=== PATIENT | male | born 1980 | race Caucasian/White ===

== ENCOUNTER 2017-02-16 20:18 | Emergency (ER) | payer SELFPAY ==
[~2017-02-16] VITALS: Ht 175.3 cm; Wt 72.0 kg
[2017-02-16 20:26] VITALS: BP 141/87; TEMP 37.1; O2SAT 100; Ht 175.3 cm; Wt 72.0 kg
[2017-02-16 20:48] VITALS: PULSE 104
--- NOTE | 2017-02-16 21:36 | EMERGENCY ROOM VISIT NOTE ---
History Report prepared by Mayraibpa: Telma Smith Under the Supervision of: Dr. Ruben Caldera D.O. First contact with patient: 20:27 Chief Complaint: OVERDOSE (ACCIDENTAL) Stated Complaint: HEROIN OVERDOSE Nursing Triage Summary: patient used heroin tonight, became unresponsive with resp difficulties. police were called, administered 8mg Narcan. patient was alert and oriented by time EMS arrived and has been since. only complaint at this time is that he is cold and tired. History of Present Illness The patient is a 36 year old male who presents to the Emergency Room with complaints of an episode of an overdose beginning about 2 hours ago. The patient states that he used heroin tonight and became unresponsive. The police were called and administered 8mg of Narcan. Per EMS the patient was alert and oriented on their arrival. The patient complains of being cold and tired. He denies any other illicit drug use. Source of History: patient Onset: 2 hours ago Position: other (global) Quality: other (overdose) Timing: other (episode) Note: Pt complains of being cold and tired. Review of Systems See HPI for pertinent positives & negatives. A total of 10 systems reviewed and were otherwise negative. Past Medical & Surgical Medical Problems: (1) No Known Active Medical Problems Family History No pertinent family history Social History Smoking Status: Current Every Day Smoker Alcohol Use: none Drug Use: heroin Marital Status: single Housing Status: lives with significant other Occupation Status: employed Current/Historical Medications No Active Prescriptions or Reported Meds Allergies Coded Allergies: No Known Allergies (Unverified , 02/16/17) Physical Exam Vital Signs Date Time Temp Pulse Resp B/P (MAP) Pulse Ox O2 Delivery O2 Flow Rate FiO2 02/16/17 20:48 104 02/16/17 20:26 37.1 104 18 141/87 100 Room Air Physical Exam CONSTITUTIONAL/VITAL SIGNS: Reviewed / noted above. GENERAL: Non-toxic in appearance. INTEGUMENTARY: Warm, dry, and [place]. HEAD: Normocephalic. EYES: without scleral icterus or trauma. ENT/OROPHARYNX: clear and moist. LYMPHADENOPATHY/NECK: Is supple without lymphadenopathy or meningismus. RESPIRATORY: Lungs clear and equal. CARDIOVASCULAR: Regular rate and rhythm. GI/ABDOMEN: Soft and nontender. No organomegaly or pulsatile mass. No rebound or guarding. Normal bowel sounds. EXTREMITIES: Warm and well perfused. BACK: No CVA tenderness. NEUROLOGICAL: Intact without focal deficits. PSYCHIATRIC: normal affect. MUSCULOSKELETAL: Normally developed with good muscle tone. Medical Decision & Procedures ED Course 2026: Previous medical records were reviewed. The patient was evaluated in room C9. A complete history and physical examination was performed. 2136: On reevaluation, the patient is doing well. I discussed the results and findings with the patient. He verbalized agreement of the treatment plan. The patient was discharged home. Medical Decision Differential diagnosis: Etiologies such as toxicologic, infection, hypoglycemia, electrolyte abnormalities, cardiac sources, intracerebral event, neurologic, as well as others were entertained. This is a 36-year-old male who overdosed on heroin. He was in the care of his girlfriend when this occurred. The girlfriend called EMS. Police arrived and gave the patient 8 mg of nasal Narcan and the patient was awake alert by the time EMS arrived. The patient was apparently unresponsive and had agonal breathing. The patient feels fine now. He has no complaints. He was observed here until being discharged to the care of his family. He was advised to avoid such activity in the future. Medication Reconcilliation Current Medication List: was personally reviewed by me Blood Pressure Screening Patient's blood pressure: Elevated blood pressure Blood pressure disposition: Elevated BP felt to be situational Impression Primary Impression: Heroin overdose Scribe Attestation The scribe's documentation has been prepared under my direction and personally reviewed by me in its entirety. I confirm that the note above accurately reflects all work, treatment, procedures, and medical decision making performed by me. Departure Information Dispostion Home / Self-Care Prescriptions No Active Prescriptions or Reported Meds Referrals No Doctor, Assigned (PCP) Patient Instructions My [facility] Additional Instructions Avoid activities that resulted in your ED visit today. Talk to your doctor as needed for your issues.
== END 2017-02-16 21:39 | disposition home or self-care (01) ==
LOC: EDBD 20:18 → C.EDC 20:19
DX: T40.1X2A Poisoning by heroin, intentional self-harm, initial encounter (principal); F17.200 Nicotine dependence, unspecified, uncomplicated

== ENCOUNTER 2017-03-29 07:31 | Emergency (ER) | payer OTHER ==
[~2017-03-29] VITALS: Ht 175.3 cm; Wt 65.0 kg
[2017-03-29 07:35] VITALS: TEMP 36.4; Ht 175.3 cm; Wt 65.0 kg
[2017-03-29] MEDS ORDERED: KETOROLAC TROMETHAMINE 30 MG/ML VIAL IV STA (07:55)
[2017-03-29 08:11] LABS: BASO % 0.1 %; BASO ABS # 0.01 K/uL (0-0.2); HEMATOCRIT 48.3 % (42-52); HEMOGLOBIN 17.4 g/dL (14.0-18.0); IG# 0.04 K/uL (0.00-0.02); LYMPH % 7.2 %; LYMPH ABS # 0.98 K/uL (1.2-3.4); MEAN CORPUSCULAR HEMOGLOBIN 33.9 pg (25-34); MEAN PLATELET VOLUME 10.5 fL (7.4-10.4); MONO % 5.2 %; MONO ABS # 0.71 K/uL (0.11-0.59); NEUT % 87.2 %; NEUT ABS # 11.94 K/uL (1.4-6.5); PLATELET COUNT 197 K/uL (130-400); RED CELL DISTRIBUTION WIDTH CV 12.7 % (11.5-14.5); WHITE BLOOD COUNT 13.68 K/uL (4.8-10.8)
--- NOTE | 2017-03-29 08:15 | DIAGNOSTIC IMAGING REPORT ---
SINGLE VIEW CHEST CLINICAL HISTORY: Fever. Sepsis. FINDINGS: An AP, portable, upright chest radiograph is compared to study dated 01/12/2016. The examination is degraded by portable technique and patient rotation. The cardiomediastinal silhouette is unremarkable. The lungs and pleural spaces are clear. No pneumothorax is seen. The bony thorax is grossly intact. IMPRESSION: No active disease in the chest. Electronically signed by: Tyshawn Chávez M.D. 03/29/2017 8:14 AM Dictated Date/Time: 03/29/2017 8:14 AM
[2017-03-29 08:20] VITALS: O2SAT 100
[2017-03-29 08:27] LABS: BLOOD UREA NITROGEN 9 mg/dl (7-18); CALCIUM 10.3 mg/dl (8.5-10.1); CARBON DIOXIDE 22 mmol/L (21-32); CREATININE 0.95 mg/dl (0.60-1.40); GLUCOSE 134 mg/dl (70-99); LIPASE 119 U/L (73-393); POTASSIUM 3.7 mmol/L (3.5-5.1); SODIUM 133 mmol/L (136-145)
[2017-03-29 08:36] LABS: ALKALINE PHOSPHATASE 87 U/L (45-117); ALT/SGPT 40 U/L (12-78); AST/SGOT 24 U/L (15-37); CKMB 1.1 ng/ml (0.5-3.6)
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
[2017-03-29 09:06] VITALS: BP 172/106; PULSE 77; O2SAT 100
== END 2017-03-29 09:08 | disposition home or self-care (01) ==
LOC: C.EDB 07:32 → C.EDA 09:08
DX: R07.9 Chest pain, unspecified (principal); R06.00 Dyspnea, unspecified; F17.200 Nicotine dependence, unspecified, uncomplicated; F11.90 Opioid use, unspecified, uncomplicated

== ENCOUNTER 2017-04-21 13:04 | Emergency (ER) | payer OTHER ==
[~2017-04-21] VITALS: Ht 175.3 cm; Wt 69.0 kg
[2017-04-21 13:07] VITALS: TEMP 36.9; O2SAT 97; Ht 175.3 cm; Wt 69.0 kg
--- NOTE | 2017-04-21 13:22 | EMERGENCY ROOM VISIT NOTE ---
History Report prepared by Scribe: Ashley Wheat Under the Supervision of: Dr. Matt Holliday M.D. First contact with patient: 13:14 Chief Complaint: OVERDOSE (INTENTIONAL) Stated Complaint: OVERDOSE History of Present Illness The patient is a 36 year old male who presents to the Emergency Room with complaints of an intentional overdose. He was brought to the ED via EMS accompanied by PSP after the patients son called 911. PSP state they found the patient to have agonal breathing, respirations of 4 and a pulse of 40 on arrival. PSP administered 12 mg Narcan intranasally and the patient became responsive. The patient has a history of heroin overdoses and was seen here in the ED several weeks ago for a similar episode. EMS reports the patient had a needle in his pocket that they locked. The patient denies any SI or HI. He denies any other recent drug use. He denies using Heroin daily and states "I'm done, I'm trashing my cell phone when I get home". He believes he has had a Tetanus shot in the past 5 years. He states he is feeling "alright" here in the ED. 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 A total of 10 systems reviewed and were otherwise negative. Past Medical & Surgical Medical Problems: (1) No Known Active Medical Problems Family History No pertinent family history Social History Smoking Status: Current Every Day Smoker Alcohol Use: none Drug Use: heroin Marital Status: single Housing Status: lives with significant other Occupation Status: employed Current/Historical Medications Scheduled PRN Naloxone HCl (Narcan), 4 MG NA Q5M PRN for Overdose Allergies Coded Allergies: No Known Allergies (Unverified , 04/21/17) Physical Exam Vital Signs Date Time Temp Pulse Resp B/P (MAP) Pulse Ox O2 Delivery O2 Flow Rate FiO2 04/21/17 15:18 108 18 130/82 96 Room Air 04/21/17 13:58 103 16 116/80 95 Room Air 04/21/17 13:28 104 04/21/17 13:07 97 Room Air 04/21/17 13:07 36.9 105 16 147/95 97 Room Air Physical Exam GENERAL: Patient is well appearing and in no acute distress. HEENT: No acute trauma, normocephalic atraumatic, mucous membranes moist, no nasal congestion, no scleral icterus. NECK: No stridor, no adenopathy, no meningismus, trachea is midline. LUNGS: No dyspnea. Clear to auscultation and equal bilaterally. No wheeze, no rhonchi. HEART: Regular rate and rhythm. No murmurs, rubs, gallops appreciated. ABDOMEN: Soft, nontender, bowel sounds positive, no masses appreciated, no peritonitis. BACK: No midline tenderness, no CVA tenderness EXTREMITIES: Track hearn on arms. Normal motion all extremities, no cyanosis, no edema. NEUROLOGIC: Alert and oriented, no acute motor or sensory deficits, no focal weakness, cranial nerves grossly intact. SKIN: No rash, no jaundice, no diaphoresis. PSYCH: No suicidal or homicidal ideation. Medical Decision & Procedures ED Course 1319: The patient was evaluated in room B3. A complete history and physical exam was performed. 1350: I reevaluated the patient. He is sleeping and in no distress. 1430: I reevaluated the patient. He is awake, alert and oriented. I discussed the risk of what he is doing and discussed the use of a Narcan prescription as well as his discharge instructions. He verbalized complete understanding and agreement. Medical Decision Differential: Suicide Attempt, Mood Disorder, Poisoning, Medication OD, Narcotic OD, Tylenol OD, Salicylated OD, Prolonged QTc, Metabolic/Electrolyte imbalance, Trauma, Rhabdo, Infectious, amongst other pathologies entertained. 36 yr old male with heroin OD well known to department. Discussed dangers of his actions and he is adamant he will never use again. I discussed fact that he may eventually kill himself through these actions. He is breathing comfortably, no distress, declines labs, denies suicidal/homicidal ideation, and vitals are good. He was monitored for > 2 hours from narcan administration and is not having any evidence of respiratory, cardiac nor neural depression. I feel he is safe for discharge from point of this episode. Despite his assurance he will not use again, I have advised he obtain Narcan and have his family learn to use it as needed. Head Trauma GCS Score: 15 Medication Reconcilliation Current Medication List: was personally reviewed by me Blood Pressure Screening Patient's blood pressure: Elevated blood pressure Blood pressure disposition: Elevated BP felt to be situational Impression Primary Impression: Heroin overdose Scribe Attestation The scribe's documentation has been prepared under my direction and personally reviewed by me in its entirety. I confirm that the note above accurately reflects all work, treatment, procedures, and medical decision making performed by me. Departure Information Dispostion Home / Self-Care Prescriptions Naloxone HCl (Narcan) 4 Mg/0.1 Ml Spr 4 MG NA Q5M Y for Overdose, #2 BTL Prov: Matt Holliday M.D. 04/21/17 Referrals Josiane Obrien D.O. (PCP) Patient Instructions Abuse Heroin Abuse and Addiction, My [facility] Additional Instructions Please consider filling prescription for Narcan as this may help save your life if you use again. 911 should always be called if there is need to use Narcan.
[2017-04-21] MEDS ORDERED: NALO1SPR (14:16)
[2017-04-21 15:18] VITALS: BP 130/82; PULSE 108; O2SAT 96
== END 2017-04-21 15:21 | disposition home or self-care (01) ==
LOC: EDBD 13:04 → C.EDB 13:05
DX: T40.1X1A Poisoning by heroin, accidental (unintentional), initial encounter (principal); F17.200 Nicotine dependence, unspecified, uncomplicated

== ENCOUNTER 2018-09-29 15:35 | Inpatient (IN) ==
[2018-09-29] MEDS ORDERED: SODIUM CHLORIDE 0.9% 1000ML 1,000 ML IV ONE ×2 (17:03→17:05)
[2018-09-29] MEDS ORDERED: cefTRIAXone SODIUM 2,000 MG/70 ML BAG IV STA (17:03)
[2018-09-29] MEDS ORDERED: METOCLOPRAMIDE HCL INJ 5 MG/ML 2 ML VIAL IV ONE (17:05)
[2018-09-29] MEDS ORDERED: DiphenhydrAMINE HCL 50 MG/ML VIAL IV STA (17:05)
[2018-09-29] MEDS ORDERED: ACETAMINOPHEN 1,000 MG/100 ML VIAL IV STA (17:05)
--- NOTE | 2018-09-29 17:26 | XRay Report ---
XR chest 1V portable CLINICAL HISTORY: Fever, cough. COMPARISON STUDY: 03/29/2017 FINDINGS: The cardiac and mediastinal contours are normal. There is no evidence of focal pulmonary co nsolidation. There is no evidence of failure. No pleural effusions are visualized.[ IMPRESSION: No active disease in the chest. Electronically signed by: Bernardo Boateng M.D. 09/29/2018 5:25 PM
[2018-09-29 17:51] LABS: Basophils # (auto) 0.04 K/uL (0-0.2); Basophils % (auto) 0.3 %; Eosinophils # (auto) 0.03 K/uL (0-0.5); Eosinophils % (auto) 0.3 %; Hematocrit (blood only) 40.5 % (42-52); Hemoglobin 13.9 g/dL (14.0-18.0); Immature Granulocytes % (auto) 0.9 %; Lymphocytes % (auto) 15.5 %; Mean Corpuscular Hgb Conc 34.3 g/dL (32-36); Mean Corpuscular Volume 98.1 fL (80-100); Mean Platelet Volume 8.9 fL (7.4-10.4); Monocytes % (auto) 6.9 %; Neutrophils # (auto) 8.81 K/uL (1.4-6.5); Neutrophils % (auto) 76.1 %; Platelet Count 241 K/uL (130-400); RDW Coefficient of Variation 15.3 % (11.5-14.5); RDW Standard Deviation 54.9 fL (36.4-46.3); Red Blood Count 4.13 M/uL (4.7-6.1); White Blood Count 11.58 K/uL (4.8-10.8)
[2018-09-29 18:04] LABS: Partial Thromboplastin Time 25.9 Seconds (21.0-31.0); Prothrombin Time 9.9 Seconds (9.0-12.0)
[2018-09-29 18:08] LABS: BUN Creatinine Ratio 9.4 (10-20); Calcium 8.6 mg/dl (8.5-10.1); Creatinine Clr Calc Pharmacy 105.2 ml/min; Est GFR (African American) 118.7; Est GFR (Non-African American) 102.4; Potassium 3.4 mmol/L (3.5-5.1)
--- NOTE | 2018-09-29 18:16 | CT Scan Report ---
CT head/brain wo con CLINICAL HISTORY: Severe headache COMPARISON STUDY: 09/24/2018 TECHNIQUE: Axial CT of the brain is performed from the vertex to the skull base. IV contrast was not administered for this examination. A dose lowering technique was utilized adhering to the principles of ALARA. CT DOSE: 537.48 mGy.cm FINDINGS: No intra or extra-axial mass lesions are visualized. There is no CT evidence of acute cortical infarc tion. There is no evidence of midline shift. There is no acute hemorrhage. No calvarial fractures ar e visualized. There is no evidence of pathologic ventricular dilatation. There is no evidence of acute sinusitis IMPRESSION: No acute intracranial findings Electronically signed by: Bernardo Boateng M.D. 09/29/2018 6:15 PM
[2018-09-29] MEDS ORDERED: LIDOCAINE/EPINEPHRINE 1% 20 ML VIAL INFIL ONE (18:22)
[2018-09-29] MEDS ORDERED: LORazepam 1 MG/2 ML VIAL IV STA (18:22)
[2018-09-29 19:17] LABS: Appearance Urine Clear (Clear); Bacteria Urine Automated Negative (Negative); Bilirubin Urine Negative (Negative); Blood Urine Negative (Negative); Color Urine Yellow; Glucose Urine UA Negative (Negative); Ketones Urine Negative (Negative); Leukocyte Esterase Urine Negative (Negative); Nitrite Urine Negative (Negative); Protein Urine Trace (Negative); RBC Urine Automated 0-4 /hpf (0-4); Specific Gravity Urine 1.018 (1.000-1.030); Urobilinogen Urine Negative (Negative); pH Urine 6.5 (4.5-7.5)
[2018-09-29 19:28] LABS: Influenza A virus by PCR Neg for Influ A (Neg); Influenza B virus by PCR Neg for Influ B (Neg)
[2018-09-29 19:39] LABS: Total Protein CSF 146.7 mg/dl (15-45)
[2018-09-29 19:47] LABS: Appearance CSF Cloudy; CSF Count Tube # 3; CSF Xanthrochromic No xanthochromia; Color CSF Colorless
[2018-09-29 19:49] LABS: Red Blood Cell CSF (A) 2 /uL (0-); Red Blood Cell CSF (B) 2 /uL (0-); White Blood Cell CSF (B) 780 /uL (0-5)
[2018-09-29] MEDS ORDERED: VANCOMYCIN CONSULT ACTIVE PRN ×2 (19:50→22:10)
[2018-09-29] MEDS ORDERED: VANCOMYCIN HCL 1,750 MG in SODIUM CHLORIDE 0.9% 500 ML IV ONE (19:50)
[2018-09-29 19:51] LABS: White Blood Cell CSF (A) 810 /uL (0-5)
[2018-09-29] MEDS ORDERED: ACYCLOVIR SOD 700 MG in DEXTROSE 5% 250 ML IV STA (19:58)
[2018-09-29] MEDS ORDERED: AMPICILLIN 2,000 MG in SODIUM CHLOR 0.9% AD-VAN 100 ML IV STA (20:08)
[2018-09-29] MEDS ORDERED: DEXAMETHASONE SOD PHOSPHATE 10 MG in SYRINGE 0 ML IV STA (20:36)
[2018-09-29 21:39] LABS: Lyme Ab IgM w/WB Rflx Negative (Negative)
[2018-09-29 21:48] LABS: Lyme Ab IgG w/WB Rflx Positive (Negative)
[2018-09-29] MEDS ORDERED: NITROGLYCERIN SL 0.4 MG/TAB TAB SL PRN (22:10)
[2018-09-29] MEDS ORDERED: ONDANSETRON INJ 2 MG/ML 2 ML VIAL IV PRN (22:10)
[2018-09-29] MEDS ORDERED: ACYCLOVIR CONSULT ACTIVE PRN (22:13)
[2018-09-29] MEDS ORDERED: POTASSIUM CHLORIDE 20 MEQ TABCR PO ONE (22:30)
[2018-09-29] MEDS: SODIUM CHLORIDE 0.9% 1000ML 1,000 ML IV SCH (22:40)
--- NOTE | 2018-09-29 22:54 | Emergency Department Note ---
Entered by Samantha Bustillo acting as a scribe for Radames Angulo History of Present Illness General Chief complaint: Headache Stated complaint: MIGRAINE Time Seen by Provider: 09/29/18 17:00 Source: patient Mode of arrival: ambulatory Limitations: no limitations History of Present Illness Provider complaint: Headache Onset (ago): day(s) 2 Location: head Pain Consistency: + other (worsening ) Maximum Pain Intensity: 10 Associated symptoms: + denies other symptoms (rash on his legs, urinary symptoms ), + fever/chills (fever ) and + other (body aches, pain in his neck and back) Treatments prior to arrival: none The patient is a 38 year old male who presents to the ED with complaints of a worsening migraine that began 2 days ago. The patient states that his entire head is in severe pain and he is experiencing pain in his neck. The patient reports that he is unsure of when his fever began. He states that he has body aches. He reports that he was here 2 days ago for a headache and found slight relief following his visit. The patient states that he came back because his headache has gotten much worse. The patient denies pain with urination and any r ashes on his legs. No nausea vomiting or diarrhea. The patient denies being outside recently because he is on house arrest. Home Medications Home Medications Medication Instructions Recorded Confirmed Type [id number] 3 - 4 tab PO Q6H PRN 08/21/18 09/29/18 History [Excedrin Migraine] multivitamin 1 tab PO QAM 08/21/18 09/29/18 History Allergies Allergy/AdvReac Type Severity Reaction Status Date / Time No Known Allergies Allergy Unverified 09/29/18 17:02 Past Med/Surg History Family History Other No significant family history Social History Preferred Language: Azeri [employer] Techn[employer] Required: No Beliefs That Will Affect Care: None Current Living Situation: Family Other Information That Helps Us Care for You: No Feels Safe at Home: Yes Smoking Status: Current every day smoker Tobacco Type: cigarettes Do You Dip or Chew Tobacco: No Second Hand Exposure: No Tobacco Cessation Education Requested by Patient: No Hx Alcohol Use: No Hx Substance Use: No Review of Systems See HPI for pertinent positives & negatives. and A total of 10 systems reviewed and were otherwise negative Physical Exam Vital Signs Vital Signs - 24 hr 09/29/18 15:39 09/29/18 17:40 09/29/18 18:40 Temperature 39.0 C H Temperature Source Oral Sepsis Recent Fever Within 48 Hours No Sepsis New/Unexplained Change in Mental Status No Sepsis Action Taken by Nursing No Action Required Pulse Rate 94 H Pulse Rate [Apical] 79 100 H Pulse Rhythm Regular Pulse Rhythm [Apical] Regular Regular Pulse Strength Normal Pulse Strength [Apical] Normal Normal Respiratory Rate 18 18 14 Respiratory Effort / Characteristics Non-Labored Spontaneous Non-Labored Spontaneous Respiratory Depth Normal Normal Respiratory Pattern Regular Regular Blood Pressure 160/93 H Blood Pressure [Right Arm] 176/109 H 158/89 H Blood Pressure Mean 115 Blood Pressure Mean [Right Arm] 131 112 Blood Pressure Position Sitting Blood Pressure Position [Right Arm] Lying Lying Pulse Oximetry 97 98 97 Oxygen Delivery Method Room Air Room Air Room Air 09/29/18 20:39 09/29/18 21:00 Temperature Temperature Source Sepsis Recent Fever Within 48 Hours Sepsis New/Unexplained Change in Mental Status Sepsis Action Taken by Nursing Pulse Rate Pulse Rate [Apical] 86 86 Pulse Rhythm Pulse Rhythm [Apical] Regular Regular Pulse Strength Pulse Strength [Apical] Normal Normal Respiratory Rate 18 18 Respiratory Effort / Characteristics Non-Labored Spontaneous Non-Labored Spontaneous Respiratory Depth Normal Normal Respiratory Pattern Regular Regular Blood Pressure Blood Pressure [Right Arm] 138/84 133/81 Blood Pressure Mean Blood Pressure Mean [Right Arm] 102 98 Blood Pressure Position Blood Pressure Position [Right Arm] Lying Lying Pulse Oximetry 95 97 Oxygen Delivery Method Room Air Room Air GENERAL: He is oriented to person, place, and time. He appears well-developed and well-nourished. He does not appear distressed. HENT: Exam performed. - Head: Normocephalic and atraumatic. - Right Ear: External ear normal. No mastoid tenderness. - Left Ear: External ear normal. No mastoid tenderness. - Mouth/Throat: The oropharynx is clear and moist. No trismus in the jaw. No dental abscesses or uvula swelling. No oropharyngeal exudate or tonsillar absces ses. EYES: Conjunctivae and EOM are normal. Pupils are equal, round, and reactive to light. Right eye exhibits no discharge. Left eye exhibits no discharge. No scleral icterus. NECK: Normal range of motion. Neck supple. No JVD present. No spinous process tenderness present. No carotid bruit present. No rigidity. No tracheal deviation and normal range of motion present. No Brudzinski's sign and no Kernig's sign noted. CV: Normal rate, regular rhythm, normal heart sounds and intact distal pulses. There is no peripheral edema. Palpable radial pulses bue. PULM/CHEST: Effort normal and breath sounds normal. No respiratory distress. No stridor. He has no wheezes. He has no rales. - Chest Wall: He exhibits no tenderness. ABD: The abdomen is soft. Bowel sounds are normal. He has no distension. No mass is present. There is no tenderness. There is no rebound, no guarding, no Link's sign and no tenderness at McBurney's point. Rovsig negative. MUSC/SKEL: Normal range of motion. There is no peripheral edema, tenderness or deformity. The patient has a police ankle monitor over his left ankle. LYMPH: No cervical adenopathy. NEURO: He is alert and oriented to person, place, and time. He has normal strength. No cranial nerve deficit or sensory deficit. Coordination and gait normal. GCS eye subscore is 4. GCS verbal subscore is 5. GCS motor subscore is 6. Cerebellar tests wnl. SKIN: Skin is warm and dry. He is not diaphoretic. PSYCH: He has a normal mood and affect. Behavior is normal. Judgment and thought content normal. Procedures Lumbar Puncture Time Out Performed: Yes Patient Position: upright Skin Prep: Povidone-Iodine 1% Local Anesthetic: lidocaine 1% and with epi Amount of anesthesia used (mL): 4 Spinal Needle Gauge: 20G Interspace Used: L4-L5 Fluid Initially Obtained: clear (on first attempt) Complications: none Course 170: Past medical records reviewed. The patient was evaluated in room B5. A complete history and physical exam was performed. There was immediate concern for meningitis given the patient's headache, fever, and reported neck pain. The patient did not exhibit any nuchal rigidity though. Given the high concern for meningitis, the patient was immediately treated with Rocephin 2 g IV piggyback. Labs and CT of the head will be ordered prior to conducting lumbar puncture. 1825: I conducted a lumbar puncture on the patient at this time. See procedure note. 2005: The patient's labs showed minimal leukocytosis of 11.58. Flu negative, Urine negative, Chest X-ray negative. The patient's CSF results showed 810 white blood cells and a glucose of 22. The preliminary gram stain for the CSF showed no organisms. The patient was treated with Rocephin prior to LP. The patient will be treated with Vancomycin and Ampicillin to cover any bacterial meningitis because of the patients low CSF glucose. The patient has no history of being immunocompromised, however he is a past drug abuser. The patient will be given Acyclovir for possible herpes encephalitis/meningitis. Cultures for West Nile and Lyme CSF are also pending. I discussed the findings with Dr. Purvis, [facility]. He agreed to the admission of the patient for further management. Consultations Time: 20:05 Administered Medications Sodium Chloride (Nss 1000ml) 1,000 mls @ 125 mls/hr IV .Q8H IAN Stop: 10/29/18 22:09 Last Admin: 09/29/18 22:40 Dose: 125 mls/hr Documented by: [id number] Discontinued Medications Diphenhydramine HCl (Benadryl) 25 mg IV NOW STA Stop: 09/29/18 17:06 Last Admin: 09/29/18 17:42 Dose: 25 mg Documented by: [id number] Ceftriaxone Sodium (Rocephin) 2,000 mg in 70 mls @ 140 mls/hr IV NOW STA Stop: 09/29/18 17:32 Last Infusion: 09/29/18 18:28 Dose: 0 mls/hr Documented by: [id number] Admin: 09/29/18 17:58 Dose: 140 mls/hr Documented by: [id number] Sodium Chloride (Nss 1000ml) 1,000 mls @ 999 mls/hr IV .Q1H1M ONE Stop: 09/29/18 18:03 Last Infusion: 09/29/18 18:42 Dose: 0 mls/hr Documented by: [id number] Admin: 09/29/18 17:41 Dose: 999 mls/hr Documented by: [id number] Sodium Chloride (Nss 1000ml) 1,000 mls @ 999 mls/hr IV .Q1H1M ONE Stop: 09/29/18 18:05 Last Infusion: 09/29/18 19:31 Dose: 0 mls/hr Documented by: [id number] Admin: 09/29/18 18:30 Dose: 999 mls/hr Documented by: [id number] Acetaminophen (Ofirmev) 1,000 mg in 100 mls @ 400 mls/hr IV NOW STA Stop: 09/29/18 17:19 Last Infusion: 09/29/18 18:17 Dose: 0 mls/hr Documented by: [id number] Admin: 09/29/18 17:42 Dose: 400 mls/hr Documented by: [id number] Lorazepam (Ativan) 1 mg in 2 mls @ 2 mls/min IV NOW STA Stop: 09/29/18 18:23 Last Admin: 09/29/18 18:30 Dose: 2 mls/min Documented by: [id number] Vancomycin HCl 1,750 mg/ (Sodium Chloride) 535 mls @ 200 mls/hr IV NOW ONE; Protocol Stop: 09/29/18 22:30 Last Admin: 09/29/18 20:30 Dose: 200 mls/hr Documented by: [id number] Acyclovir Sodium 700 mg/ (Dextrose) 264 mls @ 250 mls/hr IV NOW STA Stop: 09/29/18 21:01 Last Infusion: 09/29/18 21:34 Dose: 0 mls/hr Documented by: [id number] Admin: 09/29/18 20:30 Dose: 250 mls/hr Documented by: [id number] Ampicillin Sodium 2,000 mg/ (Sodium Chloride) 100 mls @ 200 mls/hr IV NOW STA Stop: 09/29/18 20:37 Last Infusion: 09/29/18 20:53 Dose: 0 mls/hr Documented by: [id number] Admin: 09/29/18 20:23 Dose: 200 mls/hr Documented by: [id number] Dexamethasone Sodium Phosphate (10 mg/ Syringe) 2.5 mls @ 1 mls/min IV NOW STA Stop: 09/29/18 20:38 Last Admin: 09/29/18 21:13 Dose: 1 mls/min Documented by: [id number] Lidocaine/Epinephrine (Xylocaine/Epinephrine 1%) 20 ml INFIL NOW ONE Stop: 09/29/18 18:23 Last Admin: 09/29/18 18:30 Dose: 20 ml Documented by: [id number] Metoclopramide HCl (Reglan) 5 mg IV ONE ONE Stop: 09/29/18 17:06 Last Admin: 09/29/18 17:42 Dose: 5 mg Documented by: [id number] Potassium Chloride (Klor-Con M20) 20 meq PO ONE ONE Stop: 09/29/18 22:31 Last Admin: 09/29/18 22:40 Dose: 20 meq Documented by: [id number] Medical Decision Making Medical Records Attestation: I reviewed the patient's medical records. Home Medications Current Medication List: was personally reviewed by me Laboratory Data Attestation: I reviewed the patient's lab results. Result diagrams: 09/29/18 17:40 09/29/18 17:40 Lab Results 09/29/18 09/29/18 09/29/18 Range/Units 17:40 17:40 17:40 WBC 11.58 H (4.8-10.8) K/uL RBC 4.13 L (4.7-6.1) M/uL Hgb 13.9 L (14.0-18.0) g/dL Hct 40.5 L (42-52) % MCV 98.1 (80-100) fL MCH 33.7 (25-34) pg MCHC 34.3 (32-36) g/dL RDW Std Deviation 54.9 H (36.4-46.3) fL RDW Coeff of Giuliana 15.3 H (11.5-14.5) % Plt Count 241 (130-400) K/uL MPV 8.9 (7.4-10.4) fL Immature Gran % (Auto) 0.9 % Neut % (Auto) 76.1 % Lymph % (Auto) 15.5 % Walton % (Auto) 6.9 % Eos % (Auto) 0.3 % Baso % (Auto) 0.3 % Immature Gran # (Auto) 0.10 H (0.00-0.02) K/uL Neut # (Auto) 8.81 H (1.4-6.5) K/uL Lymph # (Auto) 1.80 (1.2-3.4) K/uL Walton # (Auto) 0.80 H (0.11-0.59) K/uL Eos # (Auto) 0.03 (0-0.5) K/uL Baso # (Auto) 0.04 (0-0.2) K/uL PT 9.9 (9.0-12.0) Seconds INR 1.0 (0.9-1.1) APTT 25.9 (21.0-31.0) Seconds PTT Ratio 1.0 Sodium 133 L (136-145) mmol/L Potassium 3.4 L (3.5-5.1) mmol/L Chloride 97 L (98-107) mmol/L Carbon Dioxide 27 (21-32) mmol/L Anion Gap 9.0 (3-11) BUN 9 (7-18) mg/dl Creatinine 0.94 (0.6-1.4) mg/dl Est Cr Clr Drug Dosing 105.2 ml/min Est GFR ( Amer) 118.7 Est GFR (Non-Af Amer) 102.4 BUN/Creatinine Ratio 9.4 L (10-20) Glucose 104 H (70-99) mg/dl Lactate (0.4-2.0) mmol/L Calcium 8.6 (8.5-10.1) mg/dl Urine Color Urine Appearance (Clear) Urine pH (4.5-7.5) Ur Specific [place] (1.000-1.030) Urine Protein (Negative) Urine Glucose (UA) (Negative) Urine Ketones (Negative) Urine Blood (Negative) Urine Nitrite (Negative) Urine Bilirubin (Negative) Urine Urobilinogen (Negative) Ur Leukocyte Esterase (Negative) Urine WBC (Auto) (0-5) /hpf Urine RBC (Auto) (0-4) /hpf U Hyaline Cast (Auto) (0-5) /lpf U Epithel Cells (Auto) (0-5) /lpf Urine Bacteria (Auto) (Negative) CSF Appearance CSF Color Xanthrochromic CSF WBC (0-5) /uL CSF RBC (0-) /uL CSF Cell Count Tube # CSF Mononuclear WBCs % % CSF Polynuclear WBCs % % CSF Chemistry Tube # CSF Glucose (40-70) mg/dl CSF Total Protein (15-45) mg/dl Lyme Disease IgG Ab (Negative) Lyme Disease IgM Ab (Negative) Influenza Type A (PCR) (Neg) Influenza Type B (PCR) (Neg) 09/29/18 09/29/18 09/29/18 Range/Units 17:40 18:45 18:45 WBC (4.8-10.8) K/uL RBC (4.7-6.1) M/uL Hgb (14.0-18.0) g/dL Hct (42-52) % MCV (80-100) fL MCH (25-34) pg MCHC (32-36) g/dL RDW Std Deviation (36.4-46.3) fL RDW Coeff of Giuilana (11.5-14.5) % Plt Count (130-400) K/uL MPV (7.4-10.4) fL Immature Gran % (Auto) % Neut % (Auto) % Lymph % (Auto) % Walton % (Auto) % Eos % (Auto) % Baso % (Auto) % Immature Gran # (Auto) (0.00-0.02) K/uL Neut # (Auto) (1.4-6.5) K/uL Lymph # (Auto) (1.2-3.4) K/uL Walton # (Auto) (0.11-0.59) K/uL Eos # (Auto) (0-0.5) K/uL Baso # (Auto) (0-0.2) K/uL PT (9.0-12.0) Seconds INR (0.9-1.1) APTT (21.0-31.0) Seconds PTT Ratio Sodium (136-145) mmol/L Potassium (3.5-5.1) mmol/L Chloride (98-107) mmol/L Carbon Dioxide (21-32) mmol/L Anion Gap (3-11) BUN (7-18) mg/dl Creatinine (0.6-1.4) mg/dl Est Cr Clr Drug Dosing ml/min Est GFR ( Amer) Est GFR (Non-Af Amer) BUN/Creatinine Ratio (10-20) Glucose (70-99) mg/dl Lactate 1.8 (0.4-2.0) mmol/L Calcium (8.5-10.1) mg/dl Urine Color Urine Appearance (Clear) Urine pH (4.5-7.5) Ur Specific [place] (1.000-1.030) Urine Protein (Negative) Urine Glucose (UA) (Negative) Urine Ketones (Negative) Urine Blood (Negative) Urine Nitrite (Negative) Urine Bilirubin (Negative) Urine Urobilinogen (Negative) Ur Leukocyte Esterase (Negative) Urine WBC (Auto) (0-5) /hpf Urine RBC (Auto) (0-4) /hpf U Hyaline Cast (Auto) (0-5) /lpf U Epithel Cells (Auto) (0-5) /lpf Urine Bacteria (Auto) (Negative) CSF Appearance Cloudy CSF Color Colorless Xanthrochromic No xanthochromia CSF WBC 810 H* (0-5) /uL CSF RBC 2 (0-) /uL CSF Cell Count Tube # 3 CSF Mononuclear WBCs % 49.0 % CSF Polynuclear WBCs % 51.0 % CSF Chemistry Tube # CSF Glucose (40-70) mg/dl CSF Total Protein (15-45) mg/dl Lyme Disease IgG Ab (Negative) Lyme Disease IgM Ab (Negative) Influenza Type A (PCR) Neg for Influ A (Neg) Influenza Type B (PCR) Neg for Influ B (Neg) 09/29/18 09/29/18 09/29/18 Range/Units 18:45 18:45 20:24 WBC (4.8-10.8) K/uL RBC (4.7-6.1) M/uL Hgb (14.0-18.0) g/dL Hct (42-52) % MCV (80-100) fL MCH (25-34) pg MCHC (32-36) g/dL RDW Std Deviation (36.4-46.3) fL RDW Coeff of Giuliana (11.5-14.5) % Plt Count (130-400) K/uL MPV (7.4-10.4) fL Immature Gran % (Auto) % Neut % (Auto) % Lymph % (Auto) % Walton % (Auto) % Eos % (Auto) % Baso % (Auto) % Immature Gran # (Auto) (0.00-0.02) K/uL Neut # (Auto) (1.4-6.5) K/uL Lymph # (Auto) (1.2-3.4) K/uL Walton # (Auto) (0.11-0.59) K/uL Eos # (Auto) (0-0.5) K/uL Baso # (Auto) (0-0.2) K/uL PT (9.0-12.0) Seconds INR (0.9-1.1) APTT (21.0-31.0) Seconds PTT Ratio Sodium (136-145) mmol/L Potassium (3.5-5.1) mmol/L Chloride (98-107) mmol/L Carbon Dioxide (21-32) mmol/L Anion Gap (3-11) BUN (7-18) mg/dl Creatinine (0.6-1.4) mg/dl Est Cr Clr Drug Dosing ml/min Est GFR ( Amer) Est GFR (Non-Af Amer) BUN/Creatinine Ratio (10-20) Glucose (70-99) mg/dl Lactate (0.4-2.0) mmol/L Calcium (8.5-10.1) mg/dl Urine Color Yellow Urine Appearance Clear (Clear) Urine pH 6.5 (4.5-7.5) Ur Specific [place] 1.018 (1.000-1.030) Urine Protein Trace H (Negative) Urine Glucose (UA) Negative (Negative) Urine Ketones Negative (Negative) Urine Blood Negative (Negative) Urine Nitrite Negative (Negative) Urine Bilirubin Negative (Negative) Urine Urobilinogen Negative (Negative) Ur Leukocyte Esterase Negative (Negative) Urine WBC (Auto) 5-10 H (0-5) /hpf Urine RBC (Auto) 0-4 (0-4) /hpf U Hyaline Cast (Auto) 1-5 (0-5) /lpf U Epithel Cells (Auto) 5-10 H (0-5) /lpf Urine Bacteria (Auto) Negative (Negative) CSF Appearance CSF Color Xanthrochromic CSF WBC (0-5) /uL CSF RBC (0-) /uL CSF Cell Count Tube # CSF Mononuclear WBCs % % CSF Polynuclear WBCs % % CSF Chemistry Tube # 1 CSF Glucose 22 L (40-70) mg/dl CSF Total Protein 146.7 H (15-45) mg/dl Lyme Disease IgG Ab Positive A (Negative) Lyme Disease IgM Ab Negative (Negative) Influenza Type A (PCR) (Neg) Influenza Type B (PCR) (Neg) Imaging Data Radiologist's Impression: Radiology results as stated below per my review and the radiologist's interpretation: XR chest 1V portable CLINICAL HISTORY: Fever, cough. COMPARISON STUDY: 03/29/2017 FINDINGS: The cardiac and mediastinal contours are normal. There is no evidence of focal pulmonary consolidation. There is no evidence of failure. No pleural effusions are visualized.[ IMPRESSION: No active disease in the chest. Electronically signed by: Bernardo Boateng M.D. 09/29/2018 5:[address] head/brain wo con CLINICAL HISTORY: Severe headache COMPARISON STUDY: 09/24/2018 TECHNIQUE: Axial CT of the brain is performed from the vertex to the skull base. IV contrast was not administered for this examination. A dose lowering t echnique was utilized adhering to the principles of ALARA. CT DOSE: 537.48 mGy.cm FINDINGS: No intra or extra-axial mass lesions are visualized. There is no CT evidence of acute cortical infarction. There is no evidence of midline shift. There is no acute hemorrhage. No calvarial fractures are visualized. There is no evidence of pathologic ventricular dilatation. There is no evidence of acute sinusitis IMPRESSION: No acute intracranial findings Electronically signed by: Bernardo Boateng M.D. 09/29/2018 6:15 PM Blood Pressure Blood Pressure Findings: Normal blood pressure Blood Pressure Disposition: did not require urgent referral [facility] Narrative 1701: Past medical records reviewed. The patient was evaluated in room B5. A complete history and physical exam was performed. There was immediate concern for meningitis given the patient's headache, fever, and reported neck pain. The patient did not exhibit any nuchal rigidity though. Given the high concern for meningitis, the patient was immediately treated with Rocephin 2 g IV piggyback. Labs and CT of the head will be ordered prior to conducting lumbar puncture. 1825: I conducted a lumbar puncture on the patient at this time. See procedure note. 2005: The patient's labs showed minimal leukocytosis of 11.58. Flu negative, Urine negative, Chest X-ray negative. The patient's CSF results showed 810 white blood cells and a glucose of 22. The preliminary gram stain for the CSF showed no organisms. The patient was treated with Rocephin prior to LP. The patient will be treated with Vancomycin and Ampicillin to cover any bacterial meningitis because of the patients low CSF glucose. The patient has no history of being immunocompromised, however he is a past drug abuser. The patient will be given Acyclovir for possible herpes encephalitis/meningitis. Cultures for West Nile and Lyme CSF are also pending. I discussed the findings with Dr. Purvis, [facility]. He agreed to the admission of the patient for further management. Impression & Plan Meningitis Discharge Plan Visit Data *Final* Discharge Date/Time: 09/29/18 21:46 Chief Complaint: Headache Stated Complaint: MIGRAINE ED Provider: Radames Angulo Discharge Problem: Meningitis Patient Disposition: Admitted As Inpatient Discharge Instructions Interventions: ED Discharge Assessment Last Done: 09/29/18 21:46 The scribe's documentation has been prepared under my direction and personally reviewed by me in its entirety. I confirm that the note above accurately reflects all work, treatment, procedures, and medical decision making performed by me.
[2018-09-30] MEDS: VANCOMYCIN HCL 1,000 MG in SODIUM CHLORIDE 0.9% 250 ML IV SCH ×3 (01:06→17:53)
[2018-09-30] MEDS: ACYCLOVIR SOD 700 MG in DEXTROSE 5% 250 ML IV SCH ×3 (03:57→20:07)
[2018-09-30] MEDS: cefTRIAXone SODIUM 2,000 MG in DEXTROSE 5% 50 ML IV SCH ×2 (05:18→17:52)
[2018-09-30 05:26] LABS: Basophils # (auto) 0.02 K/uL (0-0.2); Basophils % (auto) 0.2 %; Hematocrit (blood only) 41.6 % (42-52); Hemoglobin 14.2 g/dL (14.0-18.0); Immature Granulocytes # (auto) 0.07 K/uL (0.00-0.02); Immature Granulocytes % (auto) 0.9 %; Lymphocytes % (auto) 9.9 %; Mean Corpuscular Hgb Conc 34.1 g/dL (32-36); Mean Corpuscular Volume 98.6 fL (80-100); Mean Platelet Volume 8.9 fL (7.4-10.4); Monocytes # (auto) 0.13 K/uL (0.11-0.59); Monocytes % (auto) 1.6 %; Neutrophils # (auto) 7.03 K/uL (1.4-6.5); Neutrophils % (auto) 87.4 %; Platelet Count 241 K/uL (130-400); RDW Coefficient of Variation 15.2 % (11.5-14.5); RDW Standard Deviation 55.4 fL (36.4-46.3); Red Blood Count 4.22 M/uL (4.7-6.1); White Blood Count 8.05 K/uL (4.8-10.8)
[2018-09-30 05:53] LABS: Calcium 8.6 mg/dl (8.5-10.1); Creatinine Clr Calc Pharmacy 105.4 ml/min; Est GFR (African American) 120.3; Est GFR (Non-African American) 103.8; Magnesium 2.2 mg/dl (1.8-2.4)
[2018-09-30] MEDS: SODIUM CHLORIDE 0.9% 1000ML 1,000 ML IV SCH ×3 (06:04→23:35)
--- NOTE | 2018-09-30 06:50 | History and Physical Report ---
DATE OF ADMISSION: 09/29/2018 CHIEF COMPLAINT: Severe headache. HISTORY OF PRESENT ILLNESS: This is a 38-year-old male with past medical history significant for heroin abuse, history of migraines, who presented with severe headaches and lumbar puncture done in the ER shows meningitis with CSF WBC of 810, glucose of 22, and total protein of 146.7. Prior to the procedure, he was given Ativan and Benadryl. The patient is currently very drowsy . Constantly have to wake him up to ask questions.He says the headache is better now. Denies any neck pain. Denies any chest pain or shortness of breath. Denies any nausea, denies any abdominal pain. He has normal bowel and bladder movements. His mother left home, tried to follow his mother, but she is not back at home. The patient is currently sedated. Apparently, the patient was here in the hospital on 09/24/2018 with severe headaches, evidence of mild photophobia. And was advised to come back if symptoms worsen. There is question of using monthly Vivitrol injections to wean off of Suboxone that he is currently on and he recently completed rehab for heroin addiction, his last use of heroin was 04/2017 as per the ER notes.Mother called later and says patient was having severe headaches since last couple of weeks and was having neck stiffness and fevers at home and that's the reason he came to ER. She says patient is not currently taking any drugs. ALLERGIES: No known drug allergies. PAST MEDICAL HISTORY: As mentioned above. PAST SURGICAL HISTORY: None. MEDICATIONS: Excedrin Migraine 3-4 tablets p.o. q.6 hours p.r.n., multivitamins daily, questionable Suboxone and Vivitrol injections . FAMILY HISTORY: Significant for father has diabetes. Mother has migraines and stroke. SOCIAL HISTORY: , lives with mother. Smokes half pack a day for 16 years. No alcohol use, history of heroin use in the past, last use was in April 2017. REVIEW OF SYMPTOMS: As per HPI, difficult to obtain. The patient is currently sedated and very drowsy. PHYSICAL EXAMINATION: GENERAL: The patient is drowsy, does not seem to be in acute distress. VITAL SIGNS: Temperature 39, pulse 86, respiratory rate 18, blood pressure 130/84, oxygen saturation 95% on room air. HEENT: No pallor, no icterus. Pupils equal, round, reactive to light. NECK: No JVD, no neck masses. Supple. CARDIOVASCULAR: S1, S2 heard, regular rate and rhythm, no murmur, no gallop. RESPIRATORY SYSTEM: Normal AP diameter. No accessory muscle use. No wheezing, no crackles. ABDOMEN: Soft, bowel sounds present, nontender. No distention. CENTRAL NERVOUS SYSTEM: The patient is currently drowsy. Have to wake up constantly and answers appropriately. Moves extremities. EXTREMITIES: No edema, no erythema seen. LABORATORIES DATA: WBC 11.5, hemoglobin 13.9, hematocrit 40.5, platelets 241. PT 10.9, INR 1, APTT 25.9. Sodium 133, potassium 3.4, chloride 97, bicarbonate 27, BUN 9, creatinine 0.9, serum glucose 104. Lactate 1.8, calcium 8.6. Urinalysis negative. IMAGING DATA: Lumbar puncture CSF WBC 810, RBC 2, glucose 22, total protein 146.7. Influenza A and B negative. CT of the head, no acute intracranial findings. Chest x-ray, no acute disease in the chest. ASSESSMENT AND PLAN: This is a 38-year-old male who presents with severe headache and fever and found to have meningitis. 1. Meningitis, severe headaches. CSF mostly consistent with bacterial meningitis. Lyme IG positive. Await confirmation. The patient received IV vancomycin, IV Rocephin, IV ampicillin and IV acyclovir in the ER. We will continue with IV vancomycin, Rocephin and acyclovir. Follow the cultures drawn in the ER. We will also consult ID for help with antibiotics. We will keep him on IV normal saline 125 mL per hour. Pain control with IV Toradol. We will also give a dose of dexamethasone. 2.Patient with history of heroin abuse, last use was in April 2017 and he also completed rehabilitation. Question of being on Suboxone and monthly Vivitrol injection to wean off from Suboxone. Needs to clarify when patient is more awake. 3.migraines, Excedrin p.r.n. 4. Deep venous thrombosis prophylaxis, sequential compression devices. DISPOSITION: Admit to med/surg tele. Level 1 full code. MTDD
--- NOTE | 2018-09-30 07:53 | Hospitalist Progress Note ---
Date of Service September 30, 2018 Subjective She is a 38-year-old male with past medical history of heroin abuse, migraine, presented to ED second time with severe headache, neck stiffness, lumbar puncture done shows meningitis Bacterial meningitis Afebrile, no leukocytosis Status post lumbar puncture on 09/29/2018WBC 8-10, glucose 22, total protein 146. Received IV vancomycin, IV Rocephin, IV ampicillin, IV acyclovir in ED. Continue with IV vancomycin, Rocephin, acyclovir, IV Ampicillin per ID IV normal saline at 125 cc/h Pain control with IV Toradol as needed Infectious disease consulted. Appreciate inputs History of heroin abuse -Last dose of heroin was April 2017 as per ER notes. Recently completed rehab for heroin abuse. -Per records, likely on Vivitrol injections to wean off of Suboxone DVT prophylaxis SCDs Full code Disposition Medical management in progress Expected discharge home in stable Ok to transfer to med surg Results & Data Vital Signs (Past 12 Hours) Vital Signs Temp Pulse Pulse Pulse Resp BP BP 09/30/18 07:30 36.6 C 93 H 18 141/96 H 09/30/18 03:50 36.4 C L 84 18 132/74 09/30/18 00:24 108 H 09/29/18 23:00 36.3 C L 86 20 161/100 H 09/29/18 22:31 104 H 09/29/18 21:55 36.7 C 88 12 128/91 09/29/18 21:45 37.0 C 74 12 123/82 09/29/18 21:00 86 18 133/81 09/29/18 20:39 86 18 138/84 Pulse Ox 09/30/18 07:30 96 09/30/18 03:50 96 09/30/18 00:24 09/29/18 23:00 99 09/29/18 22:31 09/29/18 21:55 98 09/29/18 21:45 97 09/29/18 21:00 97 09/29/18 20:39 95
--- NOTE | 2018-09-30 09:14 | Pharmacy Report ---
Pharmacy Abx Initial Consult - Date of Service September 30, 2018 - Pharmacy Dosing Scope Date of Consult: 09/29/18 Consultation requested by: Dr. Purvis Pharmacy is consulted to initiate Acyclovir and Vancomycin IV dosing therapy, order appropriate labs and adjust drug dose/frequency. - Subjective The patient is a 38 year old M admitted on 09/29/18 21:10. - Objective Height: 5 ft 9 in Weight: 70.3 kg Vital Signs (Past 12hrs): Vital Signs Temp Pulse Pulse Pulse Resp BP BP 09/30/18 07:30 36.6 C 93 H 18 141/96 H 09/30/18 03:50 36.4 C L 84 18 132/74 09/30/18 00:24 108 H 09/29/18 23:00 36.3 C L 86 20 161/100 H 09/29/18 22:31 104 H 09/29/18 21:55 36.7 C 88 12 128/91 09/29/18 21:45 37.0 C 74 12 123/82 Pulse Ox 09/30/18 07:30 96 09/30/18 03:50 96 09/30/18 00:24 09/29/18 23:00 99 09/29/18 22:31 09/29/18 21:55 98 09/29/18 21:45 97 Lab Results (24hrs): Laboratory Tests (24 Hours) 09/30/18 09/30/18 09/29/18 05:16 05:16 17:40 WBC 8.05 Neut # (Auto) 7.03 H Creatinine 0.93 0.94 Est Cr Clr Drug Dosing 105.4 105.2 09/29/18 17:40 WBC 11.58 H Neut # (Auto) 8.81 H Creatinine Est Cr Clr Drug Dosing Micro Results: 09/29/18 18:45 Gram Stain - Final Cerebral Spinal Fluid CSF Culture - Pending - Risk Factors for Resistance None - Assessment & Plan Assessment 38 year old M admitted for meningitis Patient has a pertinent PMH of heroin abuse CSF analysis: WBC 810, Protein 147, Glucose 22 CSF Culture: no organisms seen on Gram stain Plan IV Vancomycin, Ceftriaxone, and Acyclovir for treatment of meningitis Vancomycin IV * Estimated PK Parameters: Vd 0.7 L/kg, Harvey 0.092 hr-1, t1/2 7.5 hrs * Loading dose: 1750 mg (25 mg/kg) * Maintenance dose: 1000 mg IV (15 mg/kg) every 8 hours * Goal trough level for meningitis: 15 to 20 mcg/mL * Trough level ordered for 09/30/18 prior to the 4th dose Acyclovir IV * IBW: 70 kg * Maintenance dose: 700 mg IV (10 mg/kg) every 8 hours Pharmacy will continue to follow and will adjust dose/frequency as necessary. Thank you.
[2018-09-30] MEDS: MULTIVITAMIN TAB PO SCH (10:24)
--- NOTE | 2018-09-30 10:44 | Infectious Disease Consult ---
Date of Consultation September 30, 2018 Assessment & Plan (1) Meningitis: Patient with acute meningitis, worrisome for bacterial infection given low blood sugar in CSF. Have added ampicillin to cover potential for Listeria infection. Await final culture results. Will follow. History of Present Illness Reason for Consultation: Meningitis Attending Physician: Peg Zendejas History of Present Illness 38-year-old male with history of heroin abuse, presents to the hospital with acute onset of severe headache, neck stiffness, and photophobia. He underwent lumbar puncture with findings of significant pleocytosis with mixed polys and mononuclear cells, as well as hypoglycorrhachia and elevated protein. Gram stain is negative for organisms, culture is pending. No ill contacts, no other significant travel or exposure history. Allergies Allergy/AdvReac Type Severity Reaction Status Date / Time No Known Allergies Allergy Unverified 09/29/18 17:02 Home Medications Home Medications Medication Instructions Recorded Confirmed Type [id number] 3 - 4 tab PO Q6H PRN 08/21/18 09/29/18 History [Excedrin Migraine] multivitamin 1 tab PO QAM 08/21/18 09/29/18 History Patient History Medical History Apnea History of heroin use Surgical History No pertinent past surgical history Family History Other No significant family history Social History Preferred Language: Lithuanian Power Regulator Required: No Beliefs That Will Affect Care: None Current Living Situation: Family Other Information That Helps Us Care for You: No Feels Safe at Home: Yes Smoking Status: Current every day smoker Tobacco Type: cigarettes Do You Dip or Chew Tobacco: No Second Hand Exposure: No Tobacco Cessation Education Requested by Patient: No Hx Alcohol Use: No Hx Substance Use: No Review of Systems Review of Systems: All systems reviewed & are unremarkable except as noted in HPI & below Physical Exam Constitutional: WD/WN, vitals as above comfortable; no acute distress Eyes: PERRL, conjunctivae normal, anicteric sclerae ENMT: external ear and nose normal, oropharynx normal Neck: trachea midline, no thyromegaly neck nontender Respiratory: normal respiratory effort, lungs clear to auscultation normal percussion; does not use accessory muscles Cardiovascular: Rate/Rhythm: regular rate and regular rhythm Heart Sounds: normal S1 and normal S2; no gallop, no murmur and no cardiac rub Vessels: normal peripheral pulses; no JVD Gastrointestinal (Abdomen): normal bowel sounds, soft, nontender, no hepatosplenomegaly Musculoskeletal: no cyanosis or clubbing, extremities motor strength 5/5 Spine: thoracic spine normal to inspection and lumbar spine normal to inspection; no cervical spinal tenderness Skin: no rashes, warm and dry normal turgor; no lesions Neurologic: patellar DTR's 2+ bilat, sensation intact no focal motor deficits Psychiatric: A+Ox3, euthymic affect Orientation: cooperative Lymphatic: no cervical or axillary lymphadenopathy no inguinal lymphadenopathy Results & Data Vital Signs (Past 12 Hours) Vital Signs Temp Pulse Pulse Resp BP Pulse Ox 09/30/18 08:00 79 09/30/18 07:30 36.6 C 93 H 18 141/96 H 96 09/30/18 03:50 36.4 C L 84 18 132/74 96 09/30/18 00:24 108 H 09/29/18 23:00 36.3 C L 86 20 161/100 H 99 Laboratory Results Short CBC 09/29/18 09/30/18 Range/Units 17:40 05:16 WBC 11.58 H 8.05 (4.8-10.8) K/uL Hgb 13.9 L 14.2 (14.0-18.0) g/dL Hct 40.5 L 41.6 L (42-52) % Plt Count 241 241 (130-400) K/uL [facility] 09/29/18 09/30/18 17:40 05:16 Sodium 133 L 137 Potassium 3.4 L 4.0 D Chloride 97 L 104 Carbon Dioxide 27 26 BUN 9 7 Creatinine 0.94 0.93 Glucose 104 H 167 H Calcium 8.6 8.6 Urine 09/29/18 Range/Units 18:45 Urine Color Yellow Urine Appearance Clear (Clear) Urine pH 6.5 (4.5-7.5) Ur Specific [place] 1.018 (1.000-1.030) Urine Protein Trace H (Negative) Urine Glucose (UA) Negative (Negative) Diagnostic Findings Microbiology 09/29/18 18:45 Cerebral Spinal Fluid Gram Stain - Final CT head/brain wo con CLINICAL HISTORY: Severe headache COMPARISON STUDY: 09/24/2018 TECHNIQUE: Axial CT of the brain is performed from the vertex to the skull base. IV contrast was not administered for this examination. A dose lowering technique was utilized adhering to the principles of ALARA. CT DOSE: 537.48 mGy.cm FINDINGS: No intra or extra-axial mass lesions are visualized. There is no CT evidence of acute cortical infarction. There is no evidence of midline shift. There is no acute hemorrhage. No calvarial fractures are visualized. There is no evidence of pathologic ventricular dilatation. There is no evidence of acute sinusitis IMPRESSION: No acute intracranial findings Electronically signed by: Bernardo Boateng M.D. 09/29/2018 6:15 PM Dictated: 09/29/18 1813
[2018-09-30] MEDS: AMPICILLIN 2,000 MG in SODIUM CHLOR 0.9% AD-VAN 100 ML IV SCH ×4 (11:32→23:35)
[2018-09-30] MEDS ORDERED: VANCOMYCIN TROUGH ONE (17:30)
[2018-09-30] MEDS: KETOROLAC 30 MG/ML VIAL IV PRN (20:19)
--- NOTE | 2018-09-30 20:19 | Pharmacy Report ---
Pharmacy Abx Dose Short Note - Date of Service September 30, 2018 - Assessment & Plan Assessment 38 year old M receiving Vancomycin, acyclovir, Rocephin and ampicillin for treatment of meningitis. Day # 2 of antimicrobial therapy. Plan Vancomycin * Trough level of 11.4 mcg/mL is subtherapeutic, however it was ordered prior to steady state. * Though the trough level is expected to increase, will change to 1250 mg IV every 8 hours and started 6 hours after last dose of 1000mg. * Goal trough level for meningitis : 15 to 20 mcg/mL * Trough level ordered for: 10/01/18 @1530 Acyclovir * Continue 700mg IV q8h Pharmacy will continue to follow and will adjust dose/frequency as necessary. Thank you.
[2018-09-30] MEDS ORDERED: Nursing to Pharmacy Communication ONE (21:59)
[2018-09-30] MEDS: VANCOMYCIN HCL 1,250 MG in SODIUM CHLORIDE 0.9% 250 ML IV SCH (23:35)
[2018-10-01] MEDS: ACYCLOVIR SOD 700 MG in DEXTROSE 5% 250 ML IV SCH ×3 (03:49→20:52)
[2018-10-01] MEDS: AMPICILLIN 2,000 MG in SODIUM CHLOR 0.9% AD-VAN 100 ML IV SCH ×6 (03:49→23:48)
[2018-10-01] MEDS: KETOROLAC 30 MG/ML VIAL IV PRN ×3 (04:48→18:57)
[2018-10-01] MEDS: cefTRIAXone SODIUM 2,000 MG in DEXTROSE 5% 50 ML IV SCH ×2 (05:03→17:46)
[2018-10-01] MEDS: ACETAMINOPHEN 325 MG TAB PO PRN ×4 (05:38→23:46)
[2018-10-01] MEDS ORDERED: TRAMADOL HCL 50 MG TABLET PO STA (06:00)
[2018-10-01 07:39] LABS: Hematocrit (blood only) 41.9 % (42-52); Hemoglobin 14.3 g/dL (14.0-18.0); Mean Corpuscular Hgb Conc 34.1 g/dL (32-36); Mean Corpuscular Volume 97.2 fL (80-100); Mean Platelet Volume 9.1 fL (7.4-10.4); Platelet Count 224 K/uL (130-400); RDW Coefficient of Variation 15.7 % (11.5-14.5); RDW Standard Deviation 55.8 fL (36.4-46.3); Red Blood Count 4.31 M/uL (4.7-6.1); White Blood Count 11.74 K/uL (4.8-10.8)
[2018-10-01] MEDS: VANCOMYCIN HCL 1,250 MG in SODIUM CHLORIDE 0.9% 250 ML IV SCH ×2 (08:12→16:14)
[2018-10-01 08:15] LABS: BUN Creatinine Ratio 11.1 (10-20); Calcium 9.1 mg/dl (8.5-10.1); Est GFR (African American) 102.7; Est GFR (Non-African American) 88.6; Potassium 3.6 mmol/L (3.5-5.1)
[2018-10-01] MEDS: NICOTINE 14 MG/24 HR PATCH TD SCH (09:04)
[2018-10-01] MEDS: SODIUM CHLORIDE 0.9% 1000ML 1,000 ML IV SCH ×3 (09:48→23:48)
[2018-10-01] MEDS: MULTIVITAMIN TAB PO SCH (10:20)
[2018-10-01] MEDS ORDERED: VANCOMYCIN TROUGH ONE (15:30)
--- NOTE | 2018-10-01 16:18 | Hospitalist Progress Note ---
Date of Service October 01, 2018 Assessment & Plan (1) Meningitis: Bacterial meningitis Afebrile, no leukocytosis Status post lumbar puncture on 09/29/2018WBC 8-10, glucose 22, total protein 146. Received IV vancomycin, IV Rocephin, IV ampicillin, IV acyclovir in ED. Continue with IV vancomycin, Rocephin, acyclovir, IV Ampicillin per ID - Day 2 IV normal saline at 125 cc/h--> OK to decrease to 75 cc/hour Pain control with IV Toradol as needed Infectious disease consulted. D/W ID- Needs 2 weeks of IV Rocephin but need to wait for 24 hours more to make sure not growing listeria History of heroin abuse -Last dose of heroin was April 2017 as per ER notes. Recently completed rehab for heroin abuse. -Per records, likely on Vivitrol injections to wean off of Suboxone DVT prophylaxis SCDs Full code Disposition Medical management in progress Per ID, IV Rocephin for 2 weeks. Need to wait for 1 more day to make sure not growing Listeria. Expected discharge home in stable Subjective Patient is doing well. Denies any headaches, fever, chills, nausea, vomiting, rash Eager to be discharged Physical Exam Physical Exam: GENERAL- AAOX3, No acute distress NECK- No neck stiffness LUNGS- Air entry bilaterally equal. No rales, rhonchi, crackles, wheezes heard. HEART- Regular rate and rhythm. No murmurs ABDOMEN- Soft, non tender, non distended, Bowel sounds heard. EXTREMITIES- Good peripheral pulses, no edema NEUROMUSCULAR- AAOX3, Grossly no focal deficits SKIN- No rashes Results & Data Vital Signs (Past 12 Hours) Vital Signs Temp Pulse Resp BP BP Pulse Ox 10/01/18 15:35 36.6 C 94 H 16 143/87 H 96 10/01/18 08:41 37.2 C 94 H 20 140/92 96 10/01/18 04:47 37.7 C H
--- NOTE | 2018-10-01 19:40 | Infectious Disease Progress Nt ---
Date of Service October 01, 2018 Assessment & Plan (1) Meningitis: Patient with acute meningitis, worrisome for bacterial infection given low blood sugar in CSF. Have added ampicillin to cover potential for Listeria infection. Await final culture results. Will follow. Subjective Patient is doing well. Denies any headaches, fever, chills, nausea, vomiting, rash Eager to be discharged Review of Systems Review of Systems: All systems reviewed & are unremarkable except as noted in HPI & below Physical Exam Constitutional: WD/WN, vitals as above comfortable; no acute distress Eyes: PERRL, conjunctivae normal, anicteric sclerae ENMT: external ear and nose normal, oropharynx normal Neck: trachea midline, no thyromegaly neck nontender Respiratory: normal respiratory effort, lungs clear to auscultation normal percussion; does not use accessory muscles Cardiovascular: Rate/Rhythm: regular rate and regular rhythm Heart Sounds: normal S1 and normal S2; no gallop, no murmur and no cardiac rub Vessels: normal peripheral pulses; no JVD Gastrointestinal (Abdomen): normal bowel sounds, soft, nontender, no hepatosplenomegaly Musculoskeletal: no cyanosis or clubbing, extremities motor strength 5/5 Spine: thoracic spine normal to inspection and lumbar spine normal to inspection; no cervical spinal tenderness Skin: no rashes, warm and dry normal turgor; no lesions Neurologic: patellar DTR's 2+ bilat, sensation intact no focal motor deficits Psychiatric: A+Ox3, euthymic affect Orientation: cooperative Lymphatic: no cervical or axillary lymphadenopathy no inguinal lymphadenopathy Results & Data Vital Signs (Past 12 Hours) Vital Signs Temp Pulse Resp BP BP Pulse Ox 10/01/18 15:35 36.6 C 94 H 16 143/87 H 96 10/01/18 08:41 37.2 C 94 H 20 140/92 96 Laboratory Results Short CBC 10/01/18 Range/Units 07:25 WBC 11.74 H (4.8-10.8) K/uL Hgb 14.3 (14.0-18.0) g/dL Hct 41.9 L (42-52) % Plt Count 224 (130-400) K/uL BMP 10/01/18 07:25 Sodium 136 Potassium 3.6 Chloride 101 Carbon Dioxide 29 BUN 12 D Creatinine 1.06 Glucose 93 Calcium 9.1 Diagnostic Findings Microbiology 09/29/18 18:45 Cerebral Spinal Fluid Gram Stain - Final 09/29/18 18:45 Cerebral Spinal Fluid CSF Culture - Final No growth
[2018-10-01] MEDS: VANCOMYCIN HCL 1,000 MG in SODIUM CHLORIDE 0.9% 250 ML IV SCH (22:19)
[2018-10-02] MEDS: KETOROLAC 30 MG/ML VIAL IV PRN ×3 (01:02→15:02)
[2018-10-02] MEDS: VANCOMYCIN HCL 1,000 MG in SODIUM CHLORIDE 0.9% 250 ML IV SCH ×2 (03:33→10:19)
[2018-10-02] MEDS: AMPICILLIN 2,000 MG in SODIUM CHLOR 0.9% AD-VAN 100 ML IV SCH ×3 (03:33→11:56)
[2018-10-02] MEDS: ACYCLOVIR SOD 700 MG in DEXTROSE 5% 250 ML IV SCH ×2 (04:45→11:56)
[2018-10-02] MEDS: cefTRIAXone SODIUM 2,000 MG in DEXTROSE 5% 50 ML IV SCH (06:08)
[2018-10-02 08:27] LABS: Creatinine Clr Calc Pharmacy 105.5 ml/min; Est GFR (African American) 118.7; Est GFR (Non-African American) 102.4
[2018-10-02] MEDS: MULTIVITAMIN TAB PO SCH (08:56)
[2018-10-02] MEDS: NICOTINE 14 MG/24 HR PATCH TD SCH ×2 (08:56→11:36)
[2018-10-02] MEDS: SODIUM CHLORIDE 0.9% 1000ML 1,000 ML IV SCH (11:56)
[2018-10-02] MEDS: ACETAMINOPHEN 325 MG TAB PO PRN (13:51)
--- NOTE | 2018-10-02 14:41 | Hospitalist Progress Note ---
Date of Service October 02, 2018 Assessment & Plan (1) Meningitis: Meningitis--Likely due to Lyme's Meningitis CT head: No acute intracranial findings S/P lumbar puncture on 09/29/2018WBC 8-10, glucose 22, total protein 146 CSF Culture: No growth Received IV vancomycin, IV Rocephin, IV ampicillin, IV acyclovir Day #3 Also received IV fluids Plan to discharge on IV Rocephin 2 g daily for a total of 14 days as per infectious disease Appreciate ID input H/O heroin abuse Last dose of heroin was April 2017 as per ER notes. Recently completed rehab for heroin abuse. Per records, likely on Vivitrol injections to wean off of Suboxone DVT Px: SCDs Encourage to ambulate Code Status Full code Disposition Plan to discharge home today Plans to get Abx with [facility] daily to complete the course Case management on board Subjective Patient is seen and examined at bedside Doing well today States having minimal headache this morning which improved Offers no other complaints Denies any chest pain, shortness of breath, dizziness, nausea, abdominal pain, change in vision Discussed with infectious disease Dr. Jones today--plan to discharge on IV Rocephin 2 g daily for total of 2 weeks Review of Systems Review of Systems: All systems reviewed & are unremarkable except as noted in HPI & below Physical Exam Physical Exam: Physical Exam: Vitals signs as noted above General Appearance:Moderately built and nourished, no apparent distress Head: normocephalic, Atraumatic Eyes: normal inspection, EOMI Neck: supple, Trachea midline Respiratory/Chest: Normal breath sounds, CTA Cardiovascular: S1, S2, No murmur Abdomen/GI:Soft, Non tender, Bowel sounds present Extremities/Musculoskelatal:normal inspection, no edema Neurologic/Psych:AAOX3, grossly no focal neurological deficits Skin: normal color, warm Results & Data Vital Signs (Past 12 Hours) Vital Signs Temp Pulse Resp BP Pulse Ox 10/02/18 07:58 36.3 C L 77 19 156/93 H 94 Laboratory Results BMP 10/02/18 07:34 Creatinine 0.94
--- NOTE | 2018-10-02 14:45 | Discharge Summary ---
Date of Service October 02, 2018 Admission HPI Per Admitting Provider DATE OF ADMISSION: 09/29/2018 CHIEF COMPLAINT: Severe headache. HISTORY OF PRESENT ILLNESS: This is a 38-year-old male with past medical history significant for heroin abuse, history of migraines, who presented with severe headaches and lumbar puncture done in the ER shows meningitis with CSF WBC of 810, glucose of 22, and total protein of 146.7. Prior to the procedure, he was given Ativan and Benadryl. The patient is currently very drowsy . Constantly have to wake him up to ask questions.He says the headache is better now. Denies any neck pain. Denies any chest pain or shortness of breath. Denies any nausea, denies any abdominal pain. He has normal bowel and bladder movements. His mother left home, tried to follow his mother, but she is not back at home. The patient is currently sedated. Apparently, the patient was here in the hospital on 09/24/2018 with severe headaches, evidence of mild photophobia. And was advised to come back if symptoms worsen. There is question of using monthly Vivitrol injections to wean off of Suboxone that he is currently on and he recently completed rehab for heroin addiction, his last use of heroin was 04/2017 as per the ER notes.Mother called later and says patient was having severe headaches since last couple of weeks and was having neck stiffness and fevers at home and that's the reason he came to ER. She says patient is not currently taking any drugs. Admission Exam Per Admitting Provider PHYSICAL EXAMINATION: GENERAL: The patient is drowsy, does not seem to be in acute distress. VITAL SIGNS: Temperature 39, pulse 86, respiratory rate 18, blood pressure 130/84, oxygen saturation 95% on room air. HEENT: No pallor, no icterus. Pupils equal, round, reactive to light. NECK: No JVD, no neck masses. Supple. CARDIOVASCULAR: S1, S2 heard, regular rate and rhythm, no murmur, no gallop. RESPIRATORY SYSTEM: Normal AP diameter. No accessory muscle use. No wheezing, no crackles. ABDOMEN: Soft, bowel sounds present, nontender. No distention. CENTRAL NERVOUS SYSTEM: The patient is currently drowsy. Have to wake up constantly and answers appropriately. Moves extremities. EXTREMITIES: No edema, no erythema seen. Principal Diagnosis Discharge Information Discharge Diagnosis Meningitis Discharge Goals Decrease discomfort,Improve disease control, Improve function Discharge Activity Limitations Per instructions/follow-uP Discharge Data Allergies Allergy/AdvReac Type Severity Reaction Status Date / Time No Known Allergies Allergy Unverified 09/29/18 17:02 Consultations 09/29/18 19:58 ED Decision to Admit Stat 09/30/18 08:00 Consult Infectious Diseases Routine Procedures Performed ct hEAD: No acute intracranial findings cxr: No active disease in the chest. Ordered Studies 09/29/18 17:04 CT head/brain wo con Stat Hospital Course (1) Meningitis: Meningitis--Likely due to Lyme's Meningitis CT head: No acute intracranial findings S/P lumbar puncture on 09/29/2018WBC 8-10, glucose 22, total protein 146 CSF Culture: No growth Received IV vancomycin, IV Rocephin, IV ampicillin, IV acyclovir Day #3 Also received IV fluids Plan to discharge on IV Rocephin 2 g daily for a total of 14 days as per infectious disease Appreciate ID input H/O heroin abuse Last dose of heroin was April 2017 as per ER notes. Recently completed rehab for heroin abuse. Per records, likely on Vivitrol injections to wean off of Suboxone DVT Px: SCDs Encourage to ambulate Code Status Full code Disposition Plan to discharge home today Plans to get Abx with [facility] daily to complete the course Case management on board Total Time Total Time Spent Total Time Spent (In Minutes): 40 MINUTES Total Time Includes: Examination of the Patient, Discharge Planning, Medication Reconciliation, Communication With Other Providers and Other Discharge Plan Discharge Items Patient Disposition: Home - Self-Care Reason For Visit: HEADACHE Discharge Diagnosis: Meningitis Discharge Goals: Decrease discomfort, Improve disease control and Improve function Activity: Per 'Additional Instructions' section Exercise/Sports: Gradually increase as tolerated Non-emergency contact: Primary Care Provider Call non-emergency contact if: you have any medication questions, your symptoms worsen, your pain is not controlled, your pain is worsening, your pain is unusual for you, your pain is concerning for you and you have a fever Follow-up/Referrals: Josiane Obrien DO [Primary Care Provider] - Diet: Regular Addtl Provider Instructions: Follow-up with your primary care physician on Oct 07, 2018 at 12:45pm Complete the antibiotic course as advised by your infectious disease Dr. Jones Your serological work-up is pending at the time of discharge. Follow-up with your primary care physician for results. Seek immediate medical attention if your symptoms reoccur or worsen Prescriptions: New ceftriaxone 2 gram recon soln 2 gm IV DAILY Qty: 11 RF: 0 Continued multivitamin Tablet 1 tab PO QAM RF: 0 Excedrin Migraine 250-250-65 mg Tablet 3 - 4 tab PO Q6H PRN (Reason: Headache) RF: 0 Stand-Alone Forms: [facility] Discharge Orders: Discharge Order (Routine); Ordered 10/02/18 Ordered By: Darrius Palafox Admission Data Admit Date/Time: 09/29/18 20:36 Attending Provider: Darrius Palafox Admit Provider: Son Purvis Primary Care Provider: Josiane Obrien Other Providers: Son Purvis ; Pb Jones ; Peg Zendejas Service: Medical Other Interventions: Discharge Summary Assessment (RN) Last Done: 10/02/18 15:07 Pending Studies at Discharge: Yes Studies:: Serological Work Up DC Date/Time DO NOT enter until pt leaves facility: 10/02/18 15:30
[2018-10-02] MEDS ORDERED: VANCOMYCIN TROUGH ONE (15:30)
[2018-10-03 01:42] LABS: Lyme DNA PCR CSF or Synovial Not detected (Not Detected); Lyme DNA Source CSF
[2018-10-06 10:25] LABS: 18KDIGG Band REACTIVE (NONREACTIVE); 23KDIGG Band NONREACTIVE (NONREACTIVE); 23KDIGM Band REACTIVE (NONREACTIVE); 28KDIGG Band REACTIVE (NONREACTIVE); 30KDIGG Band REACTIVE (NONREACTIVE); 39KDIGG Band REACTIVE (NONREACTIVE); 39KDIGM Band NONREACTIVE (NONREACTIVE); 41KDIGG Band NONREACTIVE (NONREACTIVE); 41KDIGM Band NONREACTIVE (NONREACTIVE); 45KDIGG Band REACTIVE (NONREACTIVE); 58KDIGG Band REACTIVE (NONREACTIVE); 66KDIGG Band REACTIVE (NONREACTIVE); 93KDIGG Band NONREACTIVE (NONREACTIVE); Lyme Antibodies, WB IgG POSITIVE (NEGATIVE); Lyme Antibodies, WB IgM NEGATIVE (NEGATIVE)
== END 2018-10-02 15:30 | disposition home or self-care (01) | DRG 869 ==
LOC: ED 15:35 → SUATTDRO 20:36 → 2E 21:10 → 3W 09-30 13:28

== ENCOUNTER 2018-12-31 13:01 | Inpatient (IN) ==
[2018-12-31] MEDS ORDERED: SODIUM CHLORIDE 0.9% 1000ML 500 ML IV ONE ×2 (14:01→16:46)
[2018-12-31] MEDS ORDERED: LORazepam 2 MG/4 ML VIAL IV STA (14:08)
--- NOTE | 2018-12-31 14:30 | Emergency Department Note ---
Entered by Adair Garcia acting as a scribe for History of Present Illness General Chief complaint: Fever Stated complaint: FEVER, DR REF Time Seen by Provider: 12/31/18 13:52 Source: patient History of Present Illness Provider complaint: Fevers Onset (ago): day(s) 1 Location: abdomen Pain Consistency: + constant and + intermittent Maximum Pain Intensity: 5 Current Pain Intensity: 5 Associated symptoms: + denies other symptoms (Diarrhea, Urinary symptoms), + fever/chills, + headaches, + nausea/vomiting and + other (Congestion) The patient is a 38 year old male who presents to the Emergency Room with complaints of intermittent fevers that started last night. The patient states that last night his fever reached 101.4F and this morning it was 100.5F. The patient reports that he has been fighting a cold and congestion for the past week but has otherwise been healthy. He adds that last night he became nauseous and vomited as well. The patient mentioned that in August he was diagnosed with viral meningitis and since then has had headaches. From the meningitis, the patient developed a brain abscess that was diagnosed here on 12/03. The patient presented that day with fevers and a headache so when he developed fevers yesterday his doctor told him to come to the ED for brain imaging. The patient also mentioned that he has a PICC line in place which he uses for at home IV antibiotics (Vancomycin), which he is due for at 14:00. The patient denies any urinary symptoms, or diarrhea. Home Medications Home Medications Medication Instructions Recorded Confirmed Type lactobacillus combination no.4 0 mmu cells PO DAILY 12/31/18 12/31/18 History [Probiotic] levetiracetam 500 mg PO BID 12/31/18 12/31/18 History metronidazole [Flagyl] 0 mg PO TID 12/31/18 12/31/18 History multivitamin 1 tab PO DAILY 12/31/18 12/31/18 History vancomycin 0 mg IV DIRECTED 12/31/18 12/31/18 History Allergies Allergy/AdvReac Type Severity Reaction Status Date / Time No Known Allergies Allergy Verified 12/31/18 16:35 Past Med/Surg History Medical History Meningitis (Acute) Abscess of forearm, left (Acute) Apnea (Acute) Heroin overdose (Acute) Low back pain (Acute) Hydrocephalus (Inactive) Hypokalemia (Inactive) Syncope (Inactive) Apnea History of heroin use Surgical History No pertinent past surgical history Family History Other No significant family history Social History Preferred Language: Malay Communication Ability: Effective Advertisement Compositor Required: No Beliefs That Will Affect Care: None marital status: Single Current Living Situation: Family Feels Safe at Home: Yes Smoking Status: Current every day smoker Tobacco Type: cigarettes ; Second Hand Exposure: No ; Hx Alcohol Use: No Hx Substance Use: No Review of Systems See HPI for pertinent positives & negatives. and A total of 10 systems reviewed and were otherwise negative Physical Exam Vital Signs Vital Signs - 24 hr 12/31/18 13:03 12/31/18 14:36 12/31/18 15:46 Temperature 36.8 C Temperature Source Oral Sepsis Recent Fever Within 48 Hours Yes Sepsis New/Unexplained Change in Mental Status No Sepsis Action Taken by Nursing No Action Required Pulse Rate 101 H 99 H Pulse Rate [Finger] 111 H Respiratory Rate 18 20 17 Respiratory Depth Normal Blood Pressure 146/106 H Blood Pressure [Right Arm] 161/107 H Blood Pressure Mean 119 Blood Pressure Mean [Right Arm] 125 Pulse Oximetry 96 96 97 Oxygen Delivery Method Room Air Room Air Room Air 12/31/18 15:49 Temperature 39.0 C H Temperature Source Oral Sepsis Recent Fever Within 48 Hours Sepsis New/Unexplained Change in Mental Status Sepsis Action Taken by Nursing Pulse Rate Pulse Rate [Finger] Respiratory Rate Respiratory Depth Blood Pressure Blood Pressure [Right Arm] Blood Pressure Mean Blood Pressure Mean [Right Arm] Pulse Oximetry Oxygen Delivery Method GENERAL: Patient is in no acute distress. HEENT: No acute trauma, normocephalic atraumatic, mucous membranes moist, no nasal congestion, no scleral icterus. No throat erythema or exudates. NECK: No stridor, no adenopathy, no meningismus, trachea is midline. LUNGS: Clear to auscultation bilaterally, no wheeze, no rhonchi, breath sounds equal. HEART: Without murmurs gallops or rubs, regular rate and rhythm. ABDOMEN: Soft, nontender, bowel sounds positive, no hernias, no peritonitis. EXTREMITIES: No cyanosis or edema, full range of motion of all the joints without pain or difficulty, no signs for acute trauma. NEUROLOGIC: Oriented x 3, no acute motor or sensory deficits, no focal weakness. Slight extremity tremor noted. SKIN: No rash, no jaundice, no diaphoresis. Course 1356: Past medical records reviewed. The patient was evaluated in room A03, and a complete history and physical examination were performed. I reviewed the patient's EMR which showed he was seen here on 12/03 for a fever and headache. He was transferred to [facility] at this time for further treatment. The patient was recently diagnosed with a brain abscess and is receiving treatment. The patient does have a history of medical noncompliance. 1616: I reevaluated the patient and he appears well however his temperature is now 103F. 1623: I spoke to Dr. Lora - Infectious Disease [facility]icky about the patient's case. He recommended having the patient stay in the hospital given his complicated story. He also suggested potentially changing his PICC line as he might have an infection of the line. 1629: I reassessed the patient and updated him. We discussed the treatment plan and he is agreeable. 1633: I spoke to Ana Rosa Mahmood - [facility] PAC under Dr. Modesto sen, about the patient's case. They are going to accept the patient for further evaluation. Consultations Consultation #1: I spoke to Dr. Lora - Infectious Disease [facility]icky about the patient's case. He recommended having the patient stay in the hospital given his complicated story. He also suggested potentially changing his PICC line as he might have an infection of the line. Time: 16:23 Consultation #2: I spoke to Ana Rosa Mahmood - [facility] under Dr. Modesto sen, about the patient's case. They are going to accept the patient for further evaluation. Time: 16:33 Administered Medications Gadobutrol (Gadavist 65ml) 6.5 ml IV ONCE PRN PRN Reason: Interaction Checking Stop: 01/04/19 15:40 Last Admin: 12/31/18 15:41 Dose: 6.5 ml Documented by: [id number] Discontinued Medications Acetaminophen (Tylenol) 1,000 mg PO NOW STA Stop: 12/31/18 16:13 Last Admin: 12/31/18 16:18 Dose: 1,000 mg Documented by: [id number] Sodium Chloride (Nss 1000ml) 500 mls @ 999 mls/hr IV .Q31M ONE Stop: 12/31/18 14:31 Last Infusion: 12/31/18 16:05 Dose: 0 mls/hr Documented by: [id number] Admin: 12/31/18 14:28 Dose: 999 mls/hr Documented by: [id number] Lorazepam (Ativan) 2 mg in 4 mls @ 4 mls/min IV NOW STA Stop: 12/31/18 14:09 Last Admin: 12/31/18 14:25 Dose: 4 mls/min Documented by: [id number] Medical Decision Making Differential Diagnosis Differential Diagnosis includes: Influenza, viral illness, pneumonia, UTI, failed outpatient treatment, cellulitis, and pharyngitis, amongst others. Medical Records Attestation: I reviewed the patient's medical records. Home Medications Current Medication List: was personally reviewed by me Laboratory Data Attestation: I reviewed the patient's lab results. Result diagrams: 12/31/18 14:06 12/31/18 14:06 Lab Results 12/31/18 12/31/18 12/31/18 Range/Units 14:06 14:06 14:06 WBC 6.43 (4.8-10.8) K/uL RBC 3.74 L (4.7-6.1) M/uL Hgb 13.0 L (14.0-18.0) g/dL Hct 37.7 L (42-52) % MCV 100.8 H (80-100) fL MCH 34.8 H (25-34) pg MCHC 34.5 (32-36) g/dL RDW Std Deviation 47.6 H (36.4-46.3) fL RDW Coeff of Giuliana 13.0 (11.5-14.5) % Plt Count 239 (130-400) K/uL MPV 9.7 (7.4-10.4) fL Immature Gran % (Auto) 1.6 % Neut % (Auto) 60.0 % Lymph % (Auto) 21.6 % Jackson % (Auto) 15.1 % Eos % (Auto) 0.6 % Baso % (Auto) 1.1 % Immature Gran # (Auto) 0.10 H (0.00-0.02) K/uL Neut # (Auto) 3.86 (1.4-6.5) K/uL Lymph # (Auto) 1.39 (1.2-3.4) K/uL Jackson # (Auto) 0.97 H (0.11-0.59) K/uL Eos # (Auto) 0.04 (0-0.5) K/uL Baso # (Auto) 0.07 (0-0.2) K/uL Sodium 139 (136-145) mmol/L Potassium 3.5 (3.5-5.1) mmol/L Chloride 100 (98-107) mmol/L Carbon Dioxide 32 (21-32) mmol/L Anion Gap 7.0 (3-11) BUN 9 (7-18) mg/dl Creatinine 1.03 (0.6-1.4) mg/dl Est Cr Clr Drug Dosing 94.5 ml/min Est GFR ( Amer) 106.3 Est GFR (Non-Af Amer) 91.7 BUN/Creatinine Ratio 8.4 L (10-20) Glucose 119 H (70-99) mg/dl Lactate (0.4-2.0) mmol/L Calcium 9.1 (8.5-10.1) mg/dl Total Bilirubin 0.3 (0.2-1) mg/dl AST 14 L (15-37) U/L ALT 20 (12-78) U/L Alkaline Phosphatase 62 (45-117) U/L Total Protein 7.5 (6.4-8.2) gm/dl Albumin 3.7 (3.4-5.0) gm/dl Globulin 3.8 (2.5-4.0) gm/dl Albumin/Globulin Ratio 1.0 (0.9-2) Procalcitonin (0-0.5) ng/ml Urine Color Urine Appearance (Clear) Urine pH (4.5-7.5) Ur Specific [place] (1.000-1.030) Urine Protein (Negative) Urine Glucose (UA) (Negative) Urine Ketones (Negative) Urine Blood (Negative) Urine Nitrite (Negative) Urine Bilirubin (Negative) Urine Urobilinogen (Negative) Ur Leukocyte Esterase (Negative) Influenza Type A Ag Neg for Influ A (Neg) Influenza Type B Ag Neg for Influ B (Neg) 12/31/18 12/31/18 12/31/18 Range/Units 14:25 14:26 Unknown WBC (4.8-10.8) K/uL RBC (4.7-6.1) M/uL Hgb (14.0-18.0) g/dL Hct (42-52) % MCV (80-100) fL MCH (25-34) pg MCHC (32-36) g/dL RDW Std Deviation (36.4-46.3) fL RDW Coeff of Giuliana (11.5-14.5) % Plt Count (130-400) K/uL MPV (7.4-10.4) fL Immature Gran % (Auto) % Neut % (Auto) % Lymph % (Auto) % Jackson % (Auto) % Eos % (Auto) % Baso % (Auto) % Immature Gran # (Auto) (0.00-0.02) K/uL Neut # (Auto) (1.4-6.5) K/uL Lymph # (Auto) (1.2-3.4) K/uL Jackson # (Auto) (0.11-0.59) K/uL Eos # (Auto) (0-0.5) K/uL Baso # (Auto) (0-0.2) K/uL Sodium (136-145) mmol/L Potassium (3.5-5.1) mmol/L Chloride (98-107) mmol/L Carbon Dioxide (21-32) mmol/L Anion Gap (3-11) BUN (7-18) mg/dl Creatinine (0.6-1.4) mg/dl Est Cr Clr Drug Dosing ml/min Est GFR ( Amer) Est GFR (Non-Af Amer) BUN/Creatinine Ratio (10-20) Glucose (70-99) mg/dl Lactate 1.2 (0.4-2.0) mmol/L Calcium (8.5-10.1) mg/dl Total Bilirubin (0.2-1) mg/dl AST (15-37) U/L ALT (12-78) U/L Alkaline Phosphatase (45-117) U/L Total Protein (6.4-8.2) gm/dl Albumin (3.4-5.0) gm/dl Globulin (2.5-4.0) gm/dl Albumin/Globulin Ratio (0.9-2) Procalcitonin < 0.05 (0-0.5) ng/ml Urine Color Yellow Urine Appearance Clear (Clear) Urine pH 7.0 (4.5-7.5) Ur Specific [place] 1.015 (1.000-1.030) Urine Protein Negative (Negative) Urine Glucose (UA) Negative (Negative) Urine Ketones Negative (Negative) Urine Blood Negative (Negative) Urine Nitrite Negative (Negative) Urine Bilirubin Negative (Negative) Urine Urobilinogen Negative (Negative) Ur Leukocyte Esterase Negative (Negative) Influenza Type A Ag (Neg) Influenza Type B Ag (Neg) Imaging Data Radiologist's Impression: Radiology results as stated below per my review and the radiologist's interpretation: XR chest 1V portable HISTORY: 38 years-old Male Sepsis acute sepsis COMPARISON: Chest radiograph 09/29/2018 TECHNIQUE: Portable AP view of the chest FINDINGS: Cardiac mediastinal and hilar silhouettes are unchanged. Left-sided PICC is noted with distal tip terminating in the expected location of the inferior SVC. There is no pneumothorax, pleural effusion, focal airspace consolidation or overt pulmonary edema. Bones of the chest appear grossly intact. IMPRESSION: 1. No acute process. 2. Left-sided PICC distal tip terminates in the expected location of the i nferior SVC. The above report was generated using voice recognition software. It may contain grammatical, syntax or spelling errors. Electronically signed by: Mikal Emerson M.D. 12/31/2018 2:38 PM Brain MRI WITH AND WITHOUT CONTRAST HISTORY: Fever. history of brain abscess TECHNIQUE: Multiplanar multisequence MRI of the brain was performed both before and after the intravenous administration of contrast. COMPARISON STUDY: Head CT 12/2018. Outside hospital brain MRI report 12/09/2018. FINDINGS: Motion artifact results in suboptimal evaluation. No areas of restricted diffusion to suggest acute infarction. The major vascular flow voids at the skull base are well-maintained. Mild mucosal thickening within the right sphenoid sinus. No fluid levels within the paranasal sinuses. The mastoid air cells are clear. Stable mild hydrocephalus with associated T2 hyperintense periventricular signal abnormality. This suggests transependymal CSF flow. A few additional scattered punctate foci of T2 hyperintensity within the white matter of the supratentorial brain are also nonspecific but were described on the prior report. Mild prepontine and left tentorium dural enhancement is noted. No peripheral enhancing fluid collection at this time to suggest an abscess. In comparison to the prior report the enhancement pattern is stable to improved. IMPRESSION: 1. No intracranial abscess identified. 2. Stable to improved enhancement within the dura along the prepontine and left tentorium locations compared to the outside hospital MRI report.. 3. Stable mild hydrocephalus with associated mild transependymal CFS flow. Electronically signed by: Keyon Manzano M.D. 12/31/2018 4:07 PM Blood Pressure Blood Pressure Findings: Elevated blood pressure Blood Pressure Disposition: further management by hospitalist STORM Narrative There is no leukocytosis or concerning anemia. Patient has a normal platelet count. No significant electrolyte abnormality or kidney failure. Lactic acid level is not elevated making sepsis less likely. Procalcitonin is not elevated. There was no liver enzyme elevation. Urinalysis does not show infection. Flu testing was negative. Chest film does not show pneumonia or CHF. Brain MRI does not show any residual brain abscess. On my exam, there was no meningismus. There was no pharyngitis. The patient did not appear toxic. The patient did give himself his scheduled vancomycin. He had the medication with him. He received IV Ativan for sedation/anxiety in order to undergo his MRI. He was given IV saline. When his temperature spiked, he was given a dose of oral Tylenol. I spoke to the patient, I spoke with case management. I discussed the case with infectious disease at [facility] in [place]. The patient does deserve hospitalization. It was felt that he could stay at our hospital, transfer was not needed. The cause for the fever is unclear. The fever could be viral, he certainly could have a PICC line infection. Of note, a blood culture was drawn from the PICC line and then 1 peripheral. Another thought for the fever could be the antibiotic itself as his fever did spike when the vancomycin was infusing. The patient is currently resting comfortably. I discussed the case with the on- call hospitalist. Patient is aware of all his findings. Impression & Plan Fever, Brain abscess, History of meningitis Discharge Plan Visit Data Chief Complaint: Fever Stated Complaint: FEVER, DR REF ED Provider: Tyshawn Gordon Discharge Problem: Fever, Brain abscess, History of meningitis Patient Disposition: Being Evaluated by Hospitalist Forms Stand Alone Forms: My [facility] Prescriptions Prescriptions: No Action multivitamin Tablet 1 tab PO DAILY RF: 0 levetiracetam 500 mg Tablet 500 mg PO BID RF: 0 metronidazole [Flagyl] 250 mg Tablet PO TID RF: 0 Probiotic 3 billion cell Capsule PO DAILY RF: 0 vancomycin 250 mg Recon Soln IV DIRECTED RF: 0 Referrals Referrals: Josiane Obrien DO [Primary Care Provider] - Discharge Problem: Fever Qualifiers: Fever type: unspecified Qualified Code(s): R50.9 - Fever, unspecified The scribe's documentation has been prepared under my direction and personally reviewed by me in its entirety. I confirm that the note above accurately reflects all work, treatment, procedures, and medical decision making performed by me.
--- NOTE | 2018-12-31 14:39 | XRay Report ---
XR chest 1V portable HISTORY: 38 years-old Male Sepsis acute sepsis COMPARISON: Chest radiograph 09/29/2018 TECHNIQUE: Portable AP view of the chest FINDINGS: Cardiac mediastinal and hilar silhouettes are unchanged. Left-sided PICC is noted with distal tip ter minating in the expected location of the inferior SVC. There is no pneumothorax, pleural effusion, fo antonio airspace consolidation or overt pulmonary edema. Bones of the chest appear grossly intact. IMPRESSION: 1. No acute process. 2. Left-sided PICC distal tip terminates in the expected location of the inferior SVC. The above report was generated using voice recognition software. It may contain grammatical, syntax o r spelling errors. Electronically signed by: Mikal Emerson M.D. 12/31/2018 2:38 PM
[2018-12-31 14:41] LABS: Basophils # (auto) 0.07 K/uL (0-0.2); Basophils % (auto) 1.1 %; Eosinophils # (auto) 0.04 K/uL (0-0.5); Eosinophils % (auto) 0.6 %; Hematocrit (blood only) 37.7 % (42-52); Immature Granulocytes % (auto) 1.6 %; Lymphocytes # (auto) 1.39 K/uL (1.2-3.4); Lymphocytes % (auto) 21.6 %; Mean Corpuscular Hemoglobin 34.8 pg (25-34); Mean Corpuscular Hgb Conc 34.5 g/dL (32-36); Mean Corpuscular Volume 100.8 fL (80-100); Mean Platelet Volume 9.7 fL (7.4-10.4); Monocytes # (auto) 0.97 K/uL (0.11-0.59); Monocytes % (auto) 15.1 %; Neutrophils # (auto) 3.86 K/uL (1.4-6.5); Platelet Count 239 K/uL (130-400); RDW Standard Deviation 47.6 fL (36.4-46.3); Red Blood Count 3.74 M/uL (4.7-6.1); White Blood Count 6.43 K/uL (4.8-10.8)
[2018-12-31 14:44] LABS: Appearance Urine Clear (Clear); Bilirubin Urine Negative (Negative); Blood Urine Negative (Negative); Color Urine Yellow; Glucose Urine UA Negative (Negative); Ketones Urine Negative (Negative); Leukocyte Esterase Urine Negative (Negative); Nitrite Urine Negative (Negative); Protein Urine Negative (Negative); Specific Gravity Urine 1.015 (1.000-1.030); Urobilinogen Urine Negative (Negative)
[2018-12-31 15:00] LABS: Albumin Level 3.7 gm/dl (3.4-5.0); BUN Creatinine Ratio 8.4 (10-20); Calcium 9.1 mg/dl (8.5-10.1); Creatinine Clr Calc Pharmacy 94.5 ml/min; Est GFR (African American) 106.3; Est GFR (Non-African American) 91.7; Potassium 3.5 mmol/L (3.5-5.1)
[2018-12-31 15:02] LABS: Bilirubin,Total 0.3 mg/dl (0.2-1); Globulin 3.8 gm/dl (2.5-4.0); Total Protein 7.5 gm/dl (6.4-8.2)
[2018-12-31] MEDS ORDERED: GADOBUTROL 65ML VIAL IV PRN (15:41)
--- NOTE | 2018-12-31 16:08 | Magnetic Resonance Report ---
Brain MRI WITH AND WITHOUT CONTRAST HISTORY: Fever. history of brain abscess TECHNIQUE: Multiplanar multisequence MRI of the brain was performed both before and after the intrave nous administration of contrast. COMPARISON STUDY: Head CT 12/2018. Outside hospital brain MRI report 12/09/2018. FINDINGS: Motion artifact results in suboptimal evaluation. No areas of restricted diffusion to sugge st acute infarction. The major vascular flow voids at the skull base are well-maintained. Mild mucosa l thickening within the right sphenoid sinus. No fluid levels within the paranasal sinuses. The masto id air cells are clear. Stable mild hydrocephalus with associated T2 hyperintense periventricular sig nal abnormality. This suggests transependymal CSF flow. A few additional scattered punctate foci of T 2 hyperintensity within the white matter of the supratentorial brain are also nonspecific but were de scribed on the prior report. Mild prepontine and left tentorium dural enhancement is noted. No periph eral enhancing fluid collection at this time to suggest an abscess. In comparison to the prior report the enhancement pattern is stable to improved. IMPRESSION: 1. No intracranial abscess identified. 2. Stable to improved enhancement within the dura along the prepontine and left tentorium locations c ompared to the outside hospital MRI report.. 3. Stable mild hydrocephalus with associated mild transependymal CFS flow. Electronically signed by: Keyon Manzano M.D. 12/31/2018 4:07 PM
[2018-12-31] MEDS ORDERED: ACETAMINOPHEN 500 MG TAB PO STA (16:12)
[2018-12-31] MEDS ORDERED: SODIUM CHLORIDE 0.9% 1000ML 1,000 ML IV ONE (17:36)
--- NOTE | 2018-12-31 17:48 | History & Physical Report ---
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 Reported 12/05/2018 MRI brain without contrast showing worsening hydrocephalus, 12/09/2018 MRI C-spine with and without contrast showed improved but persistent leptomeningeal enhancement without any evidence of abscess. Had follow-up MRI brain with and without contrast on 12/09/2018 showing resolved abscess cavity with persistent but improving enhancement, stable mild to moderate hydrocephalus. Patient patient was started on IV vancomycin, IV Rocephin, Flagyl. Had LP demonstrating decrease in the CSF pleocytosis compared to prior CSF study, low glucose, elevated protein which is not secondary to being on intermittent antibiotics. No surgical intervention was recommended by neurosurgery. ID was on board and he was discharged home with PICC line and is on Rocephin 2 g IV twice daily, vancomycin every 8 hours, oral Flagyl 500 mg 3 times daily. Reported fever 101.4F yesterday. C/O rhinorrhea, nasal congestion, nonproductive cough past couple of days. Significant other with similar URI symptoms. In ER Initial temp 36.8C up to 39C. P: 101-111, R: 18, BP: 146/106, 161/107, 148/93, 96% on RA CXR:1. No acute process. 2. Left-sided PICC distal tip terminates in the expected location of the inferior SVC. BRAIN MRI: 1. No intracranial abscess identified. 2. Stable to improved enhancement within the dura along the prepontine and left tentorium locations compared to the outside hospital MRI report. 3. Stable mild hydrocephalus with associated mild transependymal CFS flow. WBC: 6.4, Lactate and Procalcitonin WNL. UA WNL. Negative influenza swab. ER Dr reports spoke to Dr Guido LOPEZ at [facility] who felt since MRI does not further show brain abscess pt doesn't need to be transferred and reports possible DDX include line infection vs viral etiology vs vancomycin Sepsis. Possible source: PICC line, unresolved/recurrent meningitis, viral etiology -In ER received 1L NSS, Tylenol -IVF -Blood culture from peripheral and PICC line pending -ESR, CRP pending -H/O echo 11/2018 at [facility] without suspected endocarditis. -Echo pending -Obtain peripheral access, will hold using PICC line -Consider removing PICC line -Will hold outpatient Rocephin, Flagyl, Vancomycin -Zosyn, Vancomycin -Continue Keppra -ID consult -Monitor CBC, BMP (5) History of heroin use: Denies recent IV drug use or recent drug use (6) Tobacco use: -Denies nicotine patch -Smoking cessation advised DVT Prophylaxis -SCDs Follows with Dr Josiane Obrien for routine care Pt was seen and care coordinated with Dr Salvador. See addendum History of Present Illness Chief Complaint: Fever Primary Care Provider: Josiane Obrien, Pt is 38 y/o M with PMH psoriasis, suspected Lyme meningitis in 09/2018, recent small brain abscess 12/2018 presented to ER with complaint of fever starting yesterday. Reported fever 101.4F last night. States vomited last night. Patient's reports he seemed more confused in the last 2 days. Patient with recent hospitalization at [facility] 12/04/2018-12/23/2018 for sepsis which was thought secondary to meningitis/brain abscess. Patient with history of several admissions and leaving hospital AMA for above. Reported 12/05/2018 MRI brain w ithout contrast showing worsening hydrocephalus, 12/09/2018 MRI C-spine with and without contrast showed improved but persistent leptomeningeal enhancement without any evidence of abscess. Had follow-up MRI brain with and without contrast on 12/09/2018 showing resolved abscess cavity with persistent but improving enhancement, stable mild to moderate hydrocephalus. Patient patient was started on IV vancomycin, IV Rocephin, Flagyl. Had LP demonstrating decrease in the CSF pleocytosis compared to prior CSF study, low glucose, elevated protein which is not secondary to being on intermittent antibiotics. No surgical intervention was recommended by neurosurgery. ID was on board and he was discharged home with PICC line and is on Rocephin 2 g IV twice daily, vancomycin every 8 hours, oral Flagyl 500 mg 3 times daily. Reports has been doing well at home until yesterday when developing fever. Patient reports has been having intermittent headaches for the past several months. Denies any current headache. Patient reports past couple of days has had slight rhinorrhea, nasal congestion and nonproductive cough. Reports significant other with similar symptoms which have since improved. Patient denies influenza vaccine this season. Patient with prior history of IV drug abuse however reports has not used for almost a year. Denies diarrhea, constipation, dizziness, syncope, vision changes, neck pain, CP, SOB, orthopnea, palpitations, hemoptysis, sore throat, choking, otalgia, sinus pain, abdominal pain, paresthesias, weakness, extremity weakness, extremity edema, new rashes, urinary symptoms. Allergies Allergy/AdvReac Type Severity Reaction Status Date / Time No Known Allergies Allergy Verified 12/31/18 16:35 Home Medications Home Medications Medication Instructions Recorded Confirmed Type ceftriaxone 2 g IV Q12H 12/31/18 12/31/18 History lactobacillus combination no.4 1 mmu cells PO BID 12/31/18 12/31/18 History [Probiotic] levetiracetam 500 mg PO BID 12/31/18 12/31/18 History metronidazole 500 mg PO TID 12/31/18 12/31/18 History multivitamin 1 tab PO DAILY 12/31/18 12/31/18 History vancomycin 1,000 mg IV Q8H 12/31/18 12/31/18 History Past Med/Surg History Medical History Tobacco use (Chronic) Psoriasis (Chronic) History of lumbar puncture (Chronic) 12/2018 - [facility] History of heroin use (Resolved) Meningitis (Acute) Abscess of forearm, left (Resolved) Heroin overdose (Resolved) Low back pain (Resolved) Brain abscess Hydrocephalus Hydrocephalus (Inactive) Hypokalemia (Inactive) Syncope (Inactive) Family History Other Diabetes Stroke Social History Preferred Language: Albanian Communication Ability: Effective Entry Level Finance Required: No Beliefs That Will Affect Care: None marital status: Single Current Living Situation: Parent Current Living Situation Comment: lives with mom Other Information That Helps Us Care for You: No Feels Safe at Home: Yes Safety Concerns: Feels Safe At This Time Smoking Status: Current every day smoker Tobacco Type: cigarettes ; Cigarettes Per Day: 12 ; Second Hand Exposure: No ; Hx Alcohol Use: No Hx Substance Use: Yes substance use type: heroin and opiates Substance Use Type Other:: states former user Review of Systems Review of Systems: All systems reviewed & are unremarkable except as noted in HPI & below Physical Exam Physical Exam: General: no distress, WDWN Head: normocephalic, atraumatic Eyes: PERRL, EOM's intact, conjunctiva non-injected, anicteric ENT: normal inspection external ears, nose, mucous membranes moist Neck: supple, trachea midline, non-tender, ROM intact, no rigidity Lungs: clear, no respiratory distress, no wheezing/rhonchi/rales CV: regular rhythm, tachycardia at 112, no murmur, no pretibial edema Abd: normal BS, soft, non-tender Ext: no cyanosis, no calf tenderness; ROM intact Neuro: A&O x 3, no focal deficits noted, normal affect Skin: warm, dry, +diffuse erythematous silver scaling plaques to face, neck back, torso, extremities, groin Results & Data Vital Signs (Past 12 Hours) Vital Signs Temp Pulse Pulse Resp BP BP Pulse Ox 12/31/18 17:28 38.3 C H 123 H 17 148/93 H 97 12/31/18 15:49 39.0 C H 12/31/18 15:46 111 H 17 161/107 H 97 12/31/18 14:36 99 H 20 96 12/31/18 13:03 36.8 C 101 H 18 146/106 H 96 Laboratory Results Short CBC 12/31/18 Range/Units 14:06 WBC 6.43 (4.8-10.8) K/uL Hgb 13.0 L (14.0-18.0) g/dL Hct 37.7 L (42-52) % Plt Count 239 (130-400) K/uL BMP 12/31/18 14:06 Sodium 139 Potassium 3.5 Chloride 100 Carbon Dioxide 32 BUN 9 Creatinine 1.03 Glucose 119 H Calcium 9.1 Liver Function 12/31/18 Range/Units 14:06 Total Bilirubin 0.3 (0.2-1) mg/dl AST 14 L (15-37) U/L ALT 20 (12-78) U/L Alkaline Phosphatase 62 (45-117) U/L Albumin 3.7 (3.4-5.0) gm/dl Urine 12/31/18 Range/Units Unknown Urine Color Yellow Urine Appearance Clear (Clear) Urine pH 7.0 (4.5-7.5) Ur Specific [place] 1.015 (1.000-1.030) Urine Protein Negative (Negative) Urine Glucose (UA) Negative (Negative) Diagnostic Findings CXR: IMPRESSION: 1. No acute process. 2. Left-sided PICC distal tip terminates in the expected location of the inferior SVC. BRAIN MRI: IMPRESSION: 1. No intracranial abscess identified. 2. Stable to improved enhancement within the dura along the prepontine and left tentorium locations compared to the outside hospital MRI report.. 3. Stable mild hydrocephalus with associated mild transependymal CFS flow. Code Status & VTE Plan VTE Prophylaxis Plan VTE Prophylaxis will be ordered: Yes Supervising Physician Co-Signing Physician Notes I have seen and examined the patient with physician instruction assistant principal and agree with the assessment and plan as above and would like to comment that On Exam: General: tire in appearance but answers to questions appropriately Neck: no neck rigidity or tenderness Lungs: clear to auscultation bilaterally Heart: tachycardic Abdomen: soft, nontender, positive bowel sounds Extremities: no edema Neurological: moves all extremities Skin: no ulcers That the patient Scotjanae Roa is a 38 year old male who was admitted to [facility] on September 29 2018 and discharged on October 02, 2018 with diagnosis at that time of Meningitis secondary to Lyme disease and at that point was supposed to complete a total of 14 days total of IV ceftriaxone. His medical course was complicated by multiple presentations for recurrent headaches to [facility] emergency room visits in November 2018 and multiple hospitalizations at [facility] in [place] during which patient also was noncompliant and left multiple times against medical advice. Patient was found to have brain abscess. Workup to rule out endocarditis was done but only partial reports of a Transthoracic echocardiogram on 11/26/18 are available on [facility] Further presentations to [facility] in December 2018 showed resolution of brain abscess MRI of the brain 12/09 1. Resolved abscess cavity with persistent but improving enhancement of the suprasellar, prepontine, left greater than right ambient cisterns, and along the left tentorium. 2. Stable [id number] hydrocephalus. MRI of the C-spine 12/09 1. Improved but persistent leptomeningeal enhancement. No evidence of abscess. 2. Additional stable chronic findings as detailed above Patient was recently discharge from [facility] in 12/22/18 with review of the progress notes that infectious Disease recommended continue IV vancomycin(12/04) and IV ceftriaxone( 12/04) and oral metronidazole(12/11) for 6 weeks and while there was concern of History of IV drug abuse (in rehab in 2018 for heroin and meth) that it should not be considered to be contraindicated for patient to be discharge with PICC line. Based on the 12/21/18 [facility] by Dr. Edison Velasquez progress notes on EPIC, it was written that the CSF studies were negative and there were recommendations against lumbar puncture due to risk of herniation. Patient was also to continue PO keppra 500mg BID presumably as a seizure prophylaxis Patient presents to [facility] on 12/31/18 with vomiting and fever and with tachycardia - likely in sepsis -12/31/18 brain MRI with no recurrent abscess -ED physician spoke to Dr. Lora - Infectious Disease [facility] about the patient's case -Patient has received 1 liter of IV fluids in the ED, will get 2nd liter of IV fluids, and then continue IV fluids as 100 cc/hr -increase the antibiotic coverage to be vancomycin and zosyn (in place of vancomycin/ceftriaxone/metronidazole) -follow blood culture from peripheral and PICC line -consider the possibility of PICC line infection. place oral communication to have IV peripheral access and avoid use of PICC line -since patient has PICC line for 2 weeks only and had previous failed PICC line placed in other arm, and taking into account that patient will still need terminal clerk IV anti-microbials, would hold off pulling out the PICC line for now unless patient's clinical symptoms worsen of with there are are positive PICC line blood cultures -will send fungal blood cultures -repeat echocardiogram ordered -ID consult requested -continue oral Keppra My colleague Dr. Julien will be taking the patient as consult service hospitalist starting on 01/01/19 (1) Fever Fever type: unspecified Qualified Code(s): R50.9 - Fever, unspecified
[2018-12-31] MEDS ORDERED: ACETAMINOPHEN 325 MG TAB PO PRN (19:09)
[2018-12-31] MEDS: SODIUM CHLORIDE 0.9% 1000ML 1,000 ML IV SCH (19:21)
[2018-12-31] MEDS ORDERED: PIPERACILLIN/TAZOBACTAM 4.5 GM in DEXTROSE 5% 100 ML IV ONE (19:45)
[2018-12-31] MEDS ORDERED: VANCOMYCIN CONSULT ACTIVE PRN (19:50)
[2018-12-31] MEDS ORDERED: PIPERACILL/TAZOBAC CONSULT ACTIVE PRN (19:50)
[2018-12-31] MEDS ORDERED: QUETIAPINE FUMARATE 25 MG TABLET PO SCH (21:00)
[2018-12-31] MEDS: levETIRAcetam 500 MG TAB PO SCH (21:06)
[2018-12-31] MEDS: IBUPROFEN 200 MG TAB PO PRN (21:11)
[2019-01-01] MEDS: VANCOMYCIN HCL 1,000 MG in SODIUM CHLORIDE 0.9% 250 ML IV SCH ×2 (01:01→07:57)
[2019-01-01] MEDS: PIPERACILLIN/TAZOBACTAM 3.375 GM in DEXTROSE 5% 100 ML IV SCH ×2 (02:00→10:06)
[2019-01-01] MEDS: SODIUM CHLORIDE 0.9% 1000ML 1,000 ML IV SCH (06:26)
[2019-01-01] MEDS ORDERED: VANCOMYCIN TROUGH ONE (07:30)
[2019-01-01] MEDS: levETIRAcetam 500 MG TAB PO SCH (07:58)
[2019-01-01] MEDS: IBUPROFEN 200 MG TAB PO PRN (07:58)
[2019-01-01] MEDS ORDERED: MULTIVITAMIN TAB PO SCH (09:00)
--- NOTE | 2019-01-01 10:46 | Infectious Disease Consult ---
Date of Consultation January 01, 2019 Assessment & Plan (1) Fever: 38-year-old male with recent diagnosis of brain abscess, now admitted with recurrent fevers without obvious localizing findings. Certainly PICC line infection a distinct possibility. Given his development of brain abscess, concerned about possibility of ongoing IV drug abuse, despite his denial. Pending further culture results, would continue broad-spectrum antibiotic therapy with vancomycin and Zosyn. Would consider obtaining drug screen. May need to obtain follow-up lumbar puncture which should be possible given no obvious large space-occupying lesion. Consider neurology consultation. Will follow. (2) Brain abscess: History of Present Illness Reason for Consultation: Recent brain abscess, fever Attending Physician: Miah Julien MD History of Present Illness 38-year-old male known to me from previous infectious disease consultation, with prior history of IV heroin abuse, denies over the past year, along with psoriasis, who was treated in September for possible Lyme meningitis with 2-week course of IV ceftriaxone. He had had lumbar puncture that was consistent with acute bacterial meningitis, but all cultures were negative at that time. Had several CT scans of the head in September and October which showed no evidence of acute intracranial abnormality. He will be presented in November and was found to be developing hydrocephalus, and apparently has had several admissions to the hospital and visits to the emergency room at [facility] in November and December, was diagnosed as having a brain abscess, and is currently being treated with combination of vancomycin, ceftriaxone, and metronidazole for a planned 6-week course of therapy. He was discharged for home antibiotics with a PICC line. He now presents with 1 to 2-day history of fever. Has had some persistent headaches, no worsening recently. Has some sinus congestion and cough, and several family members also ill with respiratory tract illness. Currently being treated with IV vancomycin and Zosyn. Repeat MRI scan of the brain shows no evidence of brain abscess, improvement in the leptomeningeal enhancement seen on previous MRIs. No worsening hydrocephalus. Allergies Allergy/AdvReac Type Severity Reaction Status Date / Time No Known Allergies Allergy Verified 12/31/18 16:35 Home Medications Home Medications Medication Instructions Recorded Confirmed Type ceftriaxone 2 g IV Q12H 12/31/18 12/31/18 History lactobacillus combination no.4 1 mmu cells PO BID 12/31/18 12/31/18 History [Probiotic] levetiracetam 500 mg PO BID 12/31/18 12/31/18 History metronidazole 500 mg PO TID 12/31/18 12/31/18 History multivitamin 1 tab PO DAILY 12/31/18 12/31/18 History vancomycin 1,000 mg IV Q8H 12/31/18 12/31/18 History Patient History Medical History Tobacco use (Chronic) Psoriasis (Chronic) History of lumbar puncture (Chronic) 12/2018 - [facility] History of heroin use (Resolved) Meningitis (Acute) Abscess of forearm, left (Resolved) Heroin overdose (Resolved) Low back pain (Resolved) Brain abscess Hydrocephalus Hydrocephalus (Inactive) Hypokalemia (Inactive) Syncope (Inactive) Family History Other Diabetes Stroke Social History Preferred Language: Telugu Communication Ability: Effective Sow Manager Required: No Beliefs That Will Affect Care: None marital status: Single Current Living Situation: Parent Current Living Situation Comment: lives with mom Other Information That Helps Us Care for You: No Feels Safe at Home: Yes Safety Concerns: Feels Safe At This Time Smoking Status: Current every day smoker Tobacco Type: cigarettes ; Cigarettes Per Day: 12 ; Second Hand Exposure: No ; Hx Alcohol Use: No Hx Substance Use: Yes substance use type: heroin and opiates Substance Use Type Other:: states former user Review of Systems Review of Systems: All systems reviewed & are unremarkable except as noted in HPI & below Physical Exam Constitutional: WD/WN, vitals as above comfortable; no acute distress Eyes: PERRL, conjunctivae normal, anicteric sclerae ENMT: external ear and nose normal, oropharynx normal Neck: trachea midline, no thyromegaly neck nontender Respiratory: normal respiratory effort, lungs clear to auscultation normal percussion; does not use accessory muscles Cardiovascular: Rate/Rhythm: regular rate and regular rhythm Heart Sounds: normal S1 and normal S2; no gallop, no murmur and no cardiac rub Vessels: normal peripheral pulses; no JVD Gastrointestinal (Abdomen): normal bowel sounds, soft, nontender, no hepatosplenomegaly Musculoskeletal: no cyanosis or clubbing, extremities motor strength 5/5 Spine: thoracic spine normal to inspection and lumbar spine normal to inspection; no cervical spinal tenderness Skin: no rashes, warm and dry normal turgor; no lesions Neurologic: patellar DTR's 2+ bilat, sensation intact no focal motor deficits Psychiatric: A+Ox3, euthymic affect Orientation: cooperative Lymphatic: no cervical or axillary lymphadenopathy no inguinal lymphadenopathy Results & Data Vital Signs (Past 12 Hours) Vital Signs Temp Pulse Pulse Resp BP BP Pulse Ox 01/01/19 07:39 37.3 C 96 H 20 165/103 H 174/109 H 97 01/01/19 04:56 37.3 C 97 H 20 148/87 H 96 01/01/19 01:35 98 H 01/01/19 00:26 38.3 C H 100 H 20 139/80 95 12/31/18 22:50 37.4 C Laboratory Results Short CBC 12/31/18 Range/Units 14:06 WBC 6.43 (4.8-10.8) K/uL Hgb 13.0 L (14.0-18.0) g/dL Hct 37.7 L (42-52) % Plt Count 239 (130-400) K/uL BMP 12/31/18 14:06 Sodium 139 Potassium 3.5 Chloride 100 Carbon Dioxide 32 BUN 9 Creatinine 1.03 Glucose 119 H Calcium 9.1 Liver Function 12/31/18 Range/Units 14:06 Total Bilirubin 0.3 (0.2-1) mg/dl AST 14 L (15-37) U/L ALT 20 (12-78) U/L Alkaline Phosphatase 62 (45-117) U/L Albumin 3.7 (3.4-5.0) gm/dl Urine 12/31/18 Range/Units Unknown Urine Color Yellow Urine Appearance Clear (Clear) Urine pH 7.0 (4.5-7.5) Ur Specific [place] 1.015 (1.000-1.030) Urine Protein Negative (Negative) Urine Glucose (UA) Negative (Negative) Diagnostic Findings Microbiology 12/31/18 19:34 Blood Fungal Smear - Final Brain MRI WITH AND WITHOUT CONTRAST HISTORY: Fever. history of brain abscess TECHNIQUE: Multiplanar multisequence MRI of the brain was performed both before and after the intravenous administration of contrast. COMPARISON STUDY: Head CT 12/2018. Outside hospital brain MRI report 12/09/2018. FINDINGS: Motion artifact results in suboptimal evaluation. No areas of restricted diffusion to suggest acute infarction. The major vascular flow voids at the skull base are well-maintained. Mild mucosal thickening within the right sphenoid sinus. No fluid levels within the paranasal sinuses. The mastoid air cells are clear. Stable mild hydrocephalus with associated T2 hyperintense periventricular signal abnormality. This suggests transependymal CSF flow. A few additional scattered punctate foci of T2 hyperintensity within the white matter of the supratentorial brain are also nonspecific but were described on the prior report. Mild prepontine and left tentorium dural enhancement is noted. No peripheral enhancing fluid collection at this time to suggest an abscess. In comparison to the prior report the enhancement pattern is stable to improved. IMPRESSION: 1. No intracranial abscess identified. 2. Stable to improved enhancement within the dura along the prepontine and left tentorium locations compared to the outside hospital MRI report.. 3. Stable mild hydrocephalus with associated mild transependymal CFS flow. Electronically signed by: Keyon Manzano M.D. 12/31/2018 4:07 PM PG Care Time/CCT Total # of Minutes Spent Total Time Spent with Patient: Total time spent is greater than 50% in coordination of care (as documented) at patient's floor/unit and/or counseling patient: (1) Fever Fever type: unspecified Qualified Code(s): R50.9 - Fever, unspecified
--- NOTE | 2019-01-01 13:51 | Communication Note ---
Date of Service: January 01, 2019 Admitted yesterday with fever. Patient opted to leave the hospital AMA this afternoon before he could be evaluated by the undersigned. Blood cultures negative at 24 hours. Will notify PCP of AMA departure and see if they can contact him and arrange for follow-up.
--- NOTE | 2019-01-03 09:15 | Discharge Summary ---
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 Reported fever 101.4F last night. States vomited last night. Patient's reports he seemed more confused in the last 2 days. Patient with recent hospitalization at [facility] 12/04/2018-12/23/2018 for sepsis which was thought secondary to meningitis/brain abscess. Patient with history of several admissions and leaving hospital AMA for above. Reported 12/05/2018 MRI brain without contrast showing worsening hydrocephalus, 12/09/2018 MRI C-spine with and without contrast showed improved but persistent leptomeningeal enhancement without any evidence of abscess. Had follow-up MRI brain with and without con trast on 12/09/2018 showing resolved abscess cavity with persistent but improving enhancement, stable mild to moderate hydrocephalus. Patient patient was started on IV vancomycin, IV Rocephin, Flagyl. Had LP demonstrating decrease in the CSF pleocytosis compared to prior CSF study, low glucose, elevated protein which is not secondary to being on intermittent antibiotics. No surgical intervention was recommended by neurosurgery. ID was on board and he was discharged home with PICC line and is on Rocephin 2 g IV twice daily, vancomycin every 8 hours, oral Flagyl 500 mg 3 times daily. Reports has been doing well at home until yesterday when developing fever. Patient reports has been having intermittent headaches for the past several months. Denies any current headache. Patient reports past couple of days has had slight rhinorrhea, nasal congestion and nonproductive cough. Reports significant other with similar symptoms which have since improved. Patient denies influenza vaccine this season. Patient with prior history of IV drug abuse however reports has not used for almost a year. Denies diarrhea, constipation, dizziness, syncope, vision changes, neck pain, CP, SOB, orthopnea, palpitations, hemoptysis, sore throat, choking, otalgia, sinus pain, abdominal pain, paresthesias, weakness, extremity weakness, extremity edema, new rashes, urinary symptoms. Principal Diagnosis fever Discharge Data Allergies Allergy/AdvReac Type Severity Reaction Status Date / Time No Known Allergies Allergy Verified 12/31/18 16:35 Consultations 12/31/18 16:37 ED Decision to Admit Stat 12/31/18 19:09 Consult Case Management - Discharge Planning Routine Consult Infectious Diseases Routine Ordered Studies 12/31/18 14:01 MR brain wo/w con Stat Hospital Course (1) Fever: As outlined in admission H&P, patient is a 38-year-old male with [employer] infection diagnosed in early December felt to be secondary to meningitis/brain abscess. Discharged with PICC line. Receiving intravenous ceftriaxone, intravenous vancomycin, and oral metronidazole as an outpatient. Presented to ED with fever. MRI did not show any intracranial abscess. Previously noted enhancement of dura was felt to be stable or improved. Hydrocephalus was felt to be mild and stable. There was concern about possible line infection. Blood cultures were obtained. ID was consulted. Echocardiogram did not show any apparent vegetations. Patient opted to leave the hospital against medical advice the afternoon of the second hospital day. Blood cultures remain negative at the time of this dictation. PCP was notified of the patient's hospitalization, discharge disposition, and need for follow-up. Total Time Total Time Spent Total Time Spent (In Minutes): 0 Discharge Plan Discharge Items Patient Disposition: Against Medical Advice Reason For Visit: FEVER Discharge Diagnosis: fever possible PICC infection recent brain abscess / meningitis Condition on Discharge: Good Activity: Resume your previous activity Non-emergency contact: Primary Care Provider and Specialist Call non-emergency contact if: you have any medication questions and your temperature is above 101 Follow-up/Referrals: Josiane Obrien DO [Primary Care Provider] - Diet: Regular Addtl Attending Provider Instructions: Patient left AMA before instructions could be offered. Pending Studies at Discharge: Yes (blood cultures) Stand-Alone Forms: My [facility] Hydra Dx, Smoking Cessation Medications and DC Order Prescriptions: Continued multivitamin Tablet 1 tab PO DAILY RF: 0 levetiracetam 500 mg Tablet 500 mg PO BID RF: 0 Probiotic 3 billion cell Capsule 1 mmu cells PO BID RF: 0 vancomycin 250 mg Recon Soln 1,000 mg IV Q8H RF: 0 ceftriaxone 2 gram Recon Soln 2 g IV Q12H RF: 0 metronidazole 500 mg Tablet 500 mg PO TID RF: 0 Discharge Orders: Left Against Medical Advice (Routine); Ordered 01/01/19 Ordered By: Miah Julien Admission Data Admit Date/Time: 12/31/18 17:36 Attending Provider: Miah Julienit Provider: Tay Salvador Primary Care Provider: Josiane Obrien Other Providers: Pb Jones ; Tay Salvador Other DC Date/Time DO NOT enter until pt leaves facility: 01/01/19 13:55
== END 2019-01-01 13:55 | disposition left against medical advice (07) | DRG 871 ==
LOC: ED 13:01 → SUATTDRO 17:36 → 2N 17:36

== ENCOUNTER 2019-08-24 14:19 | Inpatient (IN) ==
[2019-08-24] MEDS ORDERED: ONDANSETRON INJ 2 MG/ML 2 ML VIAL IV STA (15:55)
--- NOTE | 2019-08-24 16:34 | Emergency Department Note ---
History of Present Illness General Chief complaint: Cardiac Assessment Stated complaint: DR DIAGNOSED W/STROKE DAVIN HAVING PROBLEMS History of Present Illness This patient is a 39-year-old male who presents ambulatory to the emergency department complaining of altered mental status/confusion for the last several weeks. The patient has had decreased appetite. He also has had some vomiting. The history is somewhat limited as the patient is reluctant to answer questions. Most of the history is taken at the bedside by the patient's niece. He has had minimal bowel movements. No fever or chills. The patient was reportedly seen by his primary care physician earlier this week and diagnosed with a stroke. There were no recent changes in medications. Home Medications Home Medications Medication Instructions Recorded Confirmed Type levetiracetam [Keppra] 750 mg PO BID 03/02/19 08/24/19 History escitalopram oxalate 10 mg PO DIRECTED 08/24/19 08/24/19 History escitalopram oxalate 20 mg PO DIRECTED 08/24/19 08/24/19 History galcanezumab-gnlm [Emgality Pen] 120 mg SUBCUT MONTHLY 08/24/19 08/24/19 History multivitamin with minerals [Men's 1 tab PO DAILY 08/24/19 08/24/19 History One Daily] acyclovir [Zovirax] 1 applic EXT Q4H #15 g 08/28/19 Rx doxycycline hyclate 100 mg PO BID #28 cap 08/28/19 Rx valacyclovir 500 mg PO TID #10 tab 08/28/19 Rx Allergies Allergy/AdvReac Type Severity Reaction Status Date / Time Penicillins Allergy Unknown Unknown Verified 08/24/19 17:10 Past Med/Surg History Medical History Abscess of forearm, left (Inactive) Brain abscess (Inactive) Brain abscess Heroin overdose (Inactive) History of heroin use (Resolved) History of lumbar puncture (Chronic) 12/2018 - [facility] [place] History of meningitis (Inactive) History of opioid abuse Hydrocephalus (Inactive) Hydrocephalus Hypokalemia (Inactive) Low back pain (Inactive) Psoriasis (Chronic) Sepsis SIADH (syndrome of inappropriate ADH production) Syncope (Inactive) Tobacco use (Chronic) Surgical History No pertinent past surgical history Family History Other Diabetes Stroke Social History Preferred Language: Japanese Communication Ability: Effective Sash Sticker Required: No Beliefs That Will Affect Care: None marital status: Single Current Living Situation: Parent Current Living Situation Comment: lives with mother Other Information That Helps Us Care for You: No Feels Safe at Home: Yes Safety Concerns: Feels Safe At This Time Smoking Status: Current every day smoker Tobacco Type: cigarettes ; Cigarettes Per Day: 0.5 PPD ; Second Hand Exposure: No ; Hx Alcohol Use: No Hx Substance Use: Yes substance use type: heroin and opiates Substance Use Type Other:: states former user Last Used Substance: Unknown Review of Systems A total of 10 systems reviewed and were otherwise negative Physical Exam Vital Signs Vital Signs - 24 hr 08/24/19 14:29 Temperature 37.3 C Temperature Source Oral Pulse Rate 112 H Respiratory Rate 20 Respiratory Effort / Characteristics Non-Labored Spontaneous Respiratory Depth Normal Respiratory Pattern Regular Blood Pressure 151/117 H Blood Pressure Mean 128 Blood Pressure Position Sitting Pulse Oximetry 96 Oxygen Delivery Method Room Air Sepsis Recent Fever Within 48 Hours No Sepsis New/Unexplained Change in Mental Status No Sepsis Action Taken by Nursing No Action Required Constitutional WD/WN, vitals as above Exam is significantly limited as the patient is slightly lethargic and not foll owing commands. He is being uncooperative. Eyes EOM intact bilaterally ENMT Oral mucosa dry. White plaque noted on the tongue. Neck trachea midline Respiratory normal respiratory effort, lungs clear to auscultation Cardiovascular RRR, no murmur, no edema Gastrointestinal (Abdomen) normal bowel sounds, soft, nontender, no hepatosplenomegaly Musculoskeletal no cyanosis or clubbing, extremities motor strength 5/5 Skin no rashes, warm and dry Neurologic Alert and oriented x3. No focal motor deficits. Psychiatric Acting appropriately Course Course Patient was seen and examined Vital signs including blood pressure were reviewed medications list was verified with patient Labs were obtained, and a saline lock was established An order was placed for continuous cardiac monitoring. The monitor shows a rate of 100 with tachycardic sinus rhythm." Imaging performed and reviewed Medications ordered. Upon reevaluation, the patient was still feeling nauseated. We discussed his results. He voiced understanding, and was comfortable with the disposition. I spoke with the hospitalist, who kindly agreed to evaluate the patient for further work-up and likely inpatient management. Consultations Consultation #1: Hospitalist Administered Medications Acetaminophen (Tylenol) 500 mg PO Q4HWA [facility] Stop: 09/26/19 07:59 Last Admin: 08/31/19 10:51 Dose: 500 mg Documented by: [id number] Admin: 08/31/19 08:31 Dose: Not Given Documented by: [id number] Admin: 08/30/19 20:45 Dose: 500 mg Documented by: [id number] Admin: 08/30/19 18:00 Dose: 500 mg Documented by: [id number] Admin: 08/30/19 12:13 Dose: Not Given Documented by: [id number] Admin: 08/30/19 08:37 Dose: 500 mg Documented by: [id number] Admin: 08/29/19 22:03 Dose: 500 mg Documented by: [id number] Admin: 08/29/19 16:33 Dose: 500 mg Documented by: [id number] Admin: 08/29/19 12:45 Dose: 500 mg Documented by: [id number] Admin: 08/29/19 08:23 Dose: 500 mg Documented by: [id number] Admin: 08/28/19 21:22 Dose: 500 mg Documented by: [id number] Admin: 08/28/19 15:16 Dose: 500 mg Documented by: [id number] Admin: 08/28/19 12:16 Dose: 500 mg Documented by: [id number] Admin: 08/28/19 07:13 Dose: 500 mg Documented by: [id number] Admin: 08/27/19 21:11 Dose: 500 mg Documented by: [id number] Admin: 08/27/19 16:47 Dose: 500 mg Documented by: [id number] Admin: 08/27/19 11:52 Dose: Not Given Documented by: [id number] Admin: 08/27/19 10:21 Dose: 500 mg Documented by: [id number] Acyclovir (Zovirax 5%) 1 appln EXT Q4H [facility] Stop: 09/06/19 12:29 Last Admin: 08/31/19 13:04 Dose: 1 appln Documented by: [id number] Admin: 08/31/19 10:07 Dose: 1 appln Documented by: [id number] Admin: 08/31/19 04:10 Dose: Not Given Documented by: [id number] Admin: 08/31/19 01:37 Dose: 1 appln Documented by: [id number] Admin: 08/30/19 21:42 Dose: 1 appln Documented by: [id number] Admin: 08/30/19 19:15 Dose: 1 appln Documented by: [id number] Admin: 08/30/19 12:53 Dose: 1 appln Documented by: [id number] Admin: 08/30/19 08:39 Dose: 1 appln Documented by: [id number] Admin: 08/30/19 04:08 Dose: 1 appln Documented by: [id number] Admin: 08/30/19 00:15 Dose: 1 appln Documented by: [id number] Admin: 08/29/19 22:08 Dose: 1 appln Documented by: [id number] Admin: 08/29/19 16:34 Dose: 1 appln Documented by: [id number] Admin: 08/29/19 12:45 Dose: 1 appln Documented by: [id number] Admin: 08/29/19 08:26 Dose: 1 appln Documented by: [id number] Admin: 08/29/19 05:45 Dose: 1 appln Documented by: [id number] Admin: 08/29/19 00:30 Dose: 1 appln Documented by: [id number] Admin: 08/28/19 21:22 Dose: 1 appln Documented by: [id number] Admin: 08/28/19 15:17 Dose: 1 appln Documented by: [id number] Admin: 08/28/19 12:16 Dose: 1 appln Documented by: [id number] Admin: 08/28/19 07:12 Dose: 1 appln Documented by: [id number] Admin: 08/28/19 05:10 Dose: 1 appln Documented by: [id number] Admin: 08/28/19 00:51 Dose: 1 appln Documented by: [id number] Admin: 08/27/19 21:11 Dose: 1 appln Documented by: [id number] Admin: 08/27/19 16:48 Dose: 1 appln Documented by: [id number] Admin: 08/27/19 14:31 Dose: 1 appln Documented by: [id number] Clonidine HCl (Catapres) 0.1 mg PO Q8H PRN PRN Reason: Blood Pressure - High Stop: 09/29/19 16:33 Last Admin: 08/30/19 18:00 Dose: 0.1 mg Documented by: [id number] Diphenhydramine HCl (Benadryl) 25 mg IV Q8H PRN PRN Reason: Headache or Pain Stop: 09/26/19 07:29 Last Admin: 08/29/19 12:37 Dose: 25 mg Documented by: [id number] Heparin Sodium (Porcine) (Heparin Sodium (Porcine)) 5,000 units SQ Q8 I[facility] Stop: 09/30/19 13:59 Last Admin: 08/31/19 13:12 Dose: Not Given Documented by: Hydralazine HCl (Hydralazine Hcl) 10 mg IV Q6H PRN PRN Reason: hypertension Stop: 09/24/19 16:44 Last Admin: 08/29/19 08:43 Dose: 10 mg Documented by: [id number] Admin: 08/28/19 07:05 Dose: 10 mg Documented by: [id number] Admin: 08/27/19 18:24 Dose: 10 mg Documented by: [id number] Admin: 08/26/19 21:13 Dose: 10 mg Documented by: [id number] Admin: 08/26/19 12:04 Dose: 10 mg Documented by: [id number] Admin: 08/25/19 17:03 Dose: 10 mg Documented by: [id number] Potassium Chloride/Dextrose/Sod Cl (D5nss + 20meq Kcl) 20 meq in 1,000 mls @ 12 5 mls/hr IV .Q8H [facility] Stop: 09/24/19 13:44 Last Admin: 08/31/19 13:04 Dose: 125 mls/hr Documented by: [id number] Infusion: 08/31/19 13:04 Dose: 0 mls/hr Documented by: [id number] Admin: 08/31/19 07:28 Dose: Not Given Documented by: [id number] Infusion: 08/31/19 04:54 Dose: 0 mls/hr Documented by: [id number] Infusion: 08/31/19 04:10 Dose: 0 mls/hr Documented by: [id number] Infusion: 08/31/19 03:23 Dose: 125 mls/hr Documented by: [id number] Infusion: 08/31/19 01:33 Dose: 0 mls/hr Documented by: [id number] Admin: 08/31/19 01:32 Dose: 125 mls/hr Documented by: [id number] Infusion: 08/30/19 21:42 Dose: 125 mls/hr Documented by: [id number] Infusion: 08/30/19 14:24 Dose: 125 mls/hr Documented by: [id number] Infusion: 08/30/19 12:52 Dose: 0 mls/hr Documented by: [id number] Admin: 08/30/19 12:09 Dose: 125 mls/hr Documented by: [id number] Infusion: 08/30/19 12:07 Dose: 125 mls/hr Documented by: [id number] Admin: 08/30/19 04:07 Dose: 125 mls/hr Documented by: [id number] Infusion: 08/30/19 04:07 Dose: 125 mls/hr Documented by: [id number] Admin: 08/29/19 20:55 Dose: 125 mls/hr Documented by: [id number] Infusion: 08/29/19 18:51 Dose: 125 mls/hr Documented by: [id number] Admin: 08/29/19 10:51 Dose: 125 mls/hr Documented by: [id number] Infusion: 08/29/19 10:51 Dose: 125 mls/hr Documented by: [id number] Admin: 08/29/19 03:09 Dose: 125 mls/hr Documented by: [id number] Infusion: 08/29/19 03:09 Dose: 125 mls/hr Documented by: [id number] Admin: 08/28/19 19:44 Dose: 125 mls/hr Documented by: [id number] Infusion: 08/28/19 19:44 Dose: 125 mls/hr Documented by: [id number] Admin: 08/28/19 16:28 Dose: 125 mls/hr Documented by: [id number] Infusion: 08/28/19 16:27 Dose: 125 mls/hr Documented by: [id number] Admin: 08/28/19 09:19 Dose: 125 mls/hr Documented by: [id number] Infusion: 08/28/19 08:51 Dose: 0 mls/hr Documented by: [id number] Admin: 08/28/19 00:51 Dose: 125 mls/hr Documented by: [id number] Infusion: 08/28/19 00:36 Dose: 125 mls/hr Documented by: [id number] Admin: 08/27/19 16:36 Dose: 125 mls/hr Documented by: [id number] Infusion: 08/27/19 16:26 Dose: 125 mls/hr Documented by: [id number] Admin: 08/27/19 08:26 Dose: 125 mls/hr Documented by: [id number] Infusion: 08/27/19 08:20 Dose: 125 mls/hr Documented by: [id number] Admin: 08/27/19 00:20 Dose: 125 mls/hr Documented by: [id number] Infusion: 08/27/19 00:20 Dose: 125 mls/hr Documented by: [id number] Admin: 08/26/19 16:23 Dose: 125 mls/hr Documented by: [id number] Infusion: 08/26/19 16:21 Dose: 125 mls/hr Documented by: [id number] Admin: 08/26/19 08:21 Dose: 125 mls/hr Documented by: [id number] Infusion: 08/26/19 06:32 Dose: 125 mls/hr Documented by: [id number] Admin: 08/25/19 23:32 Dose: Not Given Documented by: [id number] Admin: 08/25/19 22:32 Dose: 125 mls/hr Documented by: [id number] Infusion: 08/25/19 22:32 Dose: 125 mls/hr Documented by: [id number] Admin: 08/25/19 14:32 Dose: 125 mls/hr Documented by: [id number] Pantoprazole Sodium 40 mg/ (Syringe) 10 mls @ 5 mls/min IV BID I[facility] Stop: 09/24/19 20:59 Last Admin: 08/31/19 10:53 Dose: 5 mls/min Documented by: [id number] Admin: 08/30/19 21:44 Dose: 5 mls/min Documented by: [id number] Admin: 08/30/19 10:45 Dose: 5 mls/min Documented by: [id number] Admin: 08/29/19 22:09 Dose: 5 mls/min Documented by: [id number] Admin: 08/29/19 08:43 Dose: 5 mls/min Documented by: [id number] Admin: 08/28/19 21:23 Dose: 5 mls/min Documented by: [id number] Admin: 08/28/19 09:28 Dose: 5 mls/min Documented by: [id number] Admin: 08/27/19 21:12 Dose: 5 mls/min Documented by: [id number] Admin: 08/27/19 08:25 Dose: 5 mls/min Documented by: [id number] Admin: 08/26/19 21:10 Dose: 5 mls/min Documented by: [id number] Admin: 08/26/19 08:30 Dose: 5 mls/min Documented by: [id number] Admin: 08/25/19 21:21 Dose: 5 mls/min Documented by: [id number] Promethazine HCl 6.25 mg/ (Sodium Chloride) 50.25 mls @ 201 mls/hr IV Q6H PRN PRN Reason: Headache or Pain Stop: 09/24/19 13:11 Last Infusion: 08/30/19 13:34 Dose: 0 mls/hr Documented by: [id number] Admin: 08/30/19 13:12 Dose: 201 mls/hr Documented by: [id number] Levetiracetam 750 mg/ Sodium (Chloride) 107.5 mls @ 440 mls/hr IV Q12H [facility] Stop: 09/30/19 07:59 Last Infusion: 08/31/19 08:31 Dose: 0 mls/hr Documented by: [id number] Admin: 08/31/19 07:28 Dose: 440 mls/hr Documented by: [id number] Ceftriaxone Sodium 2,000 mg/ (Dextrose) 70 mls @ 100 mls/hr IV Q12H [facility] Stop: 09/09/19 15:29 Last Infusion: 08/31/19 04:54 Dose: 0 mls/hr Documented by: [id number] Admin: 08/31/19 04:10 Dose: 100 mls/hr Documented by: [id number] Infusion: 08/30/19 20:37 Dose: 0 mls/hr Documented by: [id number] Admin: 08/30/19 19:41 Dose: 100 mls/hr Documented by: [id number] Vancomycin HCl 1,000 mg/ (Sodium Chloride) 270 mls @ 125 mls/hr IV Q8H [facility]; Protocol Stop: 09/10/19 00:00 Last Admin: 08/31/19 11:57 Dose: 125 mls/hr Documented by: [id number] Infusion: 08/31/19 01:29 Dose: 0 mls/hr Documented by: [id number] Admin: 08/30/19 22:57 Dose: 125 mls/hr Documented by: [id number] Doxycycline Hyclate 100 mg/ (Dextrose) 110 mls @ 50 mls/hr IV Q12H [facility] Stop: 09/09/19 19:59 Last Infusion: 08/31/19 13:03 Dose: 0 mls/hr Documented by: [id number] Admin: 08/31/19 11:01 Dose: 50 mls/hr Documented by: [id number] Infusion: 08/30/19 23:14 Dose: 0 mls/hr Documented by: [id number] Admin: 08/30/19 20:45 Dose: 50 mls/hr Documented by: [id number] Acyclovir Sodium 800 mg/ (Dextrose) 266 mls @ 250 mls/hr IV Q8H [facility] Stop: 09/09/19 17:29 Last Infusion: 08/31/19 13:03 Dose: 0 mls/hr Documented by: [id number] Admin: 08/31/19 11:58 Dose: 250 mls/hr Documented by: [id number] Infusion: 08/31/19 03:23 Dose: 0 mls/hr Documented by: [id number] Admin: 08/31/19 01:33 Dose: 250 mls/hr Documented by: [id number] Infusion: 08/30/19 20:37 Dose: 0 mls/hr Documented by: [id number] Admin: 08/30/19 19:15 Dose: 250 mls/hr Documented by: [id number] Ketorolac Tromethamine (Toradol) 30 mg IV Q8H PRN PRN Reason: Pain Stop: 09/01/19 07:26 Last Admin: 08/29/19 22:14 Dose: 30 mg Documented by: [id number] Admin: 08/29/19 08:43 Dose: 30 mg Documented by: [id number] Admin: 08/28/19 09:20 Dose: 30 mg Documented by: [id number] Admin: 08/27/19 21:14 Dose: 30 mg Documented by: [id number] Admin: 08/27/19 11:48 Dose: 30 mg Documented by: [id number] Metoclopramide HCl (Reglan) 10 mg IV Q8H PRN PRN Reason: Headache or Pain Stop: 09/26/19 07:29 Last Admin: 08/29/19 12:37 Dose: 10 mg Documented by: [id number] Admin: 08/27/19 18:25 Dose: 10 mg Documented by: [id number] Admin: 08/27/19 08:23 Dose: 10 mg Documented by: [id number] Multivitamins/Minerals (Multivitamin W/ Minerals Tab) 1 tab PO DAILY@1200 [facility] Stop: 09/24/19 11:59 Last Admin: 08/31/19 13:02 Dose: 1 tab Documented by: [id number] Admin: 08/30/19 12:13 Dose: Not Given Documented by: [id number] Admin: 08/29/19 12:45 Dose: 1 tab Documented by: [id number] Admin: 08/28/19 12:15 Dose: 1 tab Documented by: [id number] Admin: 08/27/19 11:51 Dose: 1 tab Documented by: [id number] Admin: 08/26/19 12:06 Dose: Not Given Documented by: [id number] Admin: 08/25/19 12:21 Dose: Not Given Documented by: [id number] Ondansetron HCl (Zofran) 4 mg IV Q6H PRN PRN Reason: Nausea Stop: 09/23/19 23:48 Last Admin: 08/30/19 10:45 Dose: 4 mg Documented by: [id number] Admin: 08/28/19 09:20 Dose: 4 mg Documented by: [id number] Admin: 08/27/19 21:15 Dose: 4 mg Documented by: [id number] Admin: 08/27/19 11:48 Dose: 4 mg Documented by: [id number] Admin: 08/25/19 12:20 Dose: 4 mg Documented by: [id number] Potassium Chloride (Klor-Con M20) 20 meq PO TID I[facility] Stop: 09/28/19 08:59 Last Admin: 08/31/19 13:04 Dose: 20 meq Documented by: [id number] Admin: 08/31/19 10:05 Dose: 20 meq Documented by: [id number] Admin: 08/30/19 20:44 Dose: 20 meq Documented by: [id number] Admin: 08/30/19 13:14 Dose: Not Given Documented by: [id number] Admin: 08/30/19 08:39 Dose: 20 meq Documented by: [id number] Admin: 08/29/19 22:05 Dose: 20 meq Documented by: [id number] Admin: 08/29/19 14:04 Dose: 20 meq Documented by: [id number] Admin: 08/29/19 09:30 Dose: 20 meq Documented by: [id number] Discontinued Medications Acetaminophen (Tylenol) 650 mg PO Q4H PRN PRN Reason: Pain or Fever Stop: 09/23/19 23:48 Last Admin: 08/26/19 21:38 Dose: 650 mg Documented by: [id number] Admin: 08/26/19 08:35 Dose: 650 mg Documented by: [id number] Admin: 08/25/19 05:59 Dose: 650 mg Documented by: [id number] Amlodipine Besylate (Norvasc) 5 mg PO ONE ONE Stop: 08/25/19 20:01 Last Admin: 08/25/19 20:08 Dose: 5 mg Documented by: [id number] Clonidine HCl (Catapres) 0.1 mg PO NOW ONE Stop: 08/27/19 20:23 Last Admin: 08/27/19 21:11 Dose: 0.1 mg Documented by: [id number] Clonidine HCl (Catapres) 0.1 mg PO NOW ONE Stop: 08/27/19 22:30 Last Admin: 08/27/19 23:04 Dose: 0.1 mg Documented by: [id number] Diphenhydramine HCl (Benadryl) 25 mg IV Q8H [facility] Stop: 09/26/19 07:29 Last Admin: 08/27/19 07:51 Dose: Not Given Documented by: [id number] Doxycycline Hyclate (Vibramycin) 100 mg PO BID [facility] Stop: 09/03/19 23:48 Last Admin: 08/30/19 08:38 Dose: 100 mg Documented by: [id number] Admin: 08/29/19 22:06 Dose: 100 mg Documented by: [id number] Admin: 08/29/19 08:25 Dose: 100 mg Documented by: [id number] Admin: 08/28/19 21:23 Dose: 100 mg Documented by: [id number] Admin: 08/28/19 09:29 Dose: 100 mg Documented by: [id number] Admin: 08/27/19 21:12 Dose: 100 mg Documented by: [id number] Admin: 08/27/19 10:21 Dose: 100 mg Documented by: [id number] Admin: 08/26/19 21:10 Dose: 100 mg Documented by: [id number] Admin: 08/26/19 08:23 Dose: 100 mg Documented by: [id number] Admin: 08/25/19 20:09 Dose: 100 mg Documented by: [id number] Admin: 08/25/19 09:13 Dose: 100 mg Documented by: [id number] Admin: 08/25/19 00:56 Dose: 100 mg Documented by: [id number] Enoxaparin Sodium (Lovenox) 40 mg SQ Q24H [facility] Stop: 09/24/19 08:59 Last Admin: 08/25/19 09:13 Dose: 40 mg Documented by: [id number] Escitalopram Oxalate (Lexapro Tab) 20 mg PO DAILY [facility] Stop: 09/24/19 08:59 Last Admin: 08/26/19 08:23 Dose: 20 mg Documented by: [id number] Admin: 08/25/19 09:13 Dose: 20 mg Documented by: [id number] Gadobutrol (Gadavist 65ml) 6.7 ml IV ONCE PRN PRN Reason: Interaction Checking Stop: 08/29/19 03:02 Last Admin: 08/25/19 02:40 Dose: 6.7 ml Documented by: [id number] Hydralazine HCl (Hydralazine Hcl) 10 mg IV NOW STA Stop: 08/25/19 19:44 Last Admin: 08/25/19 20:02 Dose: 10 mg Documented by: [id number] Sodium Chloride (Nss 1000ml) 1,000 mls @ 999 mls/hr IV .Q1H1M [facility] Stop: 08/24/19 17:59 Last Infusion: 08/24/19 20:21 Dose: 0 mls/hr Documented by: [id number] Admin: 08/24/19 19:14 Dose: 999 mls/hr Documented by: [id number] Infusion: 08/24/19 18:56 Dose: 0 mls/hr Documented by: [id number] Admin: 08/24/19 17:01 Dose: 999 mls/hr Documented by: [id number] Potassium Chloride (K Dio / Wtr) 10 meq in 100 mls @ 100 mls/hr IV ONE ONE Stop: 08/24/19 20:09 Last Infusion: 08/24/19 20:21 Dose: 0 mls/hr Documented by: [id number] Admin: 08/24/19 19:14 Dose: 100 mls/hr Documented by: [id number] Potassium Chloride (K Dio / Wtr) 10 meq in 100 mls @ 100 mls/hr IV Q1H [facility] Stop: 08/25/19 00:29 Last Infusion: 08/25/19 11:11 Dose: 0 mls/hr Documented by: [id number] Admin: 08/25/19 10:00 Dose: 100 mls/hr Documented by: [id number] Infusion: 08/25/19 09:26 Dose: 80 mls/hr Documented by: [id number] Infusion: 08/25/19 09:12 Dose: 80 mls/hr Documented by: [id number] Infusion: 08/25/19 07:00 Dose: 0 mls/hr Documented by: [id number] Infusion: 08/25/19 06:07 Dose: 80 mls/hr Documented by: [id number] Admin: 08/25/19 06:00 Dose: 100 mls/hr Documented by: [id number] Infusion: 08/25/19 06:00 Dose: 100 mls/hr Documented by: [id number] Admin: 08/25/19 05:00 Dose: 100 mls/hr Documented by: [id number] Ceftriaxone Sodium 2,000 mg/ (Dextrose) 70 mls @ 100 mls/hr IV Q24H [facility]; Protocol Stop: 08/27/19 01:59 Last Infusion: 08/26/19 02:49 Dose: 0 mls/hr Documented by: [id number] Admin: 08/26/19 02:07 Dose: 100 mls/hr Documented by: [id number] Infusion: 08/25/19 05:04 Dose: 0 mls/hr Documented by: [id number] Admin: 08/25/19 04:18 Dose: 100 mls/hr Documented by: [id number] Lactated Ringer's (Lr) 1,000 mls @ 100 mls/hr IV .Q10H [facility] Stop: 08/25/19 19:48 Last Admin: 08/25/19 13:36 Dose: Not Given Documented by: [id number] Infusion: 08/25/19 13:35 Dose: 0 mls/hr Documented by: [id number] Infusion: 08/25/19 09:12 Dose: 100 mls/hr Documented by: [id number] Infusion: 08/25/19 07:00 Dose: 0 mls/hr Documented by: [id number] Admin: 08/25/19 00:46 Dose: 100 mls/hr Documented by: [id number] Acetaminophen (Ofirmev) 1,000 mg in 100 mls @ 400 mls/hr IV Q8H PRN PRN Reason: Pain or Fever Stop: 08/26/19 12:25 Last Infusion: 08/25/19 14:22 Dose: 0 mls/hr Documented by: [id number] Admin: 08/25/19 14:02 Dose: 400 mls/hr Documented by: [id number] Promethazine HCl 6.25 mg/ (Sodium Chloride) 50.25 mls @ 201 mls/hr IV Q6H PRN PRN Reason: Nausea And Vomiting Stop: 09/24/19 13:11 Last Infusion: 08/25/19 14:33 Dose: 0 mls/hr Documented by: [id number] Admin: 08/25/19 14:02 Dose: 201 mls/hr Documented by: [id number] Promethazine HCl 6.25 mg/ (Sodium Chloride) 50.25 mls @ 201 mls/hr IV NOW STA Stop: 08/25/19 20:02 Last Infusion: 08/25/19 21:16 Dose: 0 mls/hr Documented by: [id number] Admin: 08/25/19 20:08 Dose: 201 mls/hr Documented by: [id number] Potassium Chloride (K Dio / Wtr) 10 meq in 100 mls @ 100 mls/hr IV Q1H [facility] Stop: 08/30/19 13:44 Last Infusion: 08/30/19 16:28 Dose: 0 mls/hr Documented by: [id number] Admin: 08/30/19 14:48 Dose: 100 mls/hr Documented by: [id number] Infusion: 08/30/19 14:41 Dose: 100 mls/hr Documented by: [id number] Infusion: 08/30/19 14:24 Dose: 100 mls/hr Documented by: [id number] Infusion: 08/30/19 12:52 Dose: 0 mls/hr Documented by: [id number] Admin: 08/30/19 12:08 Dose: 100 mls/hr Documented by: [id number] Infusion: 08/30/19 11:57 Dose: 100 mls/hr Documented by: [id number] Admin: 08/30/19 10:57 Dose: 100 mls/hr Documented by: [id number] Levetiracetam 750 mg/ Sodium (Chloride) 107.5 mls @ 440 mls/hr IV NOW ONE Stop: 08/30/19 12:44 Last Infusion: 08/30/19 13:09 Dose: 0 mls/hr Documented by: [id number] Admin: 08/30/19 12:52 Dose: 440 mls/hr Documented by: [id number] Levetiracetam 750 mg/ Sodium (Chloride) 107.5 mls @ 440 mls/hr IV TODAY@1999 ONE Stop: 08/30/19 20:14 Last Infusion: 08/30/19 22:00 Dose: 0 mls/hr Documented by: [id number] Admin: 08/30/19 21:42 Dose: 440 mls/hr Documented by: [id number] Vancomycin HCl 1,750 mg/ (Sodium Chloride) 535 mls @ 200 mls/hr IV NOW ONE Stop: 08/30/19 18:10 Last Infusion: 08/30/19 20:22 Dose: 0 mls/hr Documented by: [id number] Admin: 08/30/19 16:40 Dose: 200 mls/hr Documented by: [id number] Ioversol (Optiray 320 125ml) 94 ml IV ONCE PRN PRN Reason: Interaction Checking Stop: 08/28/19 17:58 Last Admin: 08/24/19 18:00 Dose: 94 ml Documented by: [id number] Levetiracetam (Keppra) 750 mg PO BID [facility] Stop: 09/24/19 08:59 Last Admin: 08/30/19 08:38 Dose: 750 mg Documented by: [id number] Admin: 08/29/19 22:04 Dose: 750 mg Documented by: [id number] Admin: 08/29/19 08:25 Dose: 750 mg Documented by: [id number] Admin: 08/28/19 21:22 Dose: 750 mg Documented by: [id number] Admin: 08/28/19 09:27 Dose: 750 mg Documented by: [id number] Admin: 08/27/19 21:12 Dose: 750 mg Documented by: [id number] Admin: 08/27/19 10:21 Dose: 750 mg Documented by: [id number] Admin: 08/26/19 21:10 Dose: 750 mg Documented by: [id number] Admin: 08/26/19 08:23 Dose: 750 mg Documented by: [id number] Admin: 08/25/19 20:09 Dose: 750 mg Documented by: [id number] Admin: 08/25/19 09:13 Dose: 750 mg Documented by: [id number] Metoclopramide HCl (Reglan) 10 mg IV Q8H IAN Stop: 09/26/19 07:29 Last Admin: 08/27/19 07:51 Dose: Not Given Documented by: [id number] Morphine Sulfate (Morphine Sulfate) 3 mg IV NOW STA Stop: 08/25/19 16:38 Last Admin: 08/25/19 17:02 Dose: 3 mg Documented by: [id number] Morphine Sulfate (Morphine Sulfate) 3 mg IV Q6H PRN PRN Reason: Severe Pain Stop: 09/08/19 16:39 Last Admin: 08/26/19 23:48 Dose: 3 mg Documented by: [id number] Admin: 08/26/19 14:10 Dose: 3 mg Documented by: [id number] Admin: 08/26/19 01:37 Dose: 3 mg Documented by: [id number] Ondansetron HCl (Zofran) 4 mg IV NOW STA Stop: 08/24/19 15:56 Last Admin: 08/24/19 17:01 Dose: 4 mg Documented by: [id number] Potassium Chloride (Klor-Con M20) 40 meq PO NOW STA Stop: 08/24/19 23:50 Last Admin: 08/25/19 00:46 Dose: 40 meq Documented by: [id number] Valacyclovir HCl (Valtrex) 500 mg PO TID IAN Stop: 09/03/19 13:59 Last Admin: 08/30/19 14:45 Dose: Not Given Documented by: [id number] Admin: 08/30/19 08:38 Dose: 500 mg Documented by: [id number] Admin: 08/29/19 22:05 Dose: 500 mg Documented by: [id number] Admin: 08/29/19 14:04 Dose: 500 mg Documented by: [id number] Admin: 08/29/19 08:24 Dose: 500 mg Documented by: [id number] Admin: 08/28/19 21:22 Dose: 500 mg Documented by: [id number] Admin: 08/28/19 15:17 Dose: 500 mg Documented by: [id number] Admin: 08/28/19 09:28 Dose: 500 mg Documented by: [id number] Admin: 08/27/19 21:12 Dose: 500 mg Documented by: [id number] Admin: 08/27/19 14:30 Dose: 500 mg Documented by: [id number] Medical Decision Making Medical Records Attestation: I reviewed the patient's medical records. Home Medications Current Medication List: was personally reviewed by me Laboratory Data Attestation: I reviewed the patient's lab results. Result diagrams: 08/31/19 05:54 08/31/19 05:54 Lab Results 08/24/19 08/24/19 08/24/19 Range/Units 16:50 16:50 16:50 WBC 12.14 H (4.8-10.8) K/uL RBC 4.42 L (4.7-6.1) M/uL Hgb 15.0 (14.0-18.0) g/dL Hct 41.7 L (42-52) % MCV 94.3 (80-100) fL MCH 33.9 (25-34) pg MCHC 36.0 (32-36) g/dL RDW Std Deviation 43.0 (36.4-46.3) fL RDW Coeff of Giuliana 12.5 (11.5-14.5) % Plt Count 324 (130-400) K/uL MPV 9.5 (7.4-10.4) fL Immature Gran % (Auto) 0.4 % Neut % (Auto) 77.4 % Lymph % (Auto) 14.8 % [place] % (Auto) 7.2 % Eos % (Auto) 0.0 % Baso % (Auto) 0.2 % Neut # (Auto) 9.39 H (1.4-6.5) K/uL Lymph # (Auto) 1.80 (1.2-3.4) K/uL [place] # (Auto) 0.88 H (0.11-0.59) K/uL Eos # (Auto) 0.00 (0-0.5) K/uL Baso # (Auto) 0.02 (0-0.2) K/uL Immature Gran # (Auto) 0.05 H (0.00-0.02) K/uL Absolute Nucleated RBC 0.00 (0-0) K/uL Nucleated RBC % (auto) 0.0 % PT 11.0 (9.0-12.0) Seconds INR 1.0 (0.9-1.1) Sodium 131 L (136-145) mmol/L Potassium 2.7 L (3.5-5.1) mmol/L Chloride 89 L (98-107) mmol/L Carbon Dioxide 33 H (21-32) mmol/L Anion Gap 9.0 (3-11) BUN 12 (7-18) mg/dl Creatinine 1.00 (0.6-1.4) mg/dl Est Cr Clr Drug Dosing Not Reportable Est GFR ( Amer) 109.4 Est GFR (Non-Af Amer) 94.4 BUN/Creatinine Ratio 12.0 (10-20) Glucose 105 H (70-99) mg/dl Calcium 9.7 (8.5-10.1) mg/dl Magnesium 2.2 (1.8-2.4) mg/dl Total Bilirubin 3.2 H (0.2-1) mg/dl AST 18 (15-37) U/L ALT 36 (12-78) U/L Alkaline Phosphatase 74 (45-117) U/L Total Creatine Kinase 32 L (39-308) U/L Troponin I < 0.015 (0-0.045) ng/ml Total Protein 8.2 (6.4-8.2) gm/dl Albumin 4.1 (3.4-5.0) gm/dl Globulin 4.1 H (2.5-4.0) gm/dl Albumin/Globulin Ratio 1.0 (0.9-2) Lipase 82 (73-393) U/L TSH 0.088 L (0.300-4.500) uIu/ml Free T4 (0.8-1.6) ng/dl Anaplasma Smear See Comment Lyme Disease IgG Ab (Negative) Lyme IgG (Western Blot) (NEGATIVE) Lyme IgG 18 kDa Band Lyme IgG 23 kDa Band Lyme IgG 28 kDa Band Lyme IgG 30 kDa Band Lyme IgG 39 kDa Band Lyme IgG 41 kDa Band Lyme IgG 45 kDa Band Lyme IgG 58 kDa Band Lyme IgG 66 kDa Band Lyme IgG 93 kDa Band Lyme IgM Ab (WB) (NEGATIVE) Lyme Disease IgM Ab (Negative) Lyme IgM 23 kDa Band Lyme IgM 39 kDa Band Lyme IgM 41 kDa Band 08/24/19 08/24/19 08/24/19 Range/Units 16:50 16:50 16:50 WBC (4.8-10.8) K/uL RBC (4.7-6.1) M/uL Hgb (14.0-18.0) g/dL Hct (42-52) % MCV (80-100) fL MCH (25-34) pg MCHC (32-36) g/dL RDW Std Deviation (36.4-46.3) fL RDW Coeff of Giuliana (11.5-14.5) % Plt Count (130-400) K/uL MPV (7.4-10.4) fL Immature Gran % (Auto) % Neut % (Auto) % Lymph % (Auto) % [place] % (Auto) % Eos % (Auto) % Baso % (Auto) % Neut # (Auto) (1.4-6.5) K/uL Lymph # (Auto) (1.2-3.4) K/uL [place] # (Auto) (0.11-0.59) K/uL Eos # (Auto) (0-0.5) K/uL Baso # (Auto) (0-0.2) K/uL Immature Gran # (Auto) (0.00-0.02) K/uL Absolute Nucleated RBC (0-0) K/uL Nucleated RBC % (auto) % PT (9.0-12.0) Seconds INR (0.9-1.1) Sodium (136-145) mmol/L Potassium (3.5-5.1) mmol/L Chloride (98-107) mmol/L Carbon Dioxide (21-32) mmol/L Anion Gap (3-11) BUN (7-18) mg/dl Creatinine (0.6-1.4) mg/dl Est Cr Clr Drug Dosing Est GFR ( Amer) Est GFR (Non-Af Amer) BUN/Creatinine Ratio (10-20) Glucose (70-99) mg/dl Calcium (8.5-10.1) mg/dl Magnesium (1.8-2.4) mg/dl Total Bilirubin (0.2-1) mg/dl AST (15-37) U/L ALT (12-78) U/L Alkaline Phosphatase (45-117) U/L Total Creatine Kinase (39-308) U/L Troponin I (0-0.045) ng/ml Total Protein (6.4-8.2) gm/dl Albumin (3.4-5.0) gm/dl Globulin (2.5-4.0) gm/dl Albumin/Globulin Ratio (0.9-2) Lipase (73-393) U/L TSH (0.300-4.500) uIu/ml Free T4 1.59 (0.8-1.6) ng/dl Anaplasma Smear Lyme Disease IgG Ab Positive A (Negative) Lyme IgG (Western Blot) NEGATIVE (NEGATIVE) Lyme IgG 18 kDa Band REACTIVE A Lyme IgG 23 kDa Band NON-REACTIVE Lyme IgG 28 kDa Band REACTIVE A Lyme IgG 30 kDa Band NON-REACTIVE Lyme IgG 39 kDa Band REACTIVE A Lyme IgG 41 kDa Band NON-REACTIVE Lyme IgG 45 kDa Band NON-REACTIVE Lyme IgG 58 kDa Band REACTIVE A Lyme IgG 66 kDa Band NON-REACTIVE Lyme IgG 93 kDa Band NON-REACTIVE Lyme IgM Ab (WB) POSITIVE A (NEGATIVE) Lyme Disease IgM Ab Equivocal A (Negative) Lyme IgM 23 kDa Band REACTIVE A Lyme IgM 39 kDa Band REACTIVE A Lyme IgM 41 kDa Band NON-REACTIVE Imaging Data Attestation: I personally reviewed and interpreted this imaging study as follows: Radiologist's Impression: CT head without contrast . Moderate chronic hydrocephalus. 2. Stable heterogeneity of the periventricular deep white matter regions. 3. No acute or interval process compared to the prior exam. ACT 112: Negative or not required by law. The above report was generated using voice recognition software. It may contain grammatical, syntax or spelling errors. Electronically signed by: Volodymyr Russo M.D. CT abdomen and pelvis with IV contrast only No acute process in the abdomen or pelvis. ACT 112: Negative or not required by law. The above report was generated using voice recognition software. It may contain grammatical, syntax or spelling errors. Electronically signed by: Volodymyr Russo M.D. 08/24/2019 6:06 PM Dictated: 08/24/19 180 Transcribed: 08/24/191803 Chest x-ray Negative chest. ACT 112: Negative or not required by law. The above report was generated using voice recognition software. It may contain grammatical, syntax or spelling errors. Electronically signed by: Volodymyr Russo M.D. 08/24/2019 4:38 PM Dictated: 08/24/19 1637 Transcribed: 08/24/19 163 MDM Narrative Differential diagnosis: Neurogenic abnormality, cardiac abnormality, GI illness, bowel obstruction, gallbladder pathology, GI bleed, among others This patient is a 39-year-old male that presents to the emergency department via private vehicle for evaluation of altered mental status, decreased appetite and vomiting. The patient was reluctant to answer questions. Vital signs were stable. He did appear dehydrated. Multiple electrolyte abnormalities were noted, likely secondary to dehydration. Unfortunately, I was unable to get the patient's symptoms under control. He was not tolerating fluids. For this reason, it was felt that hospitalist evaluation was warranted. He would likely be admitted for inpatient management. Impression & Plan Altered mental status Discharge Plan Visit Data *Final* Discharge Date/Time: 08/24/19 22:26 Chief Complaint: Cardiac Assessment Stated Complaint: DR DIAGNOSED W/STROKE TUES HAVING PROBLEMS ED Provider: Ruben Caldera ED Midlevel Provider: Hayley Goins Discharge Problem: Altered mental status Patient Disposition: Admitted As Inpatient Discharge Instructions Interventions: ED Discharge Assessment Last Done: 08/24/19 22:26
--- NOTE | 2019-08-24 16:39 | XRay Report ---
XR chest 1V portable CLINICAL HISTORY: AMS chest pain COMPARISON STUDY: 03/03/2019 FINDINGS: The bones soft tissues and hemidiaphragms are normal. The cardiomediastinal silhouette is n ormal. The lungs are clear. The pulmonary vasculature is normal. IMPRESSION: Negative chest. ACT 112: Negative or not required by law. The above report was generated using voice recognition software. It may contain grammatical, syntax or spelling errors. Electronically signed by: Volodymyr Russo M.D. 08/24/2019 4:38 PM
[2019-08-24] MEDS: SODIUM CHLORIDE 0.9% 1000ML 1,000 ML IV SCH ×2 (17:01→19:14)
[2019-08-24 17:11] LABS: Basophils # (auto) 0.02 K/uL (0-0.2); Basophils % (auto) 0.2 %; Hematocrit (blood only) 41.7 % (42-52); Immature Granulocytes # (auto) 0.05 K/uL (0.00-0.02); Immature Granulocytes % (auto) 0.4 %; Lymphocytes % (auto) 14.8 %; Mean Corpuscular Hemoglobin 33.9 pg (25-34); Mean Corpuscular Volume 94.3 fL (80-100); Mean Platelet Volume 9.5 fL (7.4-10.4); Monocytes # (auto) 0.88 K/uL (0.11-0.59); Monocytes % (auto) 7.2 %; Neutrophils # (auto) 9.39 K/uL (1.4-6.5); Neutrophils % (auto) 77.4 %; Platelet Count 324 K/uL (130-400); RDW Coefficient of Variation 12.5 % (11.5-14.5); Red Blood Count 4.42 M/uL (4.7-6.1); White Blood Count 12.14 K/uL (4.8-10.8)
[2019-08-24 17:31] LABS: Alanine Aminotransferase 36 U/L (12-78); Albumin Level 4.1 gm/dl (3.4-5.0); Aspartate Aminotransferase 18 U/L (15-37); Blood Urea Nitrogen 12 mg/dl (7-18); Calcium 9.7 mg/dl (8.5-10.1); Carbon Dioxide 33 mmol/L (21-32); Chloride 89 mmol/L (98-107); Est GFR (African American) 109.4; Est GFR (Non-African American) 94.4; Glucose 105 mg/dl (70-99); Lipase 82 U/L (73-393); Magnesium 2.2 mg/dl (1.8-2.4); Potassium 2.7 mmol/L (3.5-5.1); Sodium 131 mmol/L (136-145)
[2019-08-24 17:42] LABS: Alkaline Phosphatase 74 U/L (45-117); Bilirubin,Total 3.2 mg/dl (0.2-1); Creatine Kinase 32 U/L (39-308); Globulin 4.1 gm/dl (2.5-4.0); Thyroid Stimulating Hormone 0.088 uIu/ml (0.300-4.500); Total Protein 8.2 gm/dl (6.4-8.2); Troponin I < 0.015 ng/ml (0-0.045)
[2019-08-24] MEDS ORDERED: OPTIRAY 320 125ml IV PRN (17:59)
--- NOTE | 2019-08-24 18:04 | CT Scan Report ---
CT head/brain wo con CT DOSE: HISTORY: Mental status change AMS TECHNIQUE: Multiaxial CT images of the head were performed without the use of intravenous contrast. A dose lowering technique was utilized adhering to the principles of ALARA. Comparison: 06/07/2019 Findings: The paranasal sinuses and mastoid air cells are clear. Stable moderate hydrocephalus. Stabl e periventricular deep white matter inhomogeneity. No new or interval findings. No evidence for acute intracranial hemorrhage. No evidence for midline shift. Impression: 1. Moderate chronic hydrocephalus. 2. Stable heterogeneity of the periventricular deep white matter regions. 3. No acute or interval process compared to the prior exam. ACT 112: Negative or not required by law. The above report was generated using voice recognition software. It may contain grammatical, syntax or spelling errors. Electronically signed by: Volodymyr Russo M.D. 08/24/2019 6:03 PM
--- NOTE | 2019-08-24 18:07 | CT Scan Report ---
CT abd pelvis IV con only CT DOSE: 1548.06 mGy.cm HISTORY: Pain. Vomiting. vomiting TECHNIQUE: Multiaxial CT images of the abdomen and pelvis were performed following the use of intrave nous contrast. A dose lowering technique was utilized adhering to the principles of ALARA. COMPARISON STUDY: 10/27/2015 FINDINGS: The lung bases are clear. The liver, spleen, gallbladder, pancreas, kidneys, and adrenal gl ands are within normal limits. No bowel wall thickening or obstruction. The pelvic organs are unremar kable. No suspicious lytic or blastic osseous lesions. Patent urachus. Nonobstructing lower pole left renal calcifications unchanged. No evidence for renal hydronephrosis. IMPRESSION: No acute process in the abdomen or pelvis. ACT 112: Negative or not required by law. The above report was generated using voice recognition software. It may contain grammatical, syntax or spelling errors. Electronically signed by: Volodymyr Russo M.D. 08/24/2019 6:06 PM
[2019-08-24 18:54] LABS: Lyme Ab IgG w/WB Rflx Positive (Negative); Lyme Ab IgM w/WB Rflx Equivocal (Negative)
[2019-08-24] MEDS ORDERED: POTASSIUM CHLORIDE / WTR 10 MEQ/100 ML PLCT IV ONE (19:10)
--- NOTE | 2019-08-24 22:10 | History & Physical Report ---
Date of Service August 24, 2019 Assessment & Plan (1) Altered mental status: (2) Headache: (3) History of Lyme disease: (4) History of meningitis: (5) Hydrocephalus: (6) Nausea: (7) Vomiting: Patient with acutely altered mental status & headache x 1 week per his mother. Uncertain etiology WBC count slightly elevated. Consider infection as possible cause. 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 Will await WB. Anaplasma smear pending as well. Start Ceftriaxone and Doxycycline pending results. UA & Cx pending. CT of head and abdomen/pelvis unrevealing. With hx of meningitis, anoxic brain injury, brain abscess, and hydrocephalus, will also check MRI Consult Neurology Check Keppra level Aspiration, fall, & seizure precautions No current nuchal rigidity. Monitor for signs of meningitis and consider LP if mentation does not improve. (8) HTN (hypertension): BP elevated in ED. Monitor on Med/Surg with Tele (9) SIADH (syndrome of inappropriate ADH production): (10) Alkalosis: (11) Hyponatremia: (12) Hypokalemia: Chronic SIADH, but very dehydrated on exam. Worsened hyponatremia and also hypokalemia likely secondary to vomiting, decreased appetite, and poor PO intake overall. Lactated ringer's x 2 bags PO Potassium 40 mEq x 1. Continue PO intake as well as tolerated (13) Hyperbilirubinemia: Elevated bilirubin level to 3.2 with otherwise normal LFTs, but + vomiting Check RUQ US. Recheck CMP in AM (14) Subclinical hyperthyroidism: TSH low. T4 normal. Likely subclinical hyperthyroidism in the setting of acute issue. Recheck TSH/T4 tomorrow. Consider further treatment/workup pending repeat labs (15) History of heroin use: (16) History of opioid abuse: Tox screen pending. Consider relapse as possible cause of altered mental status. (17) DVT prophylaxis: Lovenox History of Present Illness Chief Complaint: Altered mental status Primary Care Provider: Josiane Obrien DO Patient is a 39 yo male who presented to the ED for altered mental status and confusion x 1 week. The patient does not give a very reliable history, but he does state that his mother could be helpful and gave permission for us to call. His mother stated that over the past 1 week, he has started to become very confused. He has had problems walking and getting himself out of bed. He has also lost control of his bladder at times. He has had decreased appetite, vomiting, and headache at home. The patient typically functions much better than he is currently. He does have history of drug abuse, but his mother states he hasn't been using recently that she knows of. 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 The patient has been chronically noncompliant from review of his history. He has eloped from the hospital on multiple occasions in the past. 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 He has no history of alcohol use per his record. Since presentation, patient noted to have WBC count elevated at 12.14, hyponatremia down to 131, hypokalemia down to 2.7, elevated bilirubin of 3.2 but otherwise normal LFTs. Troponin negative. CK normal. TSH low at 0.088 with normal T4. Lyme IgG AB + and IgM AB equivocal. WB pending. Anaplasma smear pending. UA & tox screen pending. Head CT shows no acute changes. CT abd/pelvis showed no acute process. CXR ne gative. Allergies Allergy/AdvReac Type Severity Reaction Status Date / Time Penicillins Allergy Unknown Unknown Verified 08/24/19 17:10 Home Medications Home Medications Medication Instructions Recorded Confirmed Type levetiracetam [Keppra] 750 mg PO BID 03/02/19 08/24/19 History escitalopram oxalate 10 mg PO DIRECTED 08/24/19 08/24/19 History escitalopram oxalate 20 mg PO DIRECTED 08/24/19 08/24/19 History galcanezumab-gnlm [Emgality Pen] 120 mg SUBCUT MONTHLY 08/24/19 08/24/19 History multivitamin with minerals [Men's 1 tab PO DAILY 08/24/19 08/24/19 History One Daily] Past Med/Surg History Medical History Abscess of forearm, left (Inactive) Brain abscess (Inactive) Brain abscess Heroin overdose (Inactive) History of heroin use (Resolved) History of lumbar puncture (Chronic) 12/2018 - [facility] [place] History of meningitis (Inactive) History of opioid abuse Hydrocephalus (Inactive) Hydrocephalus Hypokalemia (Inactive) Low back pain (Inactive) Psoriasis (Chronic) Sepsis SIADH (syndrome of inappropriate ADH production) Syncope (Inactive) Tobacco use (Chronic) Surgical History No pertinent past surgical history Family History Other Diabetes Stroke Social History Preferred Language: [place]ijani Communication Ability: Effective Fly Worker Required: No Beliefs That Will Affect Care: None marital status: Single Current Living Situation: Parent Current Living Situation Comment: lives with mom Feels Safe at Home: Yes Smoking Status: Current every day smoker Tobacco Type: cigarettes ; Cigarettes Per Day: 12 ; Second Hand Exposure: No ; Hx Alcohol Use: No Hx Substance Use: Yes substance use type: heroin and opiates Substance Use Type Other:: states former user Review of Systems Review of Systems: Unobtainable due to cognitive status Physical Exam Constitutional: well developed, + ill appearing and + altered mental status; + not appropriately hydrated Eyes: PERRL, conjunctivae normal, anicteric sclerae ENMT: Ears: no hearing impairment Mouth: + lip abnormality (Very dry) and + dentition abnormality Dry mucous membranes Neck: trachea midline, no thyromegaly Respiratory: normal respiratory effort, lungs clear to auscultation Cardiovascular: RRR, no murmur, no edema Gastrointestinal (Abdomen): normal bowel sounds, soft, nontender, no hepatosplenomegaly Musculoskeletal: Head/Neck/Chest: normocephalic and head atraumatic Extremities: extremities normal to inspection Skin: no rashes, warm and dry Neurologic: CN's II-XI intact bilaterally and moves all extremities; no focal motor deficits Speech / Cognition: normal speech Motor/Sensory: no tremor Psychiatric: Alert, Oriented to place and person. Not oriented to time. He states that the month is March. Flat affect Results & Data Results & Data ([facility] [place]) Vital Signs (Past 12 Hours) Vital Signs Temp Pulse Pulse Resp BP BP Pulse Ox 08/24/19 21:09 77 20 151/100 H 98 08/24/19 20:07 87 16 139/107 H 98 08/24/19 19:01 85 2 L 08/24/19 19:00 83 147/100 H 08/24/19 18:50 85 08/24/19 18:40 83 08/24/19 18:31 87 12 08/24/19 18:30 88 145/102 H 08/24/19 18:20 90 97 08/24/19 18:10 93 H 12 96 08/24/19 18:07 97 H 10 L 153/104 H 95 08/24/19 18:06 103 H 08/24/19 17:40 79 18 08/24/19 17:30 79 12 08/24/19 17:20 76 9 L 08/24/19 17:10 80 10 L 08/24/19 17:00 86 78 11 L 147/90 H 95 08/24/19 16:50 93 H 14 08/24/19 16:40 94 H 16 08/24/19 16:31 111 H 20 08/24/19 16:30 94 H 18 147/110 H 08/24/19 16:26 96 H 12 144/107 H 08/24/19 16:23 95 H 7 L 08/24/19 14:29 37.3 C 112 H 20 151/117 H 96 Laboratory Results Laboratory Results - last 24 hr 08/24/19 08/24/19 08/24/19 16:50 16:50 16:50 WBC 12.14 H RBC 4.42 L Hgb 15.0 Hct 41.7 L MCV 94.3 MCH 33.9 MCHC 36.0 RDW Std Deviation 43.0 RDW Coeff of Giuliana 12.5 Plt Count 324 MPV 9.5 Immature Gran % (Auto) 0.4 Neut % (Auto) 77.4 Lymph % (Auto) 14.8 [place] % (Auto) 7.2 Eos % (Auto) 0.0 Baso % (Auto) 0.2 Neut # (Auto) 9.39 H Lymph # (Auto) 1.80 [place] # (Auto) 0.88 H Eos # (Auto) 0.00 Baso # (Auto) 0.02 Immature Gran # (Auto) 0.05 H Absolute Nucleated RBC 0.00 Nucleated RBC % (auto) 0.0 PT 11.0 INR 1.0 Sodium 131 L Potassium 2.7 L Chloride 89 L Carbon Dioxide 33 H Anion Gap 9.0 BUN 12 Creatinine 1.00 Est Cr Clr Drug Dosing Not Reportable Est GFR ( Amer) 109.4 Est GFR (Non-Af Amer) 94.4 BUN/Creatinine Ratio 12.0 Glucose 105 H Calcium 9.7 Magnesium 2.2 Total Bilirubin 3.2 H AST 18 ALT 36 Alkaline Phosphatase 74 Total Creatine Kinase 32 L Troponin I < 0.015 Total Protein 8.2 Albumin 4.1 Globulin 4.1 H Albumin/Globulin Ratio 1.0 Lipase 82 TSH 0.088 L Free T4 Anaplasma Smear Pending Lyme Disease IgG Ab Lyme IgG (Western Blot) Lyme IgG 18 kDa Band Lyme IgG 23 kDa Band Lyme IgG 28 kDa Band Lyme IgG 30 kDa Band Lyme IgG 39 kDa Band Lyme IgG 41 kDa Band Lyme IgG 45 kDa Band Lyme IgG 58 kDa Band Lyme IgG 66 kDa Band Lyme IgG 93 kDa Band Lyme IgM Ab (WB) Lyme Disease IgM Ab Lyme IgM 23 kDa Band Lyme IgM 39 kDa Band Lyme IgM 41 kDa Band 08/24/19 08/24/19 08/24/19 16:50 16:50 16:50 WBC RBC Hgb Hct MCV MCH MCHC RDW Std Deviation RDW Coeff of Giuliana Plt Count MPV Immature Gran % (Auto) Neut % (Auto) Lymph % (Auto) [place] % (Auto) Eos % (Auto) Baso % (Auto) Neut # (Auto) Lymph # (Auto) [place] # (Auto) Eos # (Auto) Baso # (Auto) Immature Gran # (Auto) Absolute Nucleated RBC Nucleated RBC % (auto) PT INR Sodium Potassium Chloride Carbon Dioxide Anion Gap BUN Creatinine Est Cr Clr Drug Dosing Est GFR ( Amer) Est GFR (Non-Af Amer) BUN/Creatinine Ratio Glucose Calcium Magnesium Total Bilirubin AST ALT Alkaline Phosphatase Total Creatine Kinase Troponin I Total Protein Albumin Globulin Albumin/Globulin Ratio Lipase TSH Free T4 1.59 Anaplasma Smear Lyme Disease IgG Ab Positive A Lyme IgG (Western Blot) Pending Lyme IgG 18 kDa Band Pending Lyme IgG 23 kDa Band Pending Lyme IgG 28 kDa Band Pending Lyme IgG 30 kDa Band Pending Lyme IgG 39 kDa Band Pending Lyme IgG 41 kDa Band Pending Lyme IgG 45 kDa Band Pending Lyme IgG 58 kDa Band Pending Lyme IgG 66 kDa Band Pending Lyme IgG 93 kDa Band Pending Lyme IgM Ab (WB) Pending Lyme Disease IgM Ab Equivocal A Lyme IgM 23 kDa Band Pending Lyme IgM 39 kDa Band Pending Lyme IgM 41 kDa Band Pending Diagnostic Findings CT Abd/Pelvis: IMPRESSION: No acute process in the abdomen or pelvis. CT Head: Impression: 1. Moderate chronic hydrocephalus. 2. Stable heterogeneity of the periventricular deep white matter regions. 3. No acute or interval process compared to the prior exam. CXR: IMPRESSION: Negative chest. Code Status & VTE Plan VTE Prophylaxis Plan VTE Prophylaxis will be ordered: Yes Supervising Physician Co-Signing Physician Notes Patient is a 39-year-old male with complicated medical history of Lyme's meningitis, drug abuse disorder, SIADH, brain abscess, seizure disorder, hydrocephalus and other medical problems presents with history of altered mental status since 1 week duration. Patient was unable to provide any history given his mental status, although he is oriented to person and place. He is alert, awake while in ED. Most of the history is obtained from old records and patient's family. Patient has been confused since 1 week duration as per patient's mother. He was also noted to have difficulty with ambulation and had bladder incontinence. He had poor appetite, nausea and vomiting, and complained of headache. His mental status change from baseline as per family. Please review HPI for complete details of presentation. CT head showed no acute process. It is suggestive of moderate chronic hydrocephalus, stable heterogeneity of the periventricular deep white matter regions. He is clinically dehydrated. Noted mild leukocytosis. Also had hyponatremia 131, hypokalemia 2.7, contraction alkalosis bicarbonate elevated at 33. Noted elevated total bilirubin 3.2. AST, ALT, alk phos within normal limits. TSH noted to be 0.088, although normal free T4 levels. On exam he is moderately built and nourished, no apparent distress, oriented only to person, place, clinically dehydrated, normocephalic atraumatic, no neck stiffness, lungs are clear to auscultation, normal breath sounds, S1-S2, no murmur, no pedal edema, abdomen soft, nontender, no guarding or rigidity, was able to move all extremities with simple commands. Patient is admitted for management of altered mental status, nausea, vomiting electrolyte imbalance contraction alkalosis, elevated bilirubin levels, possible subclinical hypothyroidism. DD for AMS: Infectious, metabolic, Lyme, anaplasmosis in setting of seizure disorder, hydrocephalus, Lyme's meningitis. Will obtain MRI of the brain. Consulted neurology. Neurochecks requested. Will start on ceftriaxone, doxy until Lyme's disease ruled out. Peripheral smear requested. Urine tox screen pending. Will give IV fluids, although has history of SIADH given clinical dehydration. Elevated bicarbonate, likely due to contraction alkalosis. Will replace potassium. Will obtain right upper quadrant abdominal ultrasound. And monitor LFTs. Will repeat thyroid function tests in a.m. If consistent, will discuss with endocrinology for possible treatment of subclinical hypothyroidism. EKG showed nonspecific ST-T wave changes. Will repeat EKG. Consider lumbar puncture if no improvement with current management. I personally reviewed the record. Patient is interviewed and examined at bedside. Patient's care is coordinated with Elizabeth Giang PA-C. Please refer to the documentation above for details of patient's presentation and for discussion of other issues. (1) Hydrocephalus Hydrocephalus type: other Qualified Code(s): G91.8 - Other hydrocephalus (2) HTN (hypertension) Hypertension type: unspecified Qualified Code(s): I10 - Essential (primary) hypertension
[2019-08-24 22:43] LABS: Appearance Urine Clear (Clear); Bilirubin Urine Negative (Negative); Blood Urine Negative (Negative); Color Urine Yellow; Glucose Urine UA Negative (Negative); Ketones Urine Negative (Negative); Leukocyte Esterase Urine Negative (Negative); Nitrite Urine Negative (Negative); Protein Urine Negative (Negative); Specific Gravity Urine > 1.045 (1.000-1.030); Urobilinogen Urine Negative (Negative); pH Urine 8.5 (4.5-7.5)
[2019-08-24 23:05] LABS: Amphetamines+Metham, Urine Neg (Neg); Barbiturates, Urine Neg (Neg); Benzodiazepine, Urine Neg (Neg); Cocaine, Urine Neg (Neg); MDMA (Ecstacy), Urine Neg (Neg); Methadone, Urine Neg (Neg); Opiate, Urine Neg (Neg); Phencyclidine, Urine Neg (Neg)
[2019-08-24] MEDS ORDERED: POTASSIUM CHLORIDE 20 MEQ TABCR PO STA (23:49)
[2019-08-25] MEDS: LACTATED RINGER'S 1,000 ML IV SCH ×2 (00:46→13:36)
[2019-08-25] MEDS: DOXYCYCLINE HYCLATE 100 MG CAP PO SCH ×3 (00:56→20:09)
[2019-08-25] MEDS ORDERED: GADOBUTROL 65ML VIAL IV PRN (03:03)
[2019-08-25] MEDS: cefTRIAXone SODIUM 2,000 MG in DEXTROSE 5% 50 ML IV SCH (04:18)
[2019-08-25] MEDS: POTASSIUM CHLORIDE / WTR 10 MEQ/100 ML PLCT IV SCH ×3 (05:00→10:00)
[2019-08-25] MEDS: ACETAMINOPHEN 325 MG TAB PO PRN (05:59)
--- NOTE | 2019-08-25 07:35 | Ultrasound Report ---
ABDOMINAL ULTRASOUND, RIGHT UPPER QUADRANT HISTORY: Hyperbilirubinemia. COMPARISON: Abdomen and pelvis CT 08/24/2019. FINDINGS: Pancreas: The pancreatic head and tail are obscured by overlying bowel gas. The remaining portions of the pancreas are within normal limits. Liver: The liver is echogenic consistent with fatty change. Gallbladder: No gallbladder wall thickening. A few small stones and sludge within the gallbladder. Ne gative sonographic Link sign. CBD: 3 mm. Right kidney: No hydronephrosis. IMPRESSION: 1. Cholelithiasis. 2. Hepatic steatosis. ACT 112: Negative or not required by law. Electronically signed by: Keyon Manzano M.D. 08/25/2019 7:34 AM
--- NOTE | 2019-08-25 08:24 | Magnetic Resonance Report ---
MR brain wo/w con CLINICAL HISTORY: Altered mental status mental status change COMPARISON STUDY: CT brain same date. MRI brain 12/31/2018 TECHNIQUE: Utilizing a 1.5 Zhanna magnet and dedicated coil, multiplanar, multiecho imaging of the br ain was performed pre and postcontrast administration. IV administration of 9 mL of Gadavist contras t was uneventful. FINDINGS: Stable hydrocephalus. Diffusion images showed no evidence for an acute ischemic event. Mode rate chronic small vessel change throughout both cerebral as well as cerebellar hemispheres. Componen ts of the components of this potentially relate to transependymal CSF flow due to the hydrocephalus p resent. Postcontrast images again show evidence for dural as well as ventricular wall enhancement. This has b een described previously IMPRESSION: 1. No acute process. 2. Stable hydrocephalus. 3. Stable dural enhancement ACT 112: Negative or not required by law. The above report was generated using voice recognition software. It may contain grammatical, syntax or spelling errors. Electronically signed by: Volodymyr Russo M.D. 08/25/2019 8:23 AM
[2019-08-25] MEDS ORDERED: ENOXAPARIN INJ 40 MG/0.4 ML SYR SQ SCH (09:00)
[2019-08-25 09:07] LABS: BUN Creatinine Ratio 9.5 (10-20); Calcium 9.7 mg/dl (8.5-10.1); Est GFR (African American) 127.2; Est GFR (Non-African American) 109.8; Magnesium 2.2 mg/dl (1.8-2.4); Potassium 3.7 mmol/L (3.5-5.1)
[2019-08-25] MEDS: ESCITALOPRAM OXALATE 10 MG TAB PO SCH (09:13)
[2019-08-25] MEDS: levETIRAcetam 250 MG TAB PO SCH ×2 (09:13→20:09)
[2019-08-25 09:20] LABS: Albumin Globulin Ratio 1.1 (0.9-2); Bilirubin,Total 2.7 mg/dl (0.2-1); Globulin 3.7 gm/dl (2.5-4.0); T4 Free Thyroxine 1.34 ng/dl (0.8-1.6); Thyroid Stimulating Hormone 0.111 uIu/ml (0.300-4.500); Total Protein 7.7 gm/dl (6.4-8.2)
[2019-08-25 09:36] LABS: Hematocrit (blood only) 43.9 % (42-52); Hemoglobin 15.8 g/dL (14.0-18.0); Mean Corpuscular Hemoglobin 33.9 pg (25-34); Mean Corpuscular Volume 94.2 fL (80-100); Mean Platelet Volume 9.8 fL (7.4-10.4); Platelet Count 251 K/uL (130-400); RDW Coefficient of Variation 12.6 % (11.5-14.5); RDW Standard Deviation 43.3 fL (36.4-46.3); Red Blood Count 4.66 M/uL (4.7-6.1); White Blood Count 10.17 K/uL (4.8-10.8)
[2019-08-25] MEDS: ONDANSETRON INJ 2 MG/ML 2 ML VIAL IV PRN (12:20)
[2019-08-25] MEDS: CEROVITE ADV FORMULA TAB PO SCH (12:21)
[2019-08-25] MEDS ORDERED: ACETAMINOPHEN 1,000 MG/100 ML VIAL IV PRN (12:26)
--- NOTE | 2019-08-25 13:05 | Neurology Consultation ---
Date of Consultation August 25, 2019 Assessment & Plan (1) Altered mental status: 1. replace lytes as appropriate 2. EEG- questionable if he has been compliant with his seizure medications- no focus seen 3. recently started Escitalopram ox 10 mg -corresponds to patient recollection of when he started to feel unwell 4. continue Keppra 750 mg BID level pending 5. seizure and fall precautions 6. would have psychiatry see him loss of interest in life 7. primary team for work up of GI issues follow up with neurology 4-6 weeks after discharge Fay Orantes PAC schedule Present on Admission?: Yes (2) Hypokalemia: as above Present on Admission?: Yes (3) Hydrocephalus: as above Present on Admission?: Yes Supervising Physician Co-Signing Physician Notes Patient with history of lyme meningitis admitted for acute mental status changes. Patient appears very paranoid and restless in bed. He is naked this afternoon although alert. Routine EEG was limited due to continous motion. CK level was Normal. CRP mildly elevated. Afebrile. Repeat WBC shows no leukocytosis. The odd behaviors and paranoid appearance with elevated blood pressure and tachycardia are suggestive of possible substance withdrawal. Sy nthetic cathinones (bath salts) are not detected on UDS and can cause these symptoms. Agree with monitoring for now. Would check an anti-TPO antibody. Agree with psychiatric consult. History of Present Illness Reason for Consultation: AMS hx brain injury and meningitis Requesting Physician: Maxime Arroyo MD Attending Physician: Maxime Arroyo MD History of Present Illness Scot is a 39 year old male with a PMH SIADH, NSTEMI, seizure disorder and a history of drug abuse and non complaince who presented to the ED with a MS change and confusion x 1 week. His mother reports over the past 1 week, he has started to become very confused. He has had problems walking and getting himself out of bed. He has also lost control of his bladder at times. He has had decrea sed appetite, vomiting, and headache at home. He does have history of drug abuse, but his mother states he hasn't been using recently that she knows of. 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 He is well know to our service. He was hypokalemic at 2.7 on arrival which would correlate with his reported vomiting. He appears very depressed and states he has lost alot of weight. He was recently started on an antidepressant but tells me he is just getting tired of life. He does not admit to any plan to take his life. denies CP, SOB, abdominal pain, vision changes, diarrhea, new bowel or bladder issues, +N, V achy pain all over, minimal headache Allergies Allergy/AdvReac Type Severity Reaction Status Date / Time Penicillins Allergy Unknown Unknown Verified 08/24/19 17:10 Home Medications Home Medications Medication Instructions Recorded Confirmed Type levetiracetam [Keppra] 750 mg PO BID 03/02/19 08/24/19 History escitalopram oxalate 10 mg PO DIRECTED 08/24/19 08/24/19 History escitalopram oxalate 20 mg PO DIRECTED 08/24/19 08/24/19 History galcanezumab-gnlm [Emgality Pen] 120 mg SUBCUT MONTHLY 08/24/19 08/24/19 History multivitamin with minerals [Men's 1 tab PO DAILY 08/24/19 08/24/19 History One Daily] Patient History Medical History Abscess of forearm, left (Inactive) Brain abscess (Inactive) Brain abscess Heroin overdose (Inactive) History of heroin use (Resolved) History of lumbar puncture (Chronic) [place] [facility] [place] of meningitis (Inactive) History of opioid abuse Hydrocephalus (Inactive) Hydrocephalus Hypokalemia (Inactive) Low back pain (Inactive) Psoriasis (Chronic) Sepsis SIADH (syndrome of inappropriate ADH production) Syncope (Inactive) Tobacco use (Chronic) Surgical History No pertinent past surgical history Family History Other Diabetes Stroke Social History Preferred Language: [place] Communication Ability: Effective 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: No Beliefs That Will Affect Care: None marital status: Single Current Living Situation: Parent Current Living Situation Comment: lives with mother Other Information That Helps Us Care for You: No Feels Safe at Home: Yes Safety Concerns: Feels Safe At This Time Smoking Status: Current every day smoker Tobacco Type: cigarettes ; Cigarettes Per Day: 0.5 PPD ; Second Hand Exposure: No ; Hx Alcohol Use: No Hx Substance Use: Yes substance use type: heroin and opiates Substance Use Type Other:: states former user Last Used Substance: Unknown Physical Exam Physical Exam: Physical Exam: Constitutional: appearance nourished, ill appearing Ears, Nose, Mouth and Throat: mucous membranes moist, no injection and skin normal, eyes normal Cardiovascular: normal S-1 and S-2 and regular rate and rhythm Respiratory: clear to auscultation (CTA) and no rales, ronchi or wheeze Musculoskeletal: no peripheral edema Skin: no stigmata of neurocutaneous disease noted and normal and intact Eyes: extraocular muscles intact (EOMI) and pupils equal, round and reactive to light (PERRL) NEUROLOGIC EXAMINATION: Mental status: Alert and interactive Oriented to person Speech fluent with no evidence of aphasia Cranial Nerves smile eye brow raise symmtric Reflexes: Deep tendon reflexes were symmetrical and graded 2/5. Sensory: to light and cool touch Coordination: finger to nose no bi pass Gait/Stance: Posture normal. Gait normal: not assess Motor: Negative for pronator drift of out stretched arms with eyes closed. reaching tremor L>R Strength: biceps triceps hand acetylene cutter 5/5 bilaterally hip flex plantar flex ext 5/5 bilaterally Results & Data Vital Signs (Past 12 Hours) Vital Signs Temp Pulse Pulse Resp BP Pulse Ox 08/25/19 11:00 36.4 C L 77 16 139/94 96 08/25/19 08:00 78 08/25/19 07:00 36.4 C L 94 H 18 149/91 H 95 08/25/19 05:10 77 Laboratory Results Abnormal lab results 08/24/19 08/24/19 08/24/19 Range/Units 16:50 16:50 16:50 WBC 12.14 H (4.8-10.8) K/uL RBC 4.42 L (4.7-6.1) M/uL Hct 41.7 L (42-52) % Neut # (Auto) 9.39 H (1.4-6.5) K/uL [place] # (Auto) 0.88 H (0.11-0.59) K/uL Immature Gran # (Auto) 0.05 H (0.00-0.02) K/uL Sodium 131 L (136-145) mmol/L Potassium 2.7 L (3.5-5.1) mmol/L Chloride 89 L (98-107) mmol/L Carbon Dioxide 33 H (21-32) mmol/L BUN/Creatinine Ratio (10-20) Glucose 105 H (70-99) mg/dl Total Bilirubin 3.2 H (0.2-1) mg/dl Total Creatine Kinase 32 L (39-308) U/L Globulin 4.1 H (2.5-4.0) gm/dl TSH 0.088 L (0.300-4.500) uIu/ml Urine pH (4.5-7.5) Ur Specific [place] (1.000-1.030) Lyme Disease IgG Ab Positive A (Negative) Lyme Disease IgM Ab Equivocal A (Negative) 08/24/19 08/25/19 08/25/19 Range/Units 22:30 08:07 08:07 WBC (4.8-10.8) K/uL RBC 4.66 L (4.7-6.1) M/uL Hct (42-52) % Neut # (Auto) (1.4-6.5) K/uL [place] # (Auto) (0.11-0.59) K/uL Immature Gran # (Auto) (0.00-0.02) K/uL Sodium 134 L (136-145) mmol/L Potassium (3.5-5.1) mmol/L Chloride (98-107) mmol/L Carbon Dioxide (21-32) mmol/L BUN/Creatinine Ratio 9.5 L (10-20) Glucose (70-99) mg/dl Total Bilirubin 2.7 H (0.2-1) mg/dl Total Creatine Kinase (39-308) U/L Globulin (2.5-4.0) gm/dl TSH 0.111 L (0.300-4.500) uIu/ml Urine pH 8.5 H (4.5-7.5) Ur Specific [place] > 1.045 H (1.000-1.030) Lyme Disease IgG Ab (Negative) Lyme Disease IgM Ab (Negative) Diagnostic Findings MRI brain-1. No acute process. Stable hydrocephalus. Stable dural enhancement EEG-Limited study due to continuous patient movement and myogenic artifact. No epileptiform discharges or electrographic seizures are recorded. (1) Hydrocephalus Hydrocephalus type: other Qualified Code(s): G91.8 - Other hydrocephalus
[2019-08-25] MEDS ORDERED: PROMETHAZINE HCL 6.25 MG in SODIUM CHLORIDE 0.9% 50 ML IV PRN (13:12)
--- NOTE | 2019-08-25 14:30 | Electroencephalogram ---
EEG Procedure Note Date of Service August 25, 2019 Start / End Times Start Time: 13:33 End Time: 13:53 Referring Physician Maxime Arroyo History A 39-year-old male admitted with altered mental status. EEG performed for evaluation of epileptiform activity. Home Medication List Home Medications Medication Instructions Recorded Confirmed Type levetiracetam [Keppra] 750 mg PO BID 03/02/19 08/24/19 History escitalopram oxalate 10 mg PO DIRECTED 08/24/19 08/24/19 History escitalopram oxalate 20 mg PO DIRECTED 08/24/19 08/24/19 History galcanezumab-gnlm [Emgality Pen] 120 mg SUBCUT MONTHLY 08/24/19 08/24/19 History multivitamin with minerals [Men's 1 tab PO DAILY 08/24/19 08/24/19 History One Daily] Inpatient Medication List Acetaminophen (Tylenol) 650 mg PO Q4H PRN PRN Reason: Pain or Fever Stop: 09/23/19 23:48 Last Admin: 08/25/19 05:59 Dose: 650 mg Documented by: [id number] Doxycycline Hyclate (Vibramycin) 100 mg PO BID [facility] Stop: 09/03/19 23:48 Last Admin: 08/25/19 09:13 Dose: 100 mg Documented by: [id number] Admin: 08/25/19 00:56 Dose: 100 mg Documented by: [id number] Enoxaparin Sodium (Lovenox) 40 mg SQ Q24H [facility] Stop: 09/24/19 08:59 Last Admin: 08/25/19 09:13 Dose: 40 mg Documented by: [id number] Escitalopram Oxalate (Lexapro Tab) 20 mg PO DAILY [facility] Stop: 09/24/19 08:59 Last Admin: 08/25/19 09:13 Dose: 20 mg Documented by: [id number] Gadobutrol (Gadavist 65ml) 6.7 ml IV ONCE PRN PRN Reason: Interaction Checking Stop: 08/29/19 03:02 Last Admin: 08/25/19 02:40 Dose: 6.7 ml Documented by: [id number] Ceftriaxone Sodium 2,000 mg/ (Dextrose) 70 mls @ 100 mls/hr IV Q24H [facility]; Protocol Stop: 08/27/19 01:59 Last Infusion: 08/25/19 05:04 Dose: 0 mls/hr Documented by: [id number] Admin: 08/25/19 04:18 Dose: 100 mls/hr Documented by: [id number] Acetaminophen (Ofirmev) 1,000 mg in 100 mls @ 400 mls/hr IV Q8H PRN PRN Reason: Pain or Fever Stop: 08/26/19 12:25 Last Infusion: 08/25/19 14:22 Dose: 0 mls/hr Documented by: [id number] Admin: 08/25/19 14:02 Dose: 400 mls/hr Documented by: [id number] Promethazine HCl 6.25 mg/ (Sodium Chloride) 50.25 mls @ 201 mls/hr IV Q6H PRN PRN Reason: Nausea And Vomiting Stop: 09/24/19 13:11 Last Admin: 08/25/19 14:02 Dose: 201 mls/hr Documented by: [id number] Levetiracetam (Keppra) 750 mg PO BID [facility] Stop: 09/24/19 08:59 Last Admin: 08/25/19 09:13 Dose: 750 mg Documented by: [id number] Multivitamins/Minerals (Multivitamin W/ Minerals Tab) 1 tab PO DAILY@1200 IAN Stop: 09/24/19 11:59 Last Admin: 08/25/19 12:21 Dose: Not Given Documented by: [id number] Ondansetron HCl (Zofran) 4 mg IV Q6H PRN PRN Reason: Nausea Stop: 09/23/19 23:48 Last Admin: 08/25/19 12:20 Dose: 4 mg Documented by: [id number] Discontinued Medications Sodium Chloride (Nss 1000ml) 1,000 mls @ 999 mls/hr IV .Q1H1M [facility] Stop: 08/24/19 17:59 Last Infusion: 08/24/19 20:21 Dose: 0 mls/hr Documented by: [id number] Admin: 08/24/19 19:14 Dose: 999 mls/hr Documented by: [id number] Infusion: 08/24/19 18:56 Dose: 0 mls/hr Documented by: [id number] Admin: 08/24/19 17:01 Dose: 999 mls/hr Documented by: [id number] Potassium Chloride (K Dio / Wtr) 10 meq in 100 mls @ 100 mls/hr IV ONE ONE Stop: 08/24/19 20:09 Last Infusion: 08/24/19 20:21 Dose: 0 mls/hr Documented by: [id number] Admin: 08/24/19 19:14 Dose: 100 mls/hr Documented by: [id number] Potassium Chloride (K Dio / Wtr) 10 meq in 100 mls @ 100 mls/hr IV Q1H I[facility] Stop: 08/25/19 00:29 Last Infusion: 08/25/19 11:11 Dose: 0 mls/hr Documented by: [id number] Admin: 08/25/19 10:00 Dose: 100 mls/hr Documented by: [id number] Infusion: 08/25/19 09:26 Dose: 80 mls/hr Documented by: [id number] Infusion: 08/25/19 09:12 Dose: 80 mls/hr Documented by: [id number] Infusion: 08/25/19 07:00 Dose: 0 mls/hr Documented by: [id number] Infusion: 08/25/19 06:07 Dose: 80 mls/hr Documented by: [id number] Admin: 08/25/19 06:00 Dose: 100 mls/hr Documented by: [id number] Infusion: 08/25/19 06:00 Dose: 100 mls/hr Documented by: [id number] Admin: 08/25/19 05:00 Dose: 100 mls/hr Documented by: [id number] Lactated Ringer's (Lr) 1,000 mls @ 100 mls/hr IV .Q10H [facility] Stop: 08/25/19 19:48 Last Admin: 08/25/19 13:36 Dose: Not Given Documented by: [id number] Infusion: 08/25/19 13:35 Dose: 0 mls/hr Documented by: [id number] Infusion: 08/25/19 09:12 Dose: 100 mls/hr Documented by: [id number] Infusion: 08/25/19 07:00 Dose: 0 mls/hr Documented by: [id number] Admin: 08/25/19 00:46 Dose: 100 mls/hr Documented by: [id number] Ioversol (Optiray 320 125ml) 94 ml IV ONCE PRN PRN Reason: Interaction Checking Stop: 08/28/19 17:58 Last Admin: 08/24/19 18:00 Dose: 94 ml Documented by: [id number] Ondansetron HCl (Zofran) 4 mg IV NOW STA Stop: 08/24/19 15:56 Last Admin: 08/24/19 17:01 Dose: 4 mg Documented by: [id number] Potassium Chloride (Klor-Con M20) 40 meq PO NOW STA Stop: 08/24/19 23:50 Last Admin: 08/25/19 00:46 Dose: 40 meq Documented by: [id number] Description This is a 21 electrode EEG with a single channel dedicated to limited EKG. The electrodes were placed in accordance with the International 10-20 system. Report: At the onset of the EEG the patient is awake. The posterior dominant rhythm is not well seen as a record is predominately dominated by myogenic and movement artifact. the background does appear symmetric with at times interrupted by electrode pop artifact from patient movement. no stage 2 sleep transients are recorded. Photic stimulation does not induce any abnormalities. Impression: Limited study due to continuous patient movement and myogenic artifact. No epileptiform discharges or electrographic seizures are recorded.
[2019-08-25] MEDS: D5NSS + 20MEQ KCL 20 MEQ/1,000 ML BAG IV SCH ×3 (14:32→23:32)
--- NOTE | 2019-08-25 15:33 | Electrocardiogram Report ---
Test Reason : Blood Pressure : / mmHG Vent. Rate : 095 BPM Atrial Rate : 095 BPM P-R Int : 144 ms QRS Dur : 078 ms QT Int : 352 ms P-R-T Axes : 048 006 -24 degrees QTc Int : 442 ms Normal sinus rhythm Minimal voltage criteria for LVH, may be normal variant Abnormal ECG When compared with ECG of 02-MAR-2019 21:56, Vent. rate has increased BY 41 BPM Nonspecific T wave abnormality now evident in Lateral leads QT has lengthened Confirmed by Torey Molina ([id number]) on 08/25/2019 3:33:18 PM Referred By: REFERRED SELF Confirmed By:Torey Molina
[2019-08-25] MEDS ORDERED: MoRPHine SULFATE 4 MG/ML 1 ML CARP\\VIAL IV STA (16:37)
[2019-08-25] MEDS: HydrALAZINE HCL 20 MG/ML VIAL IV PRN (17:03)
--- NOTE | 2019-08-25 18:42 | Hospitalist Progress Note ---
Date of Service August 25, 2019 Assessment & Plan (1) Altered mental status: (2) Headache: (3) History of Lyme disease: (4) History of meningitis: (5) Hydrocephalus: (6) Nausea: (7) Vomiting: Patient with acutely altered mental status & headache x 1 week per his mother. Uncertain etiology WBC count slightly elevated. Consider infection as possible cause. 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 Will await WB. Anaplasma smear pending as well. Start Ceftriaxone and Doxycycline pending results. UA & Cx pending. CT of head and abdomen/pelvis unrevealing. With hx of meningitis, anoxic brain injury, brain abscess, and hydrocephalus, will also check MRI Consult Neurology Check Keppra level Aspiration, fall, & seizure precautions No current nuchal rigidity. Monitor for signs of meningitis and consider LP if mentation does not improve. (8) HTN (hypertension): BP elevated in ED. Monitor on Med/Surg with Tele (9) SIADH (syndrome of inappropriate ADH production): (10) Alkalosis: (11) Hyponatremia: (12) Hypokalemia: Chronic SIADH, but very dehydrated on exam. Worsened hyponatremia and also hypokalemia likely secondary to vomiting, decreased appetite, and poor PO intake overall. Lactated ringer's x 2 bags PO Potassium 40 mEq x 1. Continue PO intake as well as tolerated (13) Hyperbilirubinemia: Elevated bilirubin level to 3.2 with otherwise normal LFTs, but + vomiting Check RUQ US. Recheck CMP in AM (14) Subclinical hyperthyroidism: TSH low. T4 normal. Likely subclinical hyperthyroidism in the setting of acute issue. Recheck TSH/T4 tomorrow. Consider further treatment/workup pending repeat labs (15) History of heroin use: (16) History of opioid abuse: Tox screen pending. Consider relapse as possible cause of altered mental status. (17) DVT prophylaxis: Lovenox (18) Altered mental status: 39-year-old male with history of Lyme meningitis, with hydrocephalus, brain abscess, anoxic encephalopathy, seizure; SIADH, history of drug abuse presented with altered mental status times few weeks. Altered mental status, unclear etiology in the setting of chronic hydrocephalus, anoxic encephalopathy, seizure secondary to Lyme meningitis Patient's family, the patient has been having few week history of progressive confusion, gait disturbance, and urinary incontinence CT head and brain MRI: No acute process EEG: No epileptogenic potential Lyme screen positive, Western blot pending, anaplasmosis pending--> on ceftriaxone plus doxycycline Afebrile, no leukocytosis--> doubt meningitis Urine drug screen negative, per family patient has no access to illegal drugs or alcohol--> doubt toxicologic etiology Patient noted to be withdrawn, poor sleep more, poor appetite for the past few weeks, his father and within the past 6 months --> possible underlying depression with psychosis?, Will consult psychiatry service Neurology service also consulted, discussed with Dr. Grant Wright--> doubt normal pressure hydrocephalus, recommended CK level, CRP, anti-TPO antibodies Persistent nausea and vomiting, episode of hematemesis Family reports patient has been vomiting anything he eats for the past few weeks, also had an episode of hematemesis a few days ago Hemoglobin 15 N.p.o. status, IV fluids, Protonix IV twice a day, consult GI Hypertension No history of hypertension in the past Autonomic instability, possible drug withdrawal? Family reports patient has no access to illicit drugs PRN hydralazine, 1 dose of amlodipine 5 mg p.o. given Monitor closely Hyponatremia and hypokalemia Likely secondary to hypovolemia, poor intake Replaced, monitor Elevated total bilirubin Improving Ultrasound: Cholelithiasis and hepatic steatosis Monitor Subclinical hypothyroidism Check thyroid ultrasound Follow thyroid function tests DVT prophylaxis Hold Lovenox for now secondary to elevated blood pressure Reevaluate daily Disposition Pending Usually lives with mother Mariza Will need PT and OT evaluation Admission and Anticipated Discharge Date Admission Date: August 24, 2019 Subjective Follow-up for altered mental status Seen resting in bed, not in distress, sleeping but easily awakened Oriented to person and place Answers some questions appropriately, mostly says I do not know, I do not remember, just asked my mother Reports mild right-sided headache but no change with vision, focal neurologic deficits Reports some mild nausea but no abdominal pain No chest pain, shortness of breath, palpitations, dizziness More information obtained from patient's mother and niece over the phone They report that patient has been having progressive cognitive decline over the past few months Recently, has been noted to be withdrawn, prefers to sleep more, with very poor appetite Also, the patient has been noted to have a few week history of vomiting, and an episode of hematemesis a few days ago per the niece They highly doubt the patient has been experimenting with any illicit drugs or drinking alcohol Review of Systems Review of Systems: All systems reviewed & are unremarkable except as noted in HPI & below Physical Exam Physical Exam: General- oriented x 2, not in distress, speaks in sentences with no effort or accessory muscle use Appears weak Head- atraumatic Eyes- PERRL, EOMI, anicteric ENT- oropharynx clear Neck- supple, no JVD, no adenopathy, no thyromegaly; carotids +2/2, no bruits appreciated Lungs- clear to auscultation bilaterally, no rales/wheezes Heart- normal rate, regular rhythm; no murmur, no gallop, no rub appreciated Abdomen- normal bowel sounds, nondistended, soft, nontender, no masses or hepatosplenomegaly Extremities- no pretibial edema, no calf tenderness; peripheral pulses intact Neuro- alert, oriented x 2; CN 2-12 grossly intact; motor 5/5 bilaterally;sensation 100% on all extremities; no other gross focal neurologic deficits Skin- warm & dry Psych- flat affect, no hallucinations Results & Data Results & Data ([facility]) Vital Signs (Past 12 Hours) Vital Signs Temp Pulse Pulse Resp BP BP Pulse Ox 08/25/19 15:58 36.7 C 109 H 18 180/109 H 94 08/25/19 15:30 36.5 C 08/25/19 14:24 36.4 C L 08/25/19 11:00 36.4 C L 77 16 139/94 96 08/25/19 08:00 78 08/25/19 07:00 36.4 C L 94 H 18 149/91 H 95 (1) Hydrocephalus Hydrocephalus type: other Qualified Code(s): G91.8 - Other hydrocephalus (2) HTN (hypertension) Hypertension type: unspecified Qualified Code(s): I10 - Essential (primary) hypertension
--- NOTE | 2019-08-25 19:14 | XRay Report ---
XR KUB/Abdomen 1 view CLINICAL HISTORY: vomiting COMPARISON STUDY: CT scan dated 08/24/2019 FINDINGS: There is no pathologic bowel dilatation. There are punctate calcifications project over the lower pole the left kidney consistent with calculi. IMPRESSION: 1. Nonobstructive bowel gas pattern 2. Left-sided nephrolithiasis ACT 112: Negative or not required by law. Electronically signed by: Bernardo Boateng M.D. 08/25/2019 7:13 PM
[2019-08-25] MEDS ORDERED: HydrALAZINE HCL 20 MG/ML VIAL IV STA (19:43)
[2019-08-25] MEDS ORDERED: PROMETHAZINE HCL 6.25 MG in SODIUM CHLORIDE 0.9% 50 ML IV STA (19:48)
[2019-08-25] MEDS ORDERED: AMLODIPINE BESYLATE 5 MG TAB PO ONE (20:00)
[2019-08-25 21:12] LABS: C Reactive Protein 0.7 mg/dl (0-0.29)
[2019-08-25] MEDS: PANTOprazole 40 MG in SYRINGE 0 ML IV SCH (21:21)
[2019-08-26] MEDS: MoRPHine SULFATE 4 MG/ML 1 ML CARP\\VIAL IV PRN ×3 (01:37→23:48)
[2019-08-26] MEDS: cefTRIAXone SODIUM 2,000 MG in DEXTROSE 5% 50 ML IV SCH (02:07)
[2019-08-26] MEDS: D5NSS + 20MEQ KCL 20 MEQ/1,000 ML BAG IV SCH ×2 (08:21→16:23)
[2019-08-26] MEDS: ESCITALOPRAM OXALATE 10 MG TAB PO SCH (08:23)
[2019-08-26] MEDS: DOXYCYCLINE HYCLATE 100 MG CAP PO SCH ×2 (08:23→21:10)
[2019-08-26] MEDS: levETIRAcetam 250 MG TAB PO SCH ×2 (08:23→21:10)
[2019-08-26] MEDS: PANTOprazole 40 MG in SYRINGE 0 ML IV SCH ×2 (08:30→21:10)
[2019-08-26] MEDS: ACETAMINOPHEN 325 MG TAB PO PRN ×2 (08:35→21:38)
[2019-08-26 10:27] LABS: Basophils # (auto) 0.01 K/uL (0-0.2); Basophils % (auto) 0.1 %; Eosinophils # (auto) 0.02 K/uL (0-0.5); Eosinophils % (auto) 0.2 %; Hematocrit (blood only) 38.4 % (42-52); Hemoglobin 13.8 g/dL (14.0-18.0); Immature Granulocytes # (auto) 0.09 K/uL (0.00-0.02); Immature Granulocytes % (auto) 0.7 %; Lymphocytes # (auto) 1.32 K/uL (1.2-3.4); Mean Corpuscular Hemoglobin 34.5 pg (25-34); Mean Corpuscular Hgb Conc 35.9 g/dL (32-36); Mean Platelet Volume 9.3 fL (7.4-10.4); Monocytes # (auto) 1.42 K/uL (0.11-0.59); Monocytes % (auto) 11.8 %; Neutrophils # (auto) 9.16 K/uL (1.4-6.5); Neutrophils % (auto) 76.2 %; Platelet Count 248 K/uL (130-400); RDW Coefficient of Variation 13.1 % (11.5-14.5); RDW Standard Deviation 45.6 fL (36.4-46.3); White Blood Count 12.02 K/uL (4.8-10.8)
[2019-08-26 10:44] LABS: Albumin Level 3.9 gm/dl (3.4-5.0); Calcium 9.4 mg/dl (8.5-10.1); Creatinine Clr Calc Pharmacy 117.5 ml/min; Est GFR (African American) 130.4; Est GFR (Non-African American) 112.5; Potassium 3.4 mmol/L (3.5-5.1)
[2019-08-26 10:51] LABS: Albumin Globulin Ratio 1.1 (0.9-2); Globulin 3.6 gm/dl (2.5-4.0); Total Protein 7.5 gm/dl (6.4-8.2)
--- NOTE | 2019-08-26 11:14 | Hospitalist Progress Note ---
Date of Service August 26, 2019 Assessment & Plan (1) Altered mental status: (2) Headache: (3) History of Lyme disease: (4) History of meningitis: (5) Hydrocephalus: (6) Nausea: (7) Vomiting: Patient with acutely altered mental status & headache x 1 week per his mother. Uncertain etiology WBC count slightly elevated. Consider infection as possible cause. 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 Will await WB. Anaplasma smear pending as well. Continue Ceftriaxone and Doxycycline UA & Cx pending. CT of head and abdomen/pelvis unrevealing. With hx of meningitis, anoxic brain injury, brain abscess, and hydrocephalus, Negative MRI Neurology on case Check Keppra level Aspiration, fall, & seizure precautions No current nuchal rigidity. Monitor for signs of meningitis and consider LP if mentation does not improve. (8) HTN (hypertension): BP elevated in ED. Monitor on Med/Surg with Tele (9) SIADH (syndrome of inappropriate ADH production): (10) Alkalosis: (11) Hyponatremia: (12) Hypokalemia: Chronic SIADH, but very dehydrated on exam. Worsened hyponatremia and also hypokalemia likely secondary to vomiting, decreased appetite, and poor PO intake overall. Lactated ringer's x 2 bags PO Potassium 40 mEq x 1. Continue PO intake as well as tolerated (13) Hyperbilirubinemia: Elevated bilirubin level to 3.2 with otherwise normal LFTs, but + vomiting RUQ US-fatty Liver, Gallstones (14) Subclinical hyperthyroidism: TSH low. T4 normal. Likely subclinical hyperthyroidism in the setting of acute issue. (15) History of heroin use: (16) History of opioid abuse: Tox screen pending. Consider relapse as possible cause of altered mental status. (17) DVT prophylaxis: Lovenox Labs checked ROS-No Headache, No Visual Changes, No Nausea, No Vomiting, No Fever, No Chills, No Neck Pain or Stiffness, No Chest Pain, No Palpitations, No SOB, No AUGUSTE, No Cough, No Sputum, No Wheezing, No Abdominal Pain, No Diarrhea, No Hematemesis, No Hemoptysis, No Unexpected Weight Loss, No Flank pain, No Melena, No Hematochezia, No Frequency, No Urgency, No Burning, No Hematuria, No Rashes, No Diaphoresis. Appetite is Normal Physical Exam Gen-AAO x 3, NAD, Afebrile Head-NCAT, EOMI, PERRLA, Anicteric Sclera, No Posterior Pharyngeal Erythema Neck-Supple, No JVD, No Thyromegaly, No Masses, No LAD, No Bruits Lungs-Clear to Auscultation Bilaterally, No Rales, No Rhonchi, No Wheezing, No Crepitus Chest-No S4, +S1, +S2, No S3, No Murmurs, No Rubs, No Gallops, No Ectopy Abdomen-Soft, Bowel Sounds Present, Non Tender, Non Distended, No Hepatomegaly, No Splenomegaly, No Palpable Masses, No Rebound, No Rigidity, No Guarding Musculoskeletal-Full Range of Motion Bilaterally, No CVAT Extremities-No Cyanosis, No Clubbing, No Edema Nuero-Cranial Nerves II-XII grossly intact, Motor WNL, DTRs WNL, Strength WNL, Non Focal Psych-Normal Mood Admission and Anticipated Discharge Date Admission Date: August 24, 2019 Results & Data Results & Data ([facility]) Vital Signs (Past 12 Hours) Vital Signs Temp Pulse Pulse Resp BP Pulse Ox 08/26/19 08:30 97 H 147/97 H 08/26/19 07:00 37.0 C 103 H 18 157/101 H 96 08/26/19 02:30 37.3 C 104 H 22 149/100 H 96 08/26/19 00:10 133 H (1) Hydrocephalus Hydrocephalus type: other Qualified Code(s): G91.8 - Other hydrocephalus (2) HTN (hypertension) Hypertension type: unspecified Qualified Code(s): I10 - Essential (primary) hypertension
--- NOTE | 2019-08-26 11:32 | Psychiatric Consultation ---
Date of Consultation August 26, 2019 Impression / Recommendations Impression Dr. Eleazar Levy was directly involved in review and discussion of the patient's case and participated in medical decision making regarding treatment recommendations. RECOMMENDATIONS: 08/25 - Unable to offer detailed psychiatric assessment of patient at this time, as he remains largely sedated and is unable to maintain attention necessary to participate in thorough discussion. - Will reduce escitalopram to 10mg daily. Cannot rule out possible serotonin toxicity in the setting of rapid titration of SSRI in the last week, though unable to perform adequate examination or gather information from patient due to level of sedation. - Not able to adequately assess the presence of depression with psychotic features at this time. Although this cannot be ruled out entirely, it is re commended that work-up for AMS be continued as his history suggests there may be several other causes contributing to AMS. - Collateral information was obtained from patient's niece, who denied previ ous psychiatric history. Lexapro was started ~1 week ago, and niece reports of patient's father and the mother of the patient's children in the last 6 months. - Will attempt to re-evaluate patient when he is better able to participate in conversation. Will assess patient's willingness for outpatient psychiatric treatment, though this does not seem to be the most acute concern at this point in his hospitalization. - Will continue to follow. Please reach out to our service with any additional questions or updates. (1) Altered mental status: Psych History Identifying Data 39-year-old male admitted medically on 08/24/2019 after presenting to the ED with altered mental status x 1 week. He also reported decreased appetite, vomiting, and headache. Psychiatric consultation requested to evaluate patient for AMS and history of depression. Chief Complaint "Hi. I'm tired." History of Present Illness Scot Roa is a 39-year-old male admitted medically on 08/24/2019 after presenting to the ED with altered mentals status for the past week. It was also reported that patient had been experiencing headache, vomiting, and decreased appetite at home. Pt does have a history of Lyme meningitis as well as history of polysubstance abuse, though UDS is negative and mother denies known substance use recently. Psychiatric consultation was requested to evaluate patient for AMS and history of depression. Pt was recently started on escitalopram by his PCP, instructed to take 10mg daily x 7 days and then increase to 20mg daily. Mother and niece have been available to provide collateral information. Pt declined initial encounter with this provider due to fatigue, despite rather persistent request for at least a brief conversation. This provider did return later in the afternoon and again found the patient to be sleeping. He did briefly awaken with verbal stimuli. He reported ongoing fatigue, but did verbalize more willingness to talk. Unfortunately, the patient was unable to maintain attention for a significant period of time. This provider did explain our role and asked him about his current psychotropic medication regimen. Pt could not provide the name of the doctor who prescribes his medications, but could confirm only recently starting the escitalopram. He denied A/V hallucinations or possibility that he took too much of any of his prescription medications. Pt had to be awoken several times during our conversation. Pt was asked questions related to orientation. When asked the date, he states "I don't know right off hand". He was unable to verbalize month or year. He is aware that he is at the hospital in [place]. Pt was informed that we had recommended reducing his escitalopram back to 10mg for the time being, and he nodded upon hearing this. Pt denied other needs or concerns at this time and was encouraged to reach out to our staff as needed. He was informed that we would be making ongoing attempts to speak with him. Past Psychiatric History Current Psychiatric Diagnosis: Depression Outpatient Services: Psychotropic medications prescribed by his PCP Previous Psych Admissions: None, at least per niece's report Past Medication Trials: Per external medication records: 1. Lexapro 2. Remeron 3. Elavil 4. Suboxone Allergies Allergy/AdvReac Type Severity Reaction Status Date / Time Penicillins Allergy Unknown Unknown Verified 08/24/19 17:10 Home Medications Home Medications Medication Instructions Recorded Confirmed Type levetiracetam [Keppra] 750 mg PO BID 03/02/19 08/24/19 History escitalopram oxalate 10 mg PO DIRECTED 08/24/19 08/24/19 History escitalopram oxalate 20 mg PO DIRECTED 08/24/19 08/24/19 History galcanezumab-gnlm [Emgality Pen] 120 mg SUBCUT MONTHLY 08/24/19 08/24/19 History multivitamin with minerals [Men's 1 tab PO DAILY 08/24/19 08/24/19 History One Daily] Family History Mother with anxiety; brother with alcoholism. No known family history of suicide attempts. Substance Abuse History Per niece, patient has been sober >1 year. He does have a history of opiate/heroin addiction beginning at age 34y/o. Niece does not believe the patient has participated in IOP or inpatient D&A rehab. Pt is an everyday smoker. Personal History Living Arrangements: Home (in [place]) Highest Grade Completed: Did Not Graduate High School (completed 11th grade) Employment Status: Unknown (worked in [employer] ~6 months ago) Marital Status: Number Of Children: 6 - estranged relationship Beliefs That Will Affect Care: None History of Legal Problems: Mandated to pay child support. Patient History Medical History Abscess of forearm, left (Inactive) Brain abscess (Inactive) Brain abscess Heroin overdose (Inactive) History of heroin use (Resolved) History of lumbar puncture (Chronic) 12/2018 - [facility] [place] History of meningitis (Inactive) History of opioid abuse Hydrocephalus (Inactive) Hydrocephalus Hypokalemia (Inactive) Low back pain (Inactive) Psoriasis (Chronic) Sepsis SIADH (syndrome of inappropriate ADH production) Syncope (Inactive) Tobacco use (Chronic) Surgical History No pertinent past surgical history Family History Other Diabetes Stroke Social History Preferred Language: Pashto Communication Ability: Effective Log Carrier Operator Required: No Beliefs That Will Affect Care: None marital status: Single Current Living Situation: Parent Current Living Situation Comment: lives with mother Other Information That Helps Us Care for You: No Feels Safe at Home: Yes Safety Concerns: Feels Safe At This Time Smoking Status: Current every day smoker Tobacco Type: cigarettes ; Cigarettes Per Day: 0.5 PPD ; Second Hand Exposure: No ; Hx Alcohol Use: No Hx Substance Use: Yes substance use type: heroin and opiates Substance Use Type Other:: states former user Last Used Substance: Unknown Physical Exam Psychiatric: Orientation: oriented to person and oriented to place; + not alert (sedated, brief responses but limited willingness for interview) and + not oriented to time ("I don't know right off hand" - could not provide month or year) Apperance: appropriately dressed (for setting, wearing hospital gown) and + disheveled; + inappropriately groomed and + did not appear stated age (appearing older than stated age) Eye Contact: + poor eye contact (only briefly opens eyes) Motor Behavior: no abnormal motor movements (observed while laying in bed) Speech: normal rate/rhythm/volume of speech (only brief responses to questions) Vital Signs (Past 24 Hours): Last Vital Signs Temp 36.8 C 08/26/19 11:00 Pulse 94 H 08/26/19 11:00 Resp 18 08/26/19 11:00 BP 163/109 H 08/26/19 11:00 Pulse Ox 97 08/26/19 11:00 Review of Systems Pt unable to participate in a more thorough review of systems due to level of fatigue. He does admit to feeling tired. He does not verbalize any other physical complaints at this time. Results & Data ([facility]) Medications Administered Acetaminophen (Tylenol) 650 mg PO Q4H PRN PRN Reason: Pain or Fever Stop: 09/23/19 23:48 Last Admin: 08/26/19 08:35 Dose: 650 mg Documented by: [id number] Admin: 08/25/19 05:59 Dose: 650 mg Documented by: [id number] Doxycycline Hyclate (Vibramycin) 100 mg PO BID [facility] Stop: 09/03/19 23:48 Last Admin: 08/26/19 08:23 Dose: 100 mg Documented by: [id number] Admin: 08/25/19 20:09 Dose: 100 mg Documented by: [id number] Admin: 08/25/19 09:13 Dose: 100 mg Documented by: [id number] Admin: 08/25/19 00:56 Dose: 100 mg Documented by: [id number] Escitalopram Oxalate (Lexapro Tab) 20 mg PO DAILY IAN Stop: 09/24/19 08:59 Last Admin: 08/26/19 08:23 Dose: 20 mg Documented by: [id number] Admin: 08/25/19 09:13 Dose: 20 mg Documented by: [id number] Gadobutrol (Gadavist 65ml) 6.7 ml IV ONCE PRN PRN Reason: Interaction Checking Stop: 08/29/19 03:02 Last Admin: 08/25/19 02:40 Dose: 6.7 ml Documented by: [id number] Hydralazine HCl (Hydralazine Hcl) 10 mg IV Q6H PRN PRN Reason: hypertension Stop: 09/24/19 16:44 Last Admin: 08/25/19 17:03 Dose: 10 mg Documented by: [id number] Ceftriaxone Sodium 2,000 mg/ (Dextrose) 70 mls @ 100 mls/hr IV Q24H IAN; Protocol Stop: 08/27/19 01:59 Last Infusion: 08/26/19 02:49 Dose: 0 mls/hr Documented by: [id number] Admin: 08/26/19 02:07 Dose: 100 mls/hr Documented by: [id number] Infusion: 08/25/19 05:04 Dose: 0 mls/hr Documented by: [id number] Admin: 08/25/19 04:18 Dose: 100 mls/hr Documented by: [id number] Acetaminophen (Ofirmev) 1,000 mg in 100 mls @ 400 mls/hr IV Q8H PRN PRN Reason: Pain or Fever Stop: 08/26/19 12:25 Last Infusion: 08/25/19 14:22 Dose: 0 mls/hr Documented by: [id number] Admin: 08/25/19 14:02 Dose: 400 mls/hr Documented by: [id number] Promethazine HCl 6.25 mg/ (Sodium Chloride) 50.25 mls @ 201 mls/hr IV Q6H PRN PRN Reason: Nausea And Vomiting Stop: 09/24/19 13:11 Last Infusion: 08/25/19 14:33 Dose: 0 mls/hr Documented by: [id number] Admin: 08/25/19 14:02 Dose: 201 mls/hr Documented by: [id number] Potassium Chloride/Dextrose/Sod Cl (D5nss + 20meq Kcl) 20 meq in 1,000 mls @ 125 mls/hr IV .Q8H IAN Stop: 09/24/19 13:44 Last Admin: 08/26/19 08:21 Dose: 125 mls/hr Documented by: [id number] Infusion: 08/26/19 06:32 Dose: 125 mls/hr Documented by: [id number] Admin: 08/25/19 23:32 Dose: Not Given Documented by: [id number] Admin: 08/25/19 22:32 Dose: 125 mls/hr Documented by: [id number] Infusion: 08/25/19 22:32 Dose: 125 mls/hr Documented by: [id number] Admin: 08/25/19 14:32 Dose: 125 mls/hr Documented by: [id number] Pantoprazole Sodium 40 mg/ (Syringe) 10 mls @ 5 mls/min IV BID [facility] Stop: 09/24/19 20:59 Last Admin: 08/26/19 08:30 Dose: 5 mls/min Documented by: [id number] Admin: 08/25/19 21:21 Dose: 5 mls/min Documented by: [id number] Levetiracetam (Keppra) 750 mg PO BID [facility] Stop: 09/24/19 08:59 Last Admin: 08/26/19 08:23 Dose: 750 mg Documented by: [id number] Admin: 08/25/19 20:09 Dose: 750 mg Documented by: [id number] Admin: 08/25/19 09:13 Dose: 750 mg Documented by: [id number] Morphine Sulfate (Morphine Sulfate) 3 mg IV Q6H PRN PRN Reason: Severe Pain Stop: 09/08/19 16:39 Last Admin: 08/26/19 01:37 Dose: 3 mg Documented by: [id number] Multivitamins/Minerals (Multivitamin W/ Minerals Tab) 1 tab PO DAILY@1200 [facility] Stop: 09/24/19 11:59 Last Admin: 08/25/19 12:21 Dose: Not Given Documented by: [id number] Ondansetron HCl (Zofran) 4 mg IV Q6H PRN PRN Reason: Nausea Stop: 09/23/19 23:48 Last Admin: 08/25/19 12:20 Dose: 4 mg Documented by: [id number] Coding Level of Care Code 24710 [facility] Intl Hosp Care Lvl 1 Diagnoses Altered mental status R41.82
[2019-08-26] MEDS: HydrALAZINE HCL 20 MG/ML VIAL IV PRN ×2 (12:04→21:13)
[2019-08-26] MEDS: CEROVITE ADV FORMULA TAB PO SCH (12:06)
--- NOTE | 2019-08-26 12:24 | Gastrointestinal Consultation ---
Date of Consultation August 26, 2019 Assessment & Plan (1) Altered mental status: (2) Nausea and vomiting: Pt is a 39 y/o male admitted currently for AMS, w unclear etiology. GI was consulted for n/v, and reported hematemesis. Last n/v yesterday w bilious emesis per RNs report. Since made NPO no more n/v. No signs of izaiah Gi bleeding otherwise. Blood ct, BUN normal past 2 days. - May try restarting diet - No plans for endoscopic workup at this time - Monitor blood ct - May continue PPI coverage for now - Antiemetics prn - Defer AMS workup to primary team and Neurology - Pls recall us if any more n/v or s/s of GI bleeding. Supervising Physician Co-Signing Physician Notes I saw and evaluated the patient. We were consulted with with regard to coffee- ground emesis. It appears that this is not recurred since his admission nor has there been passage of melena or decrease in his hemoglobin hematocrit. Physical examination Thin male in no obvious distress Impression: Patient with coffee-ground emesis but no evidence of recurrent bleeding. At the present time I would not recommend endoscopic intervention as he does not appear to be manifesting an active gastrointestinal hemorrhage. The patient's mental status is probably the paramount importance we will defer to the internal medicine service for evaluation of this. Recommendations Protonix 40 mg daily Continue to trend blood count Please call with any questions or concerns, GI to sign off History of Present Illness Reason for Consultation: N/V, hematemesis Requesting Physician: Dr. Tay Blackwell Attending Physician: Dr. Edie Wang History of Present Illness Pt is a 39 y/o male currently admitted for AMS of unclear etiology. ? hx of Lymes w Lymes meningitis, hydrocephalus and seizures. Neurology following. GI w as consulted as pt was having n/v, family reported hematemesis a few days ago. Pt is a poor historian perhaps contributed by his AMS. Chart reviewed. H/H been normal last 2 days. BUN normal as well. Per RN yesterday pt was having persistent n/v despite antiemetics and was having bilious emesis. No signs of coffee ground emesis or hematemesis noted. Last BM 08/23. He had been made NPO currently, no n/v today. Noted sole elevation of Tbili on LFTs. Abd imaging w CT and u/s showed signs of cholelithiasis and hepatic steatosis but otherwise unremarkable. His abd exam is benign today Allergies Allergy/AdvReac Type Severity Reaction Status Date / Time Penicillins Allergy Unknown Unknown Verified 08/24/19 17:10 Home Medications Home Medications Medication Instructions Recorded Confirmed Type levetiracetam [Keppra] 750 mg PO BID 03/02/19 08/24/19 History escitalopram oxalate 10 mg PO DIRECTED 08/24/19 08/24/19 History escitalopram oxalate 20 mg PO DIRECTED 08/24/19 08/24/19 History galcanezumab-gnlm [Emgality Pen] 120 mg SUBCUT MONTHLY 08/24/19 08/24/19 History multivitamin with minerals [Men's 1 tab PO DAILY 08/24/19 08/24/19 History One Daily] Patient History Medical History Abscess of forearm, left (Inactive) Brain abscess (Inactive) Brain abscess Heroin overdose (Inactive) History of heroin use (Resolved) History of lumbar puncture (Chronic) 12/2018 - [facility] [place] History of meningitis (Inactive) History of opioid abuse Hydrocephalus (Inactive) Hydrocephalus Hypokalemia (Inactive) Low back pain (Inactive) Psoriasis (Chronic) Sepsis SIADH (syndrome of inappropriate ADH production) Syncope (Inactive) Tobacco use (Chronic) Surgical History No pertinent past surgical history Family History Other Diabetes Stroke Social History Preferred Language: Cymraes Communication Ability: Effective Employment Advisor Required: No Beliefs That Will Affect Care: None marital status: Single Current Living Situation: Parent Current Living Situation Comment: lives with mother Other Information That Helps Us Care for You: No Feels Safe at Home: Yes Safety Concerns: Feels Safe At This Time Smoking Status: Current every day smoker Tobacco Type: cigarettes ; Cigarettes Per Day: 0.5 PPD ; Second Hand Exposure: No ; Hx Alcohol Use: No Hx Substance Use: Yes substance use type: heroin and opiates Substance Use Type Other:: states former user Last Used Substance: Unknown Review of Systems Review of Systems: Unobtainable due to cognitive status Physical Exam Constitutional: well groomed, cooperative and comfortable Eyes: PERRL, conjunctivae normal, anicteric sclerae ENMT: external ear and nose normal, oropharynx normal Respiratory: normal respiratory effort, lungs clear to auscultation Cardiovascular: RRR, no murmur, no edema Gastrointestinal (Abdomen): normal bowel sounds, soft, nontender, no hepatosplenomegaly Skin: no rashes, warm and dry no jaundice Psychiatric: Orientation: oriented to person and cooperative Apperance: + disheveled Drowsy Lymphatic: no lymphedema Results & Data ([facility]) Vital Signs (Past 12 Hours) Vital Signs Temp Pulse Resp BP Pulse Ox 08/26/19 11:00 36.8 C 94 H 18 163/109 H 97 08/26/19 08:30 97 H 147/97 H 08/26/19 07:00 37.0 C 103 H 18 157/101 H 96 08/26/19 02:30 37.3 C 104 H 22 149/100 H 96
--- NOTE | 2019-08-26 16:05 | Neurology Progress Note ---
Date of Service August 26, 2019 Assessment & Plan (1) History of Lyme disease: (2) Altered mental status: (3) Headache: Mr. Roa is a 39 year old male with history of lyme meningitis s/p treatment with presumed residual ventriculomegaly which appears a stable on recent MRI brain imaging and history of chronic daily headaches admitted for complaint of headache and encephalopathy. Mental status improved. Patient does not appear encephalopathic. Concern for possible substance withdrawal or medication AE which was contributing to his behavior changes. Would stop the Lexapro. In regards to his headaches as inpatient can give Toradol 30 mg IV Q8hr, Reglan 10 mg IV Q8hr, and Benadryl 25 mg IV Q8hr. Patient is on Emgality as outpatient for his chronic headaches. Please call with any further questions or concerns. Admission and Anticipated Discharge Date Admission Date: August 24, 2019 Subjective Patient was seen and examined. Mentation improved since yesterday. He is ching kative and following commands today. Vital signs improved. Continues to complain of headache which is holocephalic. Notes 10 now and asking if he can sleep. Physical Exam Physical Exam: Patient is awake and quick to respond when his name is called. He is following commands. Oriented to month, place, and age. No tremor or myoclonic jerks. Moving all 4 extremities. Speech is clear. Eyes midline. He appears dishelved and less paranoid todya. Results & Data ([facility]) Vital Signs (Past 12 Hours) Vital Signs Temp Pulse Pulse Resp BP Pulse Ox 08/26/19 15:41 36.6 C 78 20 118/80 96 08/26/19 14:54 89 08/26/19 14:12 99 H 131/93 08/26/19 11:00 36.8 C 94 H 18 163/109 H 97 08/26/19 08:30 97 H 147/97 H 08/26/19 08:00 97 H 08/26/19 07:00 37.0 C 103 H 18 157/101 H 96
[2019-08-27] MEDS: D5NSS + 20MEQ KCL 20 MEQ/1,000 ML BAG IV SCH ×3 (00:20→16:36)
[2019-08-27] MEDS ORDERED: DiphenhydrAMINE HCL 50 MG/ML VIAL IV SCH (07:30)
[2019-08-27] MEDS ORDERED: METOCLOPRAMIDE HCL INJ 5 MG/ML 2 ML VIAL IV SCH (07:30)
[2019-08-27] MEDS ORDERED: PROMETHAZINE HCL 6.25 MG in SODIUM CHLORIDE 0.9% 50 ML IV PRN (07:37)
--- NOTE | 2019-08-27 07:53 | Hospitalist Progress Note ---
Date of Service August 27, 2019 Assessment & Plan (1) Altered mental status: (2) Headache: (3) History of Lyme disease: (4) History of meningitis: (5) Hydrocephalus: (6) Nausea: (7) Vomiting: Patient with acutely altered mental status & headache x 1 week per his mother. Uncertain etiology WBC count slightly elevated. Consider infection as possible cause. 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 Will await WB. Anaplasma smear is negative. Continue Ceftriaxone and Doxycycline UA & Cx pending. CT of head and abdomen/pelvis unrevealing. With hx of meningitis, anoxic brain injury, brain abscess, and hydrocephalus, Negative MRI Neurology on case, rec DC MSO4 and start Toradol, Reglan, and Benadryl for pain, and stopping Lexapro Aspiration, fall, & seizure precautions No current nuchal rigidity. (8) HTN (hypertension): BP elevated in ED. DC Tele (9) SIADH (syndrome of inappropriate ADH production): (10) Alkalosis: (11) Hyponatremia: (12) Hypokalemia: Chronic SIADH, but very dehydrated on exam. Worsened hyponatremia and also hypokalemia likely secondary to vomiting, decreased appetite, and poor PO intake overall. Lactated ringer's x 2 bags PO Potassium 40 mEq x 1. Continue PO intake as well as tolerated (13) Hyperbilirubinemia: Elevated bilirubin level to 3.2 with otherwise normal LFTs, but + vomiting RUQ US-fatty Liver, Gallstones (14) Subclinical hyperthyroidism: TSH low. T4 normal. Likely subclinical hyperthyroidism in the setting of acute issue. (15) History of heroin use: (16) History of opioid abuse: Tox screen negative. (17) DVT prophylaxis: Lovenox Labs checked ROS- +Headache, No Visual Changes, No Nausea, No Vomiting, No Fever, No Chills, No Neck Pain or Stiffness, No Chest Pain, No Palpitations, No SOB, No AUGUSTE, No Cough, No Sputum, No Wheezing, No Abdominal Pain, No Diarrhea, No Hematemesis, No Hemoptysis, No Unexpected Weight Loss, No Flank pain, No Melena, No Hematochezia, No Frequency, No Urgency, No Burning, No Hematuria, No Rashes, No Diaphoresis. Appetite is Normal Physical Exam Gen-AAO x 3, NAD, Afebrile Head-NCAT, EOMI, PERRLA, Anicteric Sclera, No Posterior Pharyngeal Erythema Neck-Supple, No JVD, No Thyromegaly, No Masses, No LAD, No Bruits Lungs-Clear to Auscultation Bilaterally, No Rales, No Rhonchi, No Wheezing, No Crepitus Chest-No S4, +S1, +S2, No S3, No Murmurs, No Rubs, No Gallops, No Ectopy Abdomen-Soft, Bowel Sounds Present, Non Tender, Non Distended, No Hepatomegaly, No Splenomegaly, No Palpable Masses, No Rebound, No Rigidity, No Guarding Musculoskeletal-Full Range of Motion Bilaterally, No CVAT Extremities-No Cyanosis, No Clubbing, No Edema Nuero-Cranial Nerves II-XII grossly intact, Motor WNL, DTRs WNL, Strength WNL, Non Focal Psych-Normal Mood Admission and Anticipated Discharge Date Admission Date: August 24, 2019 Results & Data Results & Data ([facility]) Vital Signs (Past 12 Hours) Vital Signs Temp Pulse Pulse Resp BP Pulse Ox 08/27/19 06:37 36.6 C 80 19 139/90 97 08/27/19 03:51 36.4 C L 88 18 132/86 96 08/27/19 00:14 82 08/26/19 23:29 36.6 C 102 H 19 147/84 H 95 (1) Hydrocephalus Hydrocephalus type: other Qualified Code(s): G91.8 - Other hydrocephalus (2) HTN (hypertension) Hypertension type: unspecified Qualified Code(s): I10 - Essential (primary) hypertension
[2019-08-27 08:03] LABS: Basophils # (auto) 0.04 K/uL (0-0.2); Basophils % (auto) 0.5 %; Eosinophils # (auto) 0.05 K/uL (0-0.5); Eosinophils % (auto) 0.6 %; Hemoglobin 15.7 g/dL (14.0-18.0); Immature Granulocytes # (auto) 0.09 K/uL (0.00-0.02); Immature Granulocytes % (auto) 1.2 %; Lymphocytes # (auto) 1.68 K/uL (1.2-3.4); Lymphocytes % (auto) 21.6 %; Mean Corpuscular Hemoglobin 34.4 pg (25-34); Mean Corpuscular Hgb Conc 34.9 g/dL (32-36); Mean Corpuscular Volume 98.7 fL (80-100); Mean Platelet Volume 9.4 fL (7.4-10.4); Monocytes # (auto) 0.64 K/uL (0.11-0.59); Monocytes % (auto) 8.2 %; Neutrophils # (auto) 5.28 K/uL (1.4-6.5); Neutrophils % (auto) 67.9 %; Platelet Count 265 K/uL (130-400); RDW Standard Deviation 46.9 fL (36.4-46.3); Red Blood Count 4.56 M/uL (4.7-6.1); White Blood Count 7.78 K/uL (4.8-10.8)
[2019-08-27] MEDS: METOCLOPRAMIDE HCL INJ 5 MG/ML 2 ML VIAL IV PRN ×2 (08:23→18:25)
[2019-08-27] MEDS: PANTOprazole 40 MG in SYRINGE 0 ML IV SCH ×2 (08:25→21:12)
[2019-08-27 08:36] LABS: Albumin Level 3.8 gm/dl (3.4-5.0); BUN Creatinine Ratio 4.2 (10-20); Calcium 9.3 mg/dl (8.5-10.1); Creatinine Clr Calc Pharmacy 124.6 ml/min; Est GFR (African American) 132.5; Est GFR (Non-African American) 114.3; Potassium 3.3 mmol/L (3.5-5.1)
[2019-08-27 08:39] LABS: Bilirubin,Total 1.8 mg/dl (0.2-1); Globulin 3.9 gm/dl (2.5-4.0); Total Protein 7.7 gm/dl (6.4-8.2)
[2019-08-27] MEDS ORDERED: ESCITALOPRAM OXALATE 10 MG TAB PO SCH (09:00)
[2019-08-27] MEDS: ACETAMINOPHEN 500 MG TAB PO SCH ×4 (10:21→21:11)
[2019-08-27] MEDS: levETIRAcetam 250 MG TAB PO SCH ×2 (10:21→21:12)
[2019-08-27] MEDS: DOXYCYCLINE HYCLATE 100 MG CAP PO SCH ×2 (10:21→21:12)
[2019-08-27] MEDS: KETOROLAC 30 MG/ML VIAL IV PRN ×2 (11:48→21:14)
[2019-08-27] MEDS: ONDANSETRON INJ 2 MG/ML 2 ML VIAL IV PRN ×2 (11:48→21:15)
[2019-08-27] MEDS: CEROVITE ADV FORMULA TAB PO SCH (11:51)
--- NOTE | 2019-08-27 12:46 | Psychiatric Progress Note ---
Date of Service August 27, 2019 Impression / Recommendations Impression Dr. Eleazar Levy was directly involved in review and discussion of the patient's case and participated in medical decision making regarding treatment recommendations. RECOMMENDATIONS: 08/25 - Unable to offer detailed psychiatric assessment of patient at this time, as he remains largely sedated and is unable to maintain attention necessary to participate in thorough discussion. - Will reduce escitalopram to 10mg daily. Cannot rule out possible serotonin toxicity in the setting of rapid titration of SSRI in the last week, though unable to perform adequate examination or gather information from patient due to level of sedation. - Not able to adequately assess the presence of depression with psychotic features at this time. Although this cannot be ruled out entirely, it is recommended that work-up for AMS be continued as his history suggests there may be several other causes contributing to AMS. - Collateral information was obtained from patient's niece, who denied previous psychiatric history. Lexapro was started ~1 week ago, and niece reports of patient's father and the mother of the patient's children in the last 6 months. - Will attempt to re-evaluate patient when he is better able to participate in conversation. Will assess patient's willingness for outpatient psychiatric treatment, though this does not seem to be the most acute concern at this point in his hospitalization. - Will continue to follow. Please reach out to our service with any additional questions or updates. 08/26 - Pt continues to demonstrate excessive fatigue and conversation is only moderately more productive that previous attempts. - He does deny overdose or substance use prior to admission. Pt is agreeable with holding escitalopram per neurology records, which seems appropriate. - As patient's mental status is documented to be improving with reduced presence of an SSRI, it is less likely that his presentation is consistent with depression with psychotic features. This may be an adverse drug reaction, but would ensure other possible explanations of AMS have been ruled out based on his history of Lyme encephalopathy and other medical concerns. - There continues to be no indication for inpatient psychiatric treatment, as patient is denying SI, SIB, and A/V hallucinations. Pt was encouraged to consider outpatient psychiatric services and was offered referrals, he is unsure if he is interested in these services at this time. (1) Altered mental status: Interval History Identifying Information 39-year-old male admitted medically on 08/24/2019 after presenting to the ED with altered mental status x 1 week. He also reported decreased appetite, vomiting, and headache. Psychiatric consultation requested to evaluate patient for AMS and history of depression. Initial assessment was attempted on 08/26/2019; however, patient was not able to participate in an overly productive c onversation at that time. Seen today for follow-up. Chief Complaint "Better." Review of Systems Notes Constitutional: reports ongoing fatigue Cardiovascular: denied Respiratory: denied Gastrointestinal: denied Neurological: reports ongoing confusion, though does admit to improvement since admission Psychiatric: denies symptoms other than stated above Total of at least 10 systems reviewed, pertinent positives as above and in HPI. Subjective Subjective Patient's case was reviewed and discussed during morning report with psychiatric nurse liaison and supervising psychiatrist. Interim nursing and provider documentation reviewed. It appears as though patient is intermittently alert and appropriate in conversation, but this does not appear to be consistently the case. Pt was seen today to assess progress since admission. Pt was observed to be sleeping as this provider entered the room. He did wake to his name being called after several attempts. Pt reports he is feeling "better" today. When asked what led to his hospitalization, the patient stated "headaches and stuff." Pt reports that he came to the ED of his own accord and only after specific inquiry did he admit to feeling confused. Pt denies overdose of prescription drugs and states "it definitely wasn't substances." He maintains that he has been sober for over a year. Multiple times during our conversation, the patient falls asleep. He then abruptly wakes and verbalizes statements such as "Sorry, I'm so tired" or "I have to pee." Pt does admit to increased depression when asked directly. He initially states his mood has been low for "weeks", but then admits that his mood has been low since "my old lady , unexpectedly." Pt reports decreased energy, limited motivation, poor appetite, difficulty sleeping, and difficulty with concentration. He denies suicidal ideation or history of suicide attempts. When asked about auditory and visual hallucinations, the patient states "not really very often." When asked to clarify this statement, he denies hallucinations. Pt does admit that the initiation of escitalopram is consistent with the onset of his symptoms, but is unable to recall if there were any other possible precipitating factors. Pt was agreeable with holding escitalopram for the time being. Pt was asked about his willingness for outpatient psychiatric treatment, and stated "I don't have time." When asked if he was back at work or what was preventing these appointments, he stated "I just don't have the motivation to do it." We discussed that it is unlikely that his mood will change if he is not able to consider taking steps to work toward improvement. Pt later admits he will think about allowing our service to initiate outpatient psychiatric referrals, but is not willing to agree yet. Pt then abruptly states "I'm gonna lay down now. You can come back later if you want." He denied other needs or concerns at this time, and this provider allowed the patient to sleep. Physical Exam Psychiatric Orientation: alert (intermittenty, continues to have difficulty with encounter due to fatigue ), oriented to person and oriented to place Apperance: appropriately dressed and + disheveled; + inappropriately groomed Eye Contact: + fair eye contact Motor Behavior: + tremor (intermittent fine tremor of hands observed) Speech: normal rate/rhythm/volume of speech (brief responses to questions, monotone) Affect: + flat affect and mood congruent with affect Mood: + depressed mood Thought Process: + concrete thought process Thought Content: reality based without delusions (though admits to poor memory and ongoing confusion); no hopelessness Suicidal Thoughts: denies suicidal thoughts and denies suicidal intent Homicidal Thoughts: denies homicidal thoughts Hallucinations: no auditory hallucinations and no visual hallucinations Initially states "not really very often", but then denied when asked to clarify his response Cognition: + recent memory not intact and + attention not intact (difficulty maintaining attention due to level of fatigue ) Insight: + limited insight Judgement: + limited judgement Vital Signs (Past 24 Hours) Last Vital Signs Temp 36.6 C 08/27/19 06:37 Pulse 80 08/27/19 06:37 Resp 19 08/27/19 06:37 BP 139/90 08/27/19 06:37 Pulse Ox 97 08/27/19 06:37 Results & Data ([facility]) Laboratory Results Laboratory Results - last 24 hr 08/27/19 08/27/19 07:38 07:38 WBC 7.78 RBC 4.56 L Hgb 15.7 Hct 45.0 MCV 98.7 MCH 34.4 H MCHC 34.9 RDW Std Deviation 46.9 H RDW Coeff of Giuliana 13.0 Plt Count 265 MPV 9.4 Immature Gran % (Auto) 1.2 Neut % (Auto) 67.9 Lymph % (Auto) 21.6 [place] % (Auto) 8.2 Eos % (Auto) 0.6 Baso % (Auto) 0.5 Neut # (Auto) 5.28 Lymph # (Auto) 1.68 [place] # (Auto) 0.64 H Eos # (Auto) 0.05 Baso # (Auto) 0.04 Immature Gran # (Auto) 0.09 H Sodium 138 Potassium 3.3 L Chloride 107 Carbon Dioxide 25 Anion Gap 6.0 BUN 3 L Creatinine 0.77 Est Cr Clr Drug Dosing 124.6 Est GFR ( Amer) 132.5 Est GFR (Non-Af Amer) 114.3 BUN/Creatinine Ratio 4.2 L Glucose 99 Calcium 9.3 Total Bilirubin 1.8 H AST 16 ALT 33 Alkaline Phosphatase 66 Total Protein 7.7 Albumin 3.8 Globulin 3.9 Albumin/Globulin Ratio 1.0 Current Inpatient Medications Current Inpatient Medications: Current Inpatient Medications Acetaminophen (Tylenol) 500 mg PO Q4HSC IAN Stop: 09/26/19 07:59 Last Admin: 08/27/19 11:52 Dose: Not Given Documented by: Acyclovir (Zovirax 5%) 1 appln EXT Q4H IAN Stop: 09/06/19 12:29 Diphenhydramine HCl (Benadryl) 25 mg IV Q8H PRN PRN Reason: Headache or Pain Stop: 09/26/19 07:29 Doxycycline Hyclate (Vibramycin) 100 mg PO BID IAN Stop: 09/03/19 23:48 Last Admin: 08/27/19 10:21 Dose: 100 mg Documented by: Gadobutrol (Gadavist 65ml) 6.7 ml IV ONCE PRN PRN Reason: Interaction Checking Stop: 08/29/19 03:02 Last Admin: 08/25/19 02:40 Dose: 6.7 ml Documented by: Hydralazine HCl (Hydralazine Hcl) 10 mg IV Q6H PRN PRN Reason: hypertension Stop: 09/24/19 16:44 Last Admin: 08/26/19 21:13 Dose: 10 mg Documented by: Potassium Chloride/Dextrose/Sod Cl (D5nss + 20meq Kcl) 20 meq in 1,000 mls @ 125 mls/hr IV .Q8H IAN Stop: 09/24/19 13:44 Last Admin: 08/27/19 08:26 Dose: 125 mls/hr Documented by: Pantoprazole Sodium 40 mg/ (Syringe) 10 mls @ 5 mls/min IV BID [facility] Stop: 09/24/19 20:59 Last Admin: 08/27/19 08:25 Dose: 5 mls/min Documented by: Promethazine HCl 6.25 mg/ (Sodium Chloride) 50.25 mls @ 201 mls/hr IV Q6H PRN PRN Reason: Headache or Pain Stop: 09/24/19 13:11 Ketorolac Tromethamine (Toradol) 30 mg IV Q8H PRN PRN Reason: Pain Stop: 09/01/19 07:26 Last Admin: 08/27/19 11:48 Dose: 30 mg Documented by: Levetiracetam (Keppra) 750 mg PO BID [facility] Stop: 09/24/19 08:59 Last Admin: 08/27/19 10:21 Dose: 750 mg Documented by: Metoclopramide HCl (Reglan) 10 mg IV Q8H PRN PRN Reason: Headache or Pain Stop: 09/26/19 07:29 Last Admin: 08/27/19 08:23 Dose: 10 mg Documented by: Multivitamins/Minerals (Multivitamin W/ Minerals Tab) 1 tab PO DAILY@1200 [facility] Stop: 09/24/19 11:59 Last Admin: 08/27/19 11:51 Dose: 1 tab Documented by: Ondansetron HCl (Zofran) 4 mg IV Q6H PRN PRN Reason: Nausea Stop: 09/23/19 23:48 Last Admin: 08/27/19 11:48 Dose: 4 mg Documented by: Valacyclovir HCl (Valtrex) 500 mg PO TID [facility] Stop: 09/03/19 13:59
[2019-08-27 12:48] LABS: Microsomal Ab <1 IU/mL (<9); Thyroglobulin Antibodies <1 IU/mL (< or = 1)
[2019-08-27] MEDS: VALACYCLOVIR HCL 500 MG TABLET PO SCH ×2 (14:30→21:12)
[2019-08-27] MEDS: ACYCLOVIR 5% OINT 15 GM TUBE EXT SCH ×3 (14:31→21:11)
[2019-08-27] MEDS: HydrALAZINE HCL 20 MG/ML VIAL IV PRN (18:24)
[2019-08-27] MEDS ORDERED: cloNIDine HCL 0.1 MG TAB PO ONE ×2 (20:22→22:29)
[2019-08-28] MEDS: ACYCLOVIR 5% OINT 15 GM TUBE EXT SCH ×6 (00:51→21:22)
[2019-08-28] MEDS: D5NSS + 20MEQ KCL 20 MEQ/1,000 ML BAG IV SCH ×4 (00:51→19:44)
[2019-08-28] MEDS: HydrALAZINE HCL 20 MG/ML VIAL IV PRN (07:05)
[2019-08-28] MEDS: ACETAMINOPHEN 500 MG TAB PO SCH ×4 (07:13→21:22)
[2019-08-28 08:35] LABS: 18KDIGG Band REACTIVE; 23KDIGG Band NON-REACTIVE; 23KDIGM Band REACTIVE; 28KDIGG Band REACTIVE; 30KDIGG Band NON-REACTIVE; 39KDIGG Band REACTIVE; 39KDIGM Band REACTIVE; 41KDIGG Band NON-REACTIVE; 41KDIGM Band NON-REACTIVE; 45KDIGG Band NON-REACTIVE; 58KDIGG Band REACTIVE; 66KDIGG Band NON-REACTIVE; 93KDIGG Band NON-REACTIVE; Lyme Antibodies, WB IgG NEGATIVE (NEGATIVE); Lyme Antibodies, WB IgM POSITIVE (NEGATIVE)
[2019-08-28] MEDS: ONDANSETRON INJ 2 MG/ML 2 ML VIAL IV PRN (09:20)
[2019-08-28] MEDS: KETOROLAC 30 MG/ML VIAL IV PRN (09:20)
[2019-08-28] MEDS: levETIRAcetam 250 MG TAB PO SCH ×2 (09:27→21:22)
[2019-08-28] MEDS: VALACYCLOVIR HCL 500 MG TABLET PO SCH ×3 (09:28→21:22)
[2019-08-28] MEDS: PANTOprazole 40 MG in SYRINGE 0 ML IV SCH ×2 (09:28→21:23)
[2019-08-28] MEDS: DOXYCYCLINE HYCLATE 100 MG CAP PO SCH ×2 (09:29→21:23)
--- NOTE | 2019-08-28 11:53 | Hospitalist Progress Note ---
Date of Service August 28, 2019 Assessment & Plan (1) Altered mental status: (2) Headache: (3) History of Lyme disease: (4) History of meningitis: (5) Hydrocephalus: (6) Nausea: (7) Vomiting: Patient with acutely altered mental status & headache x 1 week per his mother. Uncertain etiology WBC count slightly elevated. Consider infection as possible cause. 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 Will await WB. Anaplasma smear is negative. Continue Ceftriaxone and Doxycycline UA & Cx pending. CT of head and abdomen/pelvis unrevealing. With hx of meningitis, anoxic brain injury, brain abscess, and hydrocephalus, Negative MRI Neurology on case, rec DC MSO4 and start Toradol, Reglan, and Benadryl for pain, and stopping Lexapro Aspiration, fall, & seizure precautions No current nuchal rigidity. (8) HTN (hypertension): BP elevated in ED. DC Tele (9) SIADH (syndrome of inappropriate ADH production): (10) Alkalosis: (11) Hyponatremia: (12) Hypokalemia: Chronic SIADH, but very dehydrated on exam. Worsened hyponatremia and also hypokalemia likely secondary to vomiting, decreased appetite, and poor PO intake overall. Lactated ringer's x 2 bags PO Potassium 40 mEq x 1. Continue PO intake as well as tolerated (13) Hyperbilirubinemia: Elevated bilirubin level to 3.2 with otherwise normal LFTs, but + vomiting RUQ US-fatty Liver, Gallstones (14) Subclinical hyperthyroidism: TSH low. T4 normal. Likely subclinical hyperthyroidism in the setting of acute issue. (15) History of heroin use: (16) History of opioid abuse: Tox screen negative. (17) DVT prophylaxis: Lovenox Pulse up today, IVFs, DC 1-2 days Labs checked ROS- +Headache, No Visual Changes, No Nausea, No Vomiting, No Fever, No Chills, No Neck Pain or Stiffness, No Chest Pain, No Palpitations, No SOB, No AUGUSTE, No Cough, No Sputum, No Wheezing, No Abdominal Pain, No Diarrhea, No Hematemesis, No Hemoptysis, No Unexpected Weight Loss, No Flank pain, No Melena, No Hematochezia, No Frequency, No Urgency, No Burning, No Hematuria, No Rashes, No Diaphoresis. Appetite is Normal Physical Exam Gen-AAO x 3, NAD, Afebrile Head-NCAT, EOMI, PERRLA, Anicteric Sclera, No Posterior Pharyngeal Erythema Neck-Supple, No JVD, No Thyromegaly, No Masses, No LAD, No Bruits Lungs-Clear to Auscultation Bilaterally, No Rales, No Rhonchi, No Wheezing, No Crepitus Chest-No S4, +S1, +S2, No S3, No Murmurs, No Rubs, No Gallops, No Ectopy Abdomen-Soft, Bowel Sounds Present, Non Tender, Non Distended, No Hepatomegaly, No Splenomegaly, No Palpable Masses, No Rebound, No Rigidity, No Guarding Musculoskeletal-Full Range of Motion Bilaterally, No CVAT Extremities-No Cyanosis, No Clubbing, No Edema Nuero-Cranial Nerves II-XII grossly intact, Motor WNL, DTRs WNL, Strength WNL, Non Focal Psych-Normal Mood Admission and Anticipated Discharge Date Admission Date: August 24, 2019 Results & Data Results & Data ([facility]) Vital Signs (Past 12 Hours) Vital Signs Temp Pulse Resp BP Pulse Ox 08/28/19 11:25 37.2 C 117 H 16 128/78 97 08/28/19 09:13 114 H 158/98 H 08/28/19 07:11 36.8 C 98 H 20 179/98 H 96 (1) Hydrocephalus Hydrocephalus type: other Qualified Code(s): G91.8 - Other hydrocephalus (2) HTN (hypertension) Hypertension type: unspecified Qualified Code(s): I10 - Essential (primary) hypertension
[2019-08-28] MEDS: CEROVITE ADV FORMULA TAB PO SCH (12:15)
--- NOTE | 2019-08-28 15:58 | Electrocardiogram Report ---
Test Reason : Blood Pressure : / mmHG Vent. Rate : 085 BPM Atrial Rate : 085 BPM P-R Int : 144 ms QRS Dur : 080 ms QT Int : 374 ms P-R-T Axes : 042 003 -24 degrees QTc Int : 445 ms Normal sinus rhythm Minimal voltage criteria for LVH, may be normal variant ( R in aVL ) T wave abnormality, consider inferior ischemia Abnormal ECG When compared with ECG of 24-AUG-2019 16:12, No significant change was found Confirmed by Torey Molina ([id number]) on 08/28/2019 3:57:43 PM Referred By: REFERRED SELF Confirmed By:Torey Molina
--- NOTE | 2019-08-28 16:04 | Discharge Summary ---
Date of Service August 28, 2019 Admission HPI Per Admitting Provider Patient is a 39 yo male who presented to the ED for altered mental status and confusion x 1 week. The patient does not give a very reliable history, but he does state that his mother could be helpful and gave permission for us to call. His mother stated that over the past 1 week, he has started to become very confused. He has had problems walking and getting himself out of bed. He has also lost control of his bladder at times. He has had decreased appetite, vomiting, and headache at home. The patient typically functions much better than he is currently. He does have history of drug abuse, but his mother states he hasn't been using recently that she knows of. 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 The patient has been chronically noncompliant from review of his history. He has eloped from the hospital on multiple occasions in the past. 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 He has no history of alcohol use per his record. Since presentation, patient noted to have WBC count elevated at 12.14, hyponatremia down to 131, hypokalemia down to 2.7, elevated bilirubin of 3.2 but otherwise normal LFTs. Troponin negative. CK normal. TSH low at 0.088 with normal T4. Lyme IgG AB + and IgM AB equivocal. WB pending. Anaplasma smear pending. UA & tox screen pending. Head CT shows no acute changes. CT abd/pelvis showed no acute process. CXR negative. Admission Exam Per Admitting Provider Constitutional: well developed, + ill appearing and + altered mental status; + not appropriately hydrated Eyes: PERRL, conjunctivae normal, anicteric sclerae ENMT: Ears: no hearing impairment Mouth: + lip abnormality (Very dry) and + dentition abnormality Dry mucous membranes Neck: trachea midline, no thyromegaly Respiratory: normal respiratory effort, lungs clear to auscultation Cardiovascular: RRR, no murmur, no edema Gastrointestinal (Abdomen): normal bowel sounds, soft, nontender, no hepatosplenomegaly Musculoskeletal: Head/Neck/Chest: normocephalic and head atraumatic Extremities: extremities normal to inspection Skin: no rashes, warm and dry Neurologic: CN's II-XI intact bilaterally and moves all extremities; no focal motor deficits Speech / Cognition: normal speech Motor/Sensory: no tremor Psychiatric: Alert, Oriented to place and person. Not oriented to time. He states that the month is March. Flat affect Principal Diagnosis Lyme Disease Altered mental status: Seizure Headache: History of meningitis: Hydrocephalus: Nausea: Vomiting: Discharge Exam See Below Discharge Data Allergies Allergy/AdvReac Type Severity Reaction Status Date / Time Penicillins Allergy Unknown Unknown Verified 08/24/19 17:10 Consultations 08/24/19 20:36 ED Decision to Admit Stat 08/24/19 23:49 Consult Case Management - Discharge Planning Routine 08/25/19 08:05 Consult Neurology Routine 08/25/19 20:05 Consult Gastroenterology Routine 08/25/19 20:32 Consult Psychiatry Routine Ordered Studies 08/24/19 15:55 CT abd pelvis IV con only Stat CT head/brain wo con Stat 08/24/19 23:49 MR brain wo/w con Routine US abdomen limited Routine 08/24/19 08/24/19 Range/Units 22:44 16:50 Levetiracetam 8.7 L (12.0-46.0) mcg/mL Lyme IgG (Western Blot) NEGATIVE (NEGATIVE) Lyme IgG 18 kDa Band REACTIVE A Lyme IgG 23 kDa Band NON-REACTIVE Lyme IgG 28 kDa Band REACTIVE A Lyme IgG 30 kDa Band NON-REACTIVE Lyme IgG 39 kDa Band REACTIVE A Lyme IgG 41 kDa Band NON-REACTIVE Lyme IgG 45 kDa Band NON-REACTIVE Lyme IgG 58 kDa Band REACTIVE A Lyme IgG 66 kDa Band NON-REACTIVE Lyme IgG 93 kDa Band NON-REACTIVE Lyme IgM Ab (WB) POSITIVE A (NEGATIVE) Lyme IgM 23 kDa Band REACTIVE A Lyme IgM 39 kDa Band REACTIVE A Lyme IgM 41 kDa Band NON-REACTIVE Hospital Course (1) Altered mental status: (2) Headache: (3) History of Lyme disease: (4) History of meningitis: (5) Hydrocephalus: (6) Nausea: (7) Vomiting: Patient with acutely altered mental status & headache x 1 week per his mother. Uncertain etiology WBC count slightly elevated. Consider infection as possible cause. 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 WB +Lyme. Anaplasma smear is negative. Continue Ceftriaxone and Doxycycline UA & Cx pending. CT of head and abdomen/pelvis unrevealing. With hx of meningitis, anoxic brain injury, brain abscess, and hydrocephalus, Negative MRI Neurology on case, rec DC MSO4 and start Toradol, Reglan, and Benadryl for pain, and stopping Lexapro Aspiration, fall, & seizure precautions No current nuchal rigidity. DC home on 2 weeks Doxycycline (8) HTN (hypertension): BP elevated in ED. DC Tele (9) SIADH (syndrome of inappropriate ADH production): (10) Alkalosis: (11) Hyponatremia: (12) Hypokalemia: Chronic SIADH, but very dehydrated on exam. Worsened hyponatremia and also hypokalemia likely secondary to vomiting, decreased appetite, and poor PO intake overall. Lactated ringer's x 2 bags PO Potassium 40 mEq x 1. Continue PO intake as well as tolerated (13) Hyperbilirubinemia: Elevated bilirubin level to 3.2 with otherwise normal LFTs, but + vomiting RUQ US-fatty Liver, Gallstones (14) Subclinical hyperthyroidism: TSH low. T4 normal. Likely subclinical hyperthyroidism in the setting of acute issue. (15) History of heroin use: (16) History of opioid abuse: Tox screen negative. (17) DVT prophylaxis: Lovenox DC Home Today Labs checked ROS- +Headache, No Visual Changes, No Nausea, No Vomiting, No Fever, No Chills, No Neck Pain or Stiffness, No Chest Pain, No Palpitations, No SOB, No AUGUSTE, No Cough, No Sputum, No Wheezing, No Abdominal Pain, No Diarrhea, No Hematemesis, No Hemoptysis, No Unexpected Weight Loss, No Flank pain, No Melena, No Hematochezia, No Frequency, No Urgency, No Burning, No Hematuria, No Rashes, No Diaphoresis. Appetite is Normal Physical Exam Gen-AAO x 3, NAD, Afebrile Head-NCAT, EOMI, PERRLA, Anicteric Sclera, No Posterior Pharyngeal Erythema Neck-Supple, No JVD, No Thyromegaly, No Masses, No LAD, No Bruits Lungs-Clear to Auscultation Bilaterally, No Rales, No Rhonchi, No Wheezing, No Crepitus Chest-No S4, +S1, +S2, No S3, No Murmurs, No Rubs, No Gallops, No Ectopy Abdomen-Soft, Bowel Sounds Present, Non Tender, Non Distended, No Hepatomegaly, No Splenomegaly, No Palpable Masses, No Rebound, No Rigidity, No Guarding Musculoskeletal-Full Range of Motion Bilaterally, No CVAT Extremities-No Cyanosis, No Clubbing, No Edema Nuero-Cranial Nerves II-XII grossly intact, Motor WNL, DTRs WNL, Strength WNL, Non Focal Psych-Normal Mood Total Time Total Time Spent Total Time Spent (In Minutes): 45 mins Total Time Includes: Examination of the Patient, Discharge Planning, Medication Reconciliation and Communication With Other Providers Discharge Plan Discharge Items Patient Disposition: Home - Self-Care Reason For Visit: ALTERED MENTAL STATUS Discharge Diagnosis: Lyme Disease Altered mental status: Seizure Headache: History of meningitis: Hydrocephalus: Nausea: Vomiting: Activity: Resume your previous activity Lifting: Gradually increase as tolerated Bathing: No limitations Sexual Activity: When tolerated Exercise/Sports: None Driving/Machine Use: No limitations Weightbearing: Full weightbearing Non-emergency contact: Primary Care Provider Call non-emergency contact if: you have any medication questions Follow-up/Referrals: Josiane Obrien DO [Primary Care Provider] - Volodymyr Cho MD [Physician] - 09/03/19 10:20 am Diet: Regular Addtl Attending Provider Instructions: None Pending Studies at Discharge: No Stand-Alone Forms: My [employer], Smoking Cessation Medications and DC Order Prescriptions: New doxycycline hyclate 100 mg Capsule 100 mg PO BID Qty: 28 RF: 0 valacyclovir 500 mg Tablet 500 mg PO TID Qty: 10 RF: 0 acyclovir [Zovirax] 5 % Ointment 1 applic EXT Q4H Qty: 15 RF: 0 Continued levetiracetam [Keppra] 500 mg tablet 750 mg PO BID RF: 0 Emgality Pen 120 mg/mL pen injector 120 mg SUBCUT MONTHLY RF: 0 multivitamin with minerals [Men's One Daily] Tablet 1 tab PO DAILY RF: 0 Discontinued escitalopram oxalate 10 mg tablet 10 mg PO DIRECTED RF: 0 escitalopram oxalate 20 mg tablet 20 mg PO DIRECTED RF: 0 Discharge Orders: Discharge Order (Routine); Ordered 08/28/19 Ordered By: Tay Blackwell Admission Data Admit Date/Time: 08/24/19 21:38 Attending Provider: Tay Blackwell Admit Provider: Darrius Palafox Primary Care Provider: Josiane Obrien Other Providers: Varinder Canchola ; Grant Wright ; Miguel Fernando ; Edwardo Hinton ; Selina Vega ; Reuben Maec ; Cortez Asher ; Sabino Negron ; Smitha Silva ; Vivek Ellis ; Jocelynn Ramos ; Giovana Schwartz ; Rosie Latham ; Kathy Fontenot ; Eleazar Levy I. ; Leelee Pereira ; Annie Bowen ; Elisa Escalona ; Saul Bravo.
[2019-08-29] MEDS: ACYCLOVIR 5% OINT 15 GM TUBE EXT SCH ×6 (00:30→22:08)
[2019-08-29] MEDS: D5NSS + 20MEQ KCL 20 MEQ/1,000 ML BAG IV SCH ×3 (03:09→20:55)
[2019-08-29] MEDS: ACETAMINOPHEN 500 MG TAB PO SCH ×4 (08:23→22:03)
[2019-08-29] MEDS: VALACYCLOVIR HCL 500 MG TABLET PO SCH ×3 (08:24→22:05)
[2019-08-29] MEDS: levETIRAcetam 250 MG TAB PO SCH ×2 (08:25→22:04)
[2019-08-29] MEDS: DOXYCYCLINE HYCLATE 100 MG CAP PO SCH ×2 (08:25→22:06)
[2019-08-29 08:37] LABS: Hematocrit (blood only) 40.2 % (42-52); Hemoglobin 13.4 g/dL (14.0-18.0); Mean Corpuscular Hemoglobin 32.3 pg (25-34); Mean Corpuscular Hgb Conc 33.3 g/dL (32-36); Mean Corpuscular Volume 96.9 fL (80-100); Mean Platelet Volume 9.4 fL (7.4-10.4); Platelet Count 291 K/uL (130-400); RDW Coefficient of Variation 12.9 % (11.5-14.5); RDW Standard Deviation 45.8 fL (36.4-46.3); Red Blood Count 4.15 M/uL (4.7-6.1)
[2019-08-29] MEDS: KETOROLAC 30 MG/ML VIAL IV PRN ×2 (08:43→22:14)
[2019-08-29] MEDS: PANTOprazole 40 MG in SYRINGE 0 ML IV SCH ×2 (08:43→22:09)
[2019-08-29] MEDS: HydrALAZINE HCL 20 MG/ML VIAL IV PRN (08:43)
--- NOTE | 2019-08-29 08:51 | Hospitalist Progress Note ---
Date of Service August 29, 2019 Assessment & Plan (1) Altered mental status: (2) Headache: (3) History of Lyme disease: (4) History of meningitis: (5) Hydrocephalus: (6) Nausea: (7) Vomiting: Patient with acutely altered mental status & headache x 1 week per his mother. Uncertain etiology WBC count slightly elevated. Consider infection as possible cause. 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 WB +Lyme. Anaplasma smear is negative. Continue Ceftriaxone and Doxycycline UA & Cx pending. CT of head and abdomen/pelvis unrevealing. With hx of meningitis, anoxic brain injury, brain abscess, and hydrocephalus, Negative MRI Neurology on case, rec DC MSO4 and start Toradol, Reglan, and Benadryl for pain, and stopping Lexapro Aspiration, fall, & seizure precautions No nuchal rigidity. DC to SNF when bed available on 2 weeks Doxycycline (8) HTN (hypertension): BP elevated in ED. DC Tele (9) SIADH (syndrome of inappropriate ADH production): (10) Alkalosis: (11) Hyponatremia: (12) Hypokalemia: Chronic SIADH, but very dehydrated on exam. Worsened hyponatremia and also hypokalemia likely secondary to vomiting, decreased appetite, and poor PO intake overall. Lactated ringer's x 2 bags PO Potassium Continue PO intake as well as tolerated (13) Hyperbilirubinemia: Elevated bilirubin level to 3.2 with otherwise normal LFTs, but + vomiting RUQ US-fatty Liver, Gallstones (14) Subclinical hyperthyroidism: TSH low. T4 normal. Likely subclinical hyperthyroidism in the setting of acute issue. (15) History of heroin use: (16) History of opioid abuse: Tox screen negative. (17) DVT prophylaxis: Lovenox DC Home Today Labs checked ROS- +Headache, No Visual Changes, No Nausea, No Vomiting, No Fever, No Chills, No Neck Pain or Stiffness, No Chest Pain, No Palpitations, No SOB, No AUGUSTE, No Cough, No Sputum, No Wheezing, No Abdominal Pain, No Diarrhea, No Hematemesis, No Hemoptysis, No Unexpected Weight Loss, No Flank pain, No Melena, No Hematochezia, No Frequency, No Urgency, No Burning, No Hematuria, No Rashes, No Diaphoresis. Appetite is Normal Physical Exam Gen-AAO x 3, NAD, Afebrile Head-NCAT, EOMI, PERRLA, Anicteric Sclera, No Posterior Pharyngeal Erythema Neck-Supple, No JVD, No Thyromegaly, No Masses, No LAD, No Bruits Lungs-Clear to Auscultation Bilaterally, No Rales, No Rhonchi, No Wheezing, No Crepitus Chest-No S4, +S1, +S2, No S3, No Murmurs, No Rubs, No Gallops, No Ectopy Abdomen-Soft, Bowel Sounds Present, Non Tender, Non Distended, No Hepatomegaly, No Splenomegaly, No Palpable Masses, No Rebound, No Rigidity, No Guarding Musculoskeletal-Full Range of Motion Bilaterally, No CVAT Extremities-No Cyanosis, No Clubbing, No Edema Nuero-Cranial Nerves II-XII grossly intact, Motor WNL, DTRs WNL, Strength WNL, Non Focal Psych-Normal Mood Admission and Anticipated Discharge Date Admission Date: August 24, 2019 Results & Data Results & Data ([facility]) Vital Signs (Past 12 Hours) Vital Signs Temp Pulse Resp BP Pulse Ox 08/29/19 07:49 37.0 C 93 H 18 174/99 H 97 08/28/19 22:54 37 C 79 20 118/76 96 (1) Hydrocephalus Hydrocephalus type: other Qualified Code(s): G91.8 - Other hydrocephalus (2) HTN (hypertension) Hypertension type: unspecified Qualified Code(s): I10 - Essential (primary) hypertension
[2019-08-29 09:01] LABS: Albumin Level 3.7 gm/dl (3.4-5.0); BUN Creatinine Ratio 5.9 (10-20); Calcium 9.5 mg/dl (8.5-10.1); Est GFR (African American) 131.8; Est GFR (Non-African American) 113.7; Potassium 3.3 mmol/L (3.5-5.1)
[2019-08-29 09:04] LABS: Bilirubin,Total 1.9 mg/dl (0.2-1); Globulin 3.5 gm/dl (2.5-4.0); Total Protein 7.2 gm/dl (6.4-8.2)
[2019-08-29] MEDS: POTASSIUM CHLORIDE 20 MEQ TABCR PO SCH ×3 (09:30→22:05)
[2019-08-29] MEDS: METOCLOPRAMIDE HCL INJ 5 MG/ML 2 ML VIAL IV PRN (12:37)
[2019-08-29] MEDS: DiphenhydrAMINE HCL 50 MG/ML VIAL IV PRN (12:37)
[2019-08-29] MEDS: CEROVITE ADV FORMULA TAB PO SCH (12:45)
[2019-08-30] MEDS: ACYCLOVIR 5% OINT 15 GM TUBE EXT SCH ×6 (00:15→21:42)
[2019-08-30] MEDS: D5NSS + 20MEQ KCL 20 MEQ/1,000 ML BAG IV SCH ×2 (04:07→12:09)
[2019-08-30] MEDS: ACETAMINOPHEN 500 MG TAB PO SCH ×4 (08:37→20:45)
[2019-08-30] MEDS: VALACYCLOVIR HCL 500 MG TABLET PO SCH ×2 (08:38→14:45)
[2019-08-30] MEDS: DOXYCYCLINE HYCLATE 100 MG CAP PO SCH (08:38)
[2019-08-30] MEDS: levETIRAcetam 250 MG TAB PO SCH (08:38)
[2019-08-30] MEDS: POTASSIUM CHLORIDE 20 MEQ TABCR PO SCH ×3 (08:39→20:44)
--- NOTE | 2019-08-30 10:17 | Hospitalist Progress Note ---
Date of Service August 30, 2019 Assessment & Plan (1) Altered mental status: (2) Headache: (3) History of Lyme disease: (4) History of meningitis: (5) Hydrocephalus: (6) Nausea: (7) Vomiting: Patient with acutely altered mental status & headache x 1 week per his mother. Likely Lyme 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 WB +Lyme. Anaplasma smear is negative. Continue Ceftriaxone and Doxycycline UA & Cx pending. CT of head and abdomen/pelvis unrevealing. With hx of meningitis, anoxic brain injury, brain abscess, and hydrocephalus, Negative MRI Neurology on case, rec DC MSO4 and start Toradol, Reglan, and Benadryl for pain, and stopping Lexapro Aspiration, fall, & seizure precautions No nuchal rigidity. (8) HTN (hypertension): BP elevated in ED. DC Tele (9) SIADH (syndrome of inappropriate ADH production): (10) Alkalosis: (11) Hyponatremia: (12) Hypokalemia: Chronic SIADH, but very dehydrated on exam. Worsened hyponatremia and also hypokalemia likely secondary to vomiting, decreased appetite, and poor PO intake overall. Lactated ringer's x 2 bags PO Potassium Continue PO intake as well as tolerated (13) Hyperbilirubinemia: Elevated bilirubin level to 3.2 with otherwise normal LFTs, but + vomiting RUQ US-fatty Liver, Gallstones (14) Subclinical hyperthyroidism: TSH low. T4 normal. Likely subclinical hyperthyroidism in the setting of acute issue. (15) History of heroin use: (16) History of opioid abuse: Tox screen negative. (17) DVT prophylaxis: Lovenox Shingles-Valtrex Still not at MS baseline, Possible Aspiration today, CXR, Continue Doxy Labs checked ROS- Mild Headache, No Visual Changes, + Nausea, + Vomiting, No Fever, No Chills, No Neck Pain or Stiffness, No Chest Pain, No Palpitations, No SOB, No AUGUSTE, No Cough, No Sputum, No Wheezing, No Abdominal Pain, No Diarrhea, No Hematemesis, No Hemoptysis, No Unexpected Weight Loss, No Flank pain, No Melena, No Hematochezia, No Frequency, No Urgency, No Burning, No Hematuria, No Rashes, No Diaphoresis. Appetite is Normal Physical Exam Gen-AAO x 1, NAD, Afebrile Head-NCAT, EOMI, PERRLA, Anicteric Sclera, No Posterior Pharyngeal Erythema Neck-Supple, No JVD, No Thyromegaly, No Masses, No LAD, No Bruits Lungs-Clear to Auscultation Bilaterally, No Rales, No Rhonchi, No Wheezing, No Crepitus Chest-No S4, +S1, +S2, No S3, No Murmurs, No Rubs, No Gallops, No Ectopy Abdomen-Soft, Bowel Sounds Present, Non Tender, Non Distended, No Hepatomegaly, No Splenomegaly, No Palpable Masses, No Rebound, No Rigidity, No Guarding Musculoskeletal-Full Range of Motion Bilaterally, No CVAT Extremities-No Cyanosis, No Clubbing, No Edema Nuero-Cranial Nerves II-XII grossly intact, Motor WNL, DTRs WNL, Strength WNL, Non Focal Psych-Pleasant, can't follow commands Admission and Anticipated Discharge Date Admission Date: August 24, 2019 Results & Data Results & Data ([facility]) Vital Signs (Past 12 Hours) Vital Signs Temp Pulse Pulse Resp BP BP Pulse Ox 08/30/19 07:00 36.4 C L 81 14 152/84 H 92 08/30/19 00:29 36.6 C 72 14 142/89 H 98 08/29/19 22:52 36.5 C 65 20 143/79 H (1) Hydrocephalus Hydrocephalus type: other Qualified Code(s): G91.8 - Other hydrocephalus (2) HTN (hypertension) Hypertension type: unspecified Qualified Code(s): I10 - Essential (primary) hypertension
[2019-08-30] MEDS: PANTOprazole 40 MG in SYRINGE 0 ML IV SCH ×2 (10:45→21:44)
[2019-08-30] MEDS: ONDANSETRON INJ 2 MG/ML 2 ML VIAL IV PRN (10:45)
[2019-08-30 10:48] LABS: Hematocrit (blood only) 42.7 % (42-52); Hemoglobin 15.1 g/dL (14.0-18.0); Mean Corpuscular Hemoglobin 33.8 pg (25-34); Mean Corpuscular Hgb Conc 35.4 g/dL (32-36); Mean Corpuscular Volume 95.5 fL (80-100); Mean Platelet Volume 9.7 fL (7.4-10.4); Platelet Count 307 K/uL (130-400); RDW Coefficient of Variation 12.9 % (11.5-14.5); RDW Standard Deviation 44.6 fL (36.4-46.3); Red Blood Count 4.47 M/uL (4.7-6.1); White Blood Count 12.55 K/uL (4.8-10.8)
[2019-08-30] MEDS: POTASSIUM CHLORIDE / WTR 10 MEQ/100 ML PLCT IV SCH ×3 (10:57→14:48)
[2019-08-30 11:14] LABS: Albumin Level 4.1 gm/dl (3.4-5.0); Bilirubin,Total 2.1 mg/dl (0.2-1); Creatinine Clr Calc Pharmacy 99.9 ml/min; Est GFR (African American) 114.9; Est GFR (Non-African American) 99.2; Potassium 3.6 mmol/L (3.5-5.1); Total Protein 8.1 gm/dl (6.4-8.2)
[2019-08-30 11:40] LABS: Magnesium 1.6 mg/dl (1.8-2.4); Phosphorus 1.4 mg/dl (2.5-4.9)
--- NOTE | 2019-08-30 11:55 | XRay Report ---
XR chest 1V portable HISTORY: Aspiration COMPARISON: None. FINDINGS: The lungs are clear. Cardiac silhouette is normal in size. No pleural effusions. No pneumot horax. IMPRESSION: No acute process. ACT 112: Negative or not required by law. Electronically signed by: Keyon Manzano M.D. 08/30/2019 11:54 AM
[2019-08-30] MEDS: CEROVITE ADV FORMULA TAB PO SCH (12:13)
[2019-08-30] MEDS ORDERED: levETIRAcetam 750 MG in 0.9 % SODIUM CHLORIDE 100 ML IV ONE ×2 (12:30→20:00)
[2019-08-30 13:06] LABS: INR 1.1 (0.9-1.1); Prothrombin Time 11.2 Seconds (9.0-12.0)
--- NOTE | 2019-08-30 14:06 | CT Scan Report ---
HEAD CT NONCONTRAST CT DOSE: 1246.96 mGy.cm HISTORY: meningitis, hydro, worsening ms TECHNIQUE: Multiaxial CT images of the head were performed without the use of intravenous contrast. A utomated exposure control was utilized for this study. A dose lowering technique was utilized adheri ng to the principles of ALARA. Comparison: Head CT 08/24/2019. Head CT 02/12/2019. Findings: Moderate motion artifact. No acute intracranial hemorrhage, midline shift or mass effect is present. Mild to moderate hydrocephalus and sulcal effacement is similar to the prior CT examination s. Periventricular hypodensity is unchanged. There are no extra axial collections. There are no findi ngs to suggest acute dural sinus thrombosis or acute territorial infarct. The appearance of the brain is unchanged. There are no significant calvarial abnormalities. IMPRESSION: 1. Motion artifact. No change in mild to moderate hydrocephalus compared to the prior studies. Stable periventricular hypodensity which favors transependymal flow of CSF. 2. No acute intracranial hemorrhage. ACT 112: Negative or not required by law. Electronically signed by: Keyon Manzano M.D. 08/30/2019 2:04 PM
--- NOTE | 2019-08-30 14:46 | Progress Notes ---
DATE: 08/30/2019 SUBJECTIVE: I am asked to see Mr. Roa because of ongoing symptoms of delirium. I have reviewed his medical history as well as his neurologic history. He has a history of seizure disorder. He has had meningitis, which has been culture negative. This began in November. It was thought there was also a brain abscess. The patient has been broadly covered. His CSF has been declining in a white count. He was last tapped in February where his white count was 11 and total glucose was 15 and CSF protein was 131. His Lyme titer in a CSF according to Infectious Disease was negative. He was admitted. He has had ongoing hydrocephalus since he was diagnosed with meningitis. Radiographically, this appears fairly stable recently. He was admitted with a change in his mentation. That has persisted. There was some concern this was related to the use of Lexapro. CURRENT MEDICATIONS: Reviewed. They include Valtrex for a vesicular lesion on his left buttock. Doxycycline orally for continued treatment of Lyme meningitis. Lexapro has been held. I have reviewed his labs. Ordered an ammonia level, which was normal. PHYSICAL EXAMINATION: GENERAL: The patient is inattentive, mildly sleepy. Oriented to person but not place. Follows occasional commands. Appears to be in no significant distress. NECK: Supple. No sinus tenderness. HEENT: Pupils are equal. I had difficulty visualizing the optic nerves. Motility was grossly normal, nugent were not testable. The face was symmetric. HEART: Tachycardic. VITAL SIGNS: Although most recent pulse was checked 81, 152/84, respirations 14, temperature 37.4, O2 sat 92%. NEUROLOGIC: The patient moves all 4 extremities symmetrically. Reflexes are brisk in the lower Toes are downgoing. IMPRESSION: This patient with a history of a meningeal process of uncertain etiology. Currently, appears delirious. White count is elevated. His last MRI showed persistent meningeal enhancement of the ventricular surface. Differential includes worsening hydrocephalus. Ongoing meningeal process. Etiology of a meningeal process is unclear, possibly an aseptic meningitis, viral, fungal, tuberculosis, Lyme, malignancy, sarcoid. HSV. Low blood sugars often seen in tuberculosis, bacterial, sarcoidosis. PLAN: Lumbar puncture. We will attempt a lumbar puncture at bedside, if unsuccessful then lumbar puncture under fluoroscopic guidance. This will guide any empiric therapy. I have taken the liberty to order Keppra to be given intravenously. The patient has had some vomiting. I do not see anything clinically that subject subclinical status. I agree with holding Lexapro, although doubt we are seeing a serotonin syndrome.
[2019-08-30] MEDS ORDERED: VANCOMYCIN CONSULT ACTIVE PRN (15:01)
--- NOTE | 2019-08-30 15:23 | Pharmacy Report ---
Pharmacy Abx Dose Short Note - Date of Service August 30, 2019 - Assessment & Plan Assessment 39 year old M receiving vancomycin/Rocephin for treatment of meningitis Day # 1 of antimicrobial therapy. Plan Vancomycin * Patient meets criteria for vancomycin AUC dosing nomogram * AUC/TOVA is the preferred PK/PD target for vancomycin * Target AUC/TOVA = 400-600 * AUC guided dosing is effective and associated with decreased risk of nephrotoxicity Pharmacy will continue to follow and will adjust dose/frequency as necessary. Thank you.
[2019-08-30] MEDS ORDERED: VANCOMYCIN HCL 1,750 MG in SODIUM CHLORIDE 0.9% 500 ML IV ONE (15:30)
[2019-08-30 15:59] LABS: Total Protein CSF 648.6 mg/dl (15-45)
[2019-08-30 16:45] LABS: Appearance CSF Clear; CSF Count Tube # 3; CSF Xanthrochromic Xanthochromic; Color CSF Yellow; Red Blood Cell CSF (A) 1 /uL (0-); Red Blood Cell CSF (B) 1 /uL (0-); White Blood Cell CSF (B) 44 /uL (0-5)
[2019-08-30 16:49] LABS: White Blood Cell CSF (A) 41 /uL (0-5)
[2019-08-30 17:15] LABS: Appearance Urine Clear (Clear); Bacteria Urine Automated Negative (Negative); Bilirubin Urine Negative (Negative); Blood Urine Negative (Negative); Color Urine Yellow; Glucose Urine UA Negative (Negative); Ketones Urine Negative (Negative); Leukocyte Esterase Urine Negative (Negative); Nitrite Urine Negative (Negative); RBC Urine Automated 0-4 /hpf (0-4); Specific Gravity Urine 1.011 (1.000-1.030); Urobilinogen Urine Negative (Negative); WBC Urine Automated 0 /hpf (0-5)
[2019-08-30] MEDS ORDERED: ACYCLOVIR SOD 700 MG in DEXTROSE 5% 250 ML IV SCH (17:15)
[2019-08-30 17:18] LABS: Protein Urine Trace (Negative)
[2019-08-30 17:20] LABS: Sulfosalicylic Acid Urine Positive (Negative)
[2019-08-30 17:31] LABS: Cryptococcus neoformans/ga PCR Not Detected (NotDetected); Cytomegalovirus PCR Not Detected (NotDetected); Enterovirus PCR Not Detected (NotDetected); Escherichia coli K1 PCR Not Detected (NotDetected); Haemophilius influenzae PCR Not Detected (NotDetected); Herpes Simplex Virus 1 PCR Not Detected (NotDetected); Herpes Simplex Virus 2 PCR Not Detected (NotDetected); Human Herpes Virus 6 PCR Not Detected (NotDetected); Human Parechovirus PCR Not Detected (NotDetected); Listeria monocytogenes PCR Not Detected (NotDetected); Neisseria meningitidis PCR Not Detected (NotDetected); Streptococcus agalactiae PCR Not Detected (NotDetected); Streptococcus pneumoniae PCR Not Detected (NotDetected); Varicella Zoster Virus PCR Not Detected (NotDetected)
[2019-08-30] MEDS: cloNIDine HCL 0.1 MG TAB PO PRN (18:00)
[2019-08-30] MEDS: ACYCLOVIR SOD 800 MG in DEXTROSE 5% 250 ML IV SCH (19:15)
[2019-08-30] MEDS: cefTRIAXone SODIUM 2,000 MG in DEXTROSE 5% 50 ML IV SCH (19:41)
[2019-08-30] MEDS: DOXYCYCLINE HYCLATE 100 MG in DEXTROSE 5% 100 ML IV SCH (20:45)
[2019-08-30] MEDS: VANCOMYCIN HCL 1,000 MG in SODIUM CHLORIDE 0.9% 250 ML IV SCH (22:57)
--- NOTE | 2019-08-30 23:12 | Progress Notes ---
DATE: 08/30/2019 I had the opportunity to review the patient's [facility] records. 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 He had been symptomatic for several months prior with headache and chills. I do not know when that lumbar puncture was performed but by report had culture negative. He was treated with ceftriaxone for 14 days. He was evaluated at [facility] at multiple visits. In November, he was seen on multiple occasions, imaging showed a questionable abscess, Flagyl was added to his regimen. He was found to be hepatitis C positive. He had SIADH. His treatment of brain abscess included vancomycin, ceftriaxone and Flagyl. On 11/24/2018, he was admitted to [facility] for hydrocephalus and uncal herniation. On the admission in December of 2018, Keppra was started, I am assuming either empirically or there was a clinical question of seizure, he was described as having sepsis with acute organ dysfunction. On 01/08/2019, he was readmitted, there was a questionable seizure prior to admission, he was placed on meropenem. Another admission on 01/27/2019 for headache. In 02/16/2019, he presented having been found down by home health. His girlfriend was found beside him with rigor mortis. When he was taken to [facility], his O2 sat was 60% and he had agonal breathing. I believe some corroboration they had used heroin. On that visit, a transthoracic echo showed a possible vegetation on the anterior tricuspid leaflet. A GROVER was recommended although it is unclear to this examiner whether or not that was performed. He was readmitted on 02/24/2019. His testing included a negative PPD, negative QuantiFERON for tuberculosis. CSF electrophoresis was notable for greater than 5 bands (differential including GAS PIPE LAYER inflammation, multiple sclerosis and infection.) CSF Lyme was negative on 2 occasions. FTA was negative. CSF VDRL based on serum was 32. Bacterial meningitis antibody panel negative. Cryptococcal antigen negative. Cytology by report was said to show an atypical B cell. Multiple cytology is negative. EBV negative. Enterovirus titer negative. TEODORO negative. Thiamine 8. West Nile negative. CT chest, abdomen and pelvis were nonrevealing. CT of the sinuses was unremarkable. On this admission to [facility], visualized paranasal sinuses appear unremarkable as did the mastoids to this examiner. IMPRESSION: This patient has a chronic meningitis of nearly a years' duration. CSF findings currently are notable for an elevated white blood cell count compared to last lumbar puncture with 73 monocytes and 27 polys. Total protein is much elevated at 645. There continues to be hypoglycorrhea. Agree with empiric antibiotics via infectious disease. Would recommend contacting neurosurgery for an opinion regarding increased intracranial pressure and its treatment. The patient appears to be symptomatic as well symptoms including vomiting and incontinence. It may be helpful for neurosurgery to be on board as well in case the patient needs a brain biopsy in the future. Other testing including a GROVER, which I do not believe had ever been performed to rule out valvular vegetations, consider HTLV-1 and 2. If the CSF was repeated again consider cytometry on the CSF because of prior atypical B cells. Would recommend an TEODORO again. I think it is reasonable to perform an MRA of the head, although be unlikely to see vasculitis and in MRV. The differential of hypoglycorrhea include bacterial meningitis Mycobacterium, sarcoidosis among others. We will follow with you.
[2019-08-31] MEDS: D5NSS + 20MEQ KCL 20 MEQ/1,000 ML BAG IV SCH ×4 (01:32→20:01)
[2019-08-31] MEDS: ACYCLOVIR SOD 800 MG in DEXTROSE 5% 250 ML IV SCH ×3 (01:33→17:36)
[2019-08-31] MEDS: ACYCLOVIR 5% OINT 15 GM TUBE EXT SCH ×6 (01:37→20:08)
[2019-08-31] MEDS: cefTRIAXone SODIUM 2,000 MG in DEXTROSE 5% 50 ML IV SCH ×2 (04:10→16:54)
[2019-08-31 06:02] LABS: Basophils # (auto) 0.02 K/uL (0-0.2); Basophils % (auto) 0.2 %; Eosinophils # (auto) 0.01 K/uL (0-0.5); Eosinophils % (auto) 0.1 %; Hematocrit (blood only) 40.2 % (42-52); Hemoglobin 14.1 g/dL (14.0-18.0); Lymphocytes # (auto) 1.56 K/uL (1.2-3.4); Lymphocytes % (auto) 15.5 %; Mean Corpuscular Hemoglobin 34.2 pg (25-34); Mean Corpuscular Hgb Conc 35.1 g/dL (32-36); Mean Corpuscular Volume 97.6 fL (80-100); Mean Platelet Volume 9.4 fL (7.4-10.4); Monocytes # (auto) 0.78 K/uL (0.11-0.59); Monocytes % (auto) 7.7 %; Neutrophils % (auto) 75.5 %; Platelet Count 276 K/uL (130-400); RDW Standard Deviation 46.3 fL (36.4-46.3); Red Blood Count 4.12 M/uL (4.7-6.1); White Blood Count 10.07 K/uL (4.8-10.8)
[2019-08-31 06:39] LABS: Albumin Level 3.6 gm/dl (3.4-5.0); BUN Creatinine Ratio 9.5 (10-20); Calcium 9.4 mg/dl (8.5-10.1); Creatinine Clr Calc Pharmacy 126.3 ml/min; Est GFR (African American) 133.2; Est GFR (Non-African American) 114.9; Potassium 3.5 mmol/L (3.5-5.1)
[2019-08-31 06:47] LABS: Albumin Globulin Ratio 0.9 (0.9-2); Bilirubin,Total 1.4 mg/dl (0.2-1); Total Protein 7.6 gm/dl (6.4-8.2)
[2019-08-31] MEDS: levETIRAcetam 750 MG in 0.9 % SODIUM CHLORIDE 100 ML IV SCH ×2 (07:28→19:51)
[2019-08-31] MEDS: ACETAMINOPHEN 500 MG TAB PO SCH ×4 (08:31→19:46)
--- NOTE | 2019-08-31 09:53 | Hospitalist Progress Note ---
Date of Service August 31, 2019 Assessment & Plan (1) Altered mental status: (2) Headache: (3) History of Lyme disease: (4) History of meningitis: (5) Hydrocephalus: (6) Nausea: (7) Vomiting: Patient with acutely altered mental status & headache x 1 week per his mother. Toxic Metabolic encephalopathy sec to Meningitis Likely Lyme Lyme screen + (Equivocal IgM), but patient has hx of Lyme meningitis. WB +Lyme. Anaplasma smear is negative. Continue Ceftriaxone and Doxycycline UA & Cx pending. CT of head and abdomen/pelvis unrevealing. With hx of meningitis, anoxic brain injury, brain abscess, and hydrocephalus, Negative MRI Neurology on case, rec DC MSO4 and start Toradol, Reglan, and Benadryl for pain, and stopping Lexapro Aspiration, fall, & seizure precautions No nuchal rigidity. (8) HTN (hypertension): BP elevated in ED. DC Tele (9) SIADH (syndrome of inappropriate ADH production): (10) Alkalosis: (11) Hyponatremia: (12) Hypokalemia: Chronic SIADH, but very dehydrated on exam. Worsened hyponatremia and also hypokalemia likely secondary to vomiting, decreased appetite, and poor PO intake overall. Lactated ringer's x 2 bags PO Potassium Continue PO intake as well as tolerated (13) Hyperbilirubinemia: Elevated bilirubin level to 3.2 with otherwise normal LFTs, but + vomiting RUQ US-fatty Liver, Gallstones (14) Subclinical hyperthyroidism: TSH low. T4 normal. Likely subclinical hyperthyroidism in the setting of acute issue. (15) History of heroin use: (16) History of opioid abuse: Tox screen negative. (17) DVT prophylaxis: Lovenox Shingles-Valtrex Still not at MS baseline, LP done by Neuro yesterday, CSF c/w Meningitis, Vanco, Rocephin, Doxy and Acyclovir on board, worked Labs checked ROS- Mild Headache, No Visual Changes, no Nausea, no Vomiting, No Fever, No Chills, No Neck Pain or Stiffness, No Chest Pain, No Palpitations, No SOB, No AUGUSTE, No Cough, No Sputum, No Wheezing, No Abdominal Pain, No Diarrhea, No Hematemesis, No Hemoptysis, No Unexpected Weight Loss, No Flank pain, No Melena, No Hematochezia, No Frequency, No Urgency, No Burning, No Hematuria, No Rashes, No Diaphoresis. Appetite is Normal Physical Exam Gen-AAO x 1, NAD, Afebrile, MS improving Head-NCAT, EOMI, PERRLA, Anicteric Sclera, No Posterior Pharyngeal Erythema Neck-Supple, No JVD, No Thyromegaly, No Masses, No LAD, No Bruits Lungs-Clear to Auscultation Bilaterally, No Rales, No Rhonchi, No Wheezing, No Crepitus Chest-No S4, +S1, +S2, No S3, No Murmurs, No Rubs, No Gallops, No Ectopy Abdomen-Soft, Bowel Sounds Present, Non Tender, Non Distended, No Hepatomegaly, No Splenomegaly, No Palpable Masses, No Rebound, No Rigidity, No Guarding Musculoskeletal-Full Range of Motion Bilaterally, No CVAT Extremities-No Cyanosis, No Clubbing, No Edema Nuero-Cranial Nerves II-XII grossly intact, Motor WNL, DTRs WNL, Strength WNL, Non Focal Psych-Pleasant, can't follow commands Admission and Anticipated Discharge Date Admission Date: August 24, 2019 Results & Data Results & Data ([facility]) Vital Signs (Past 12 Hours) Vital Signs Temp Pulse Resp BP BP Pulse Ox 08/31/19 07:37 155/104 H 08/31/19 07:03 36.9 C 104 H 18 148/104 H 155/119 H 99 08/30/19 23:00 37.3 C 110 H 20 163/104 H 95 (1) Hydrocephalus Hydrocephalus type: other Qualified Code(s): G91.8 - Other hydrocephalus (2) HTN (hypertension) Hypertension type: unspecified Qualified Code(s): I10 - Essential (primary) hypertension
[2019-08-31] MEDS: POTASSIUM CHLORIDE 20 MEQ TABCR PO SCH ×4 (10:05→20:48)
[2019-08-31] MEDS: PANTOprazole 40 MG in SYRINGE 0 ML IV SCH ×2 (10:53→20:49)
[2019-08-31] MEDS: DOXYCYCLINE HYCLATE 100 MG in DEXTROSE 5% 100 ML IV SCH ×2 (11:01→19:47)
[2019-08-31] MEDS: VANCOMYCIN HCL 1,000 MG in SODIUM CHLORIDE 0.9% 250 ML IV SCH ×2 (11:57→20:01)
--- NOTE | 2019-08-31 12:59 | Operative Report (OR) ---
DATE OF OPERATION: 08/30/2019 LUMBAR PUNCTURE PROCEDURE NOTE After informed consent was obtained by Dr. Blackwell, the patient was prepped and draped in sterile fashion. 1% lidocaine was given at L3-L4 interspace. The interspace was cannulated with minimal difficulty. Opening pressure was 370. Closing pressure was not obtained. CSF was xanthochromic. Approximately 10 mL were sent for appropriate studies. These included viral cultures, culture and sensitivity, AFB and fungal cytology. The patient tolerated the procedure well. He will be supine for approximately 6 hours. I attest to the content of the Intraoperative Record and any orders documented therein. Any exception s are noted below.
[2019-08-31] MEDS: CEROVITE ADV FORMULA TAB PO SCH (13:02)
[2019-08-31] MEDS: HEPARIN SOD 5,000 UNIT/0.5 ML VIAL SQ SCH ×3 (13:07→22:18)
--- NOTE | 2019-08-31 21:37 | Progress Notes ---
DATE: 08/31/2019 SUBJECTIVE: I am seeing Mr. Roa in followup of chronic meningitis and secondary hydrocephalus. Lumbar puncture has been reviewed. Opening pressure was 370. Cultures are negative. Viral titers negative. Micro Gram stain negative. CSF, no growth to date. AFB pending. Fungal culture pending. Cytology not yet performed. The patient is markedly improved today. He is still complaining of headache and some stiff neck. OBJECTIVE: On my exam, he is awake, alert, oriented x3, still appearing mildly ill. Neck is reasonably supple. There is normal extraocular motility, facial symmetry, and symmetric strength. IMPRESSION: Chronic meningitis with hydrocephalus. PLAN: 1. We have sent images to neurosurgery [place] to review. Question is if the patient is continuing in part to be symptomatic for hydrocephalus. Ten to twelve months after the onset of this meningeal process, the patient still has increased intracranial pressure. He seems symptomatic given nausea, vomiting, and incontinence. 2. I would recommend an infectious disease consult. 3. Consider transfer patient to [facility], for further evaluation. 4. Consider thiamine deficiency and treatment empirically. Remotely the patient's thiamine level was 8, which is at the lower limit of normal. 5. Recommend CTA of head and neck and CTV of the venous sinuses. Evaluate for vasculopathy, although the resolution would likely be low. The patient's history has been complicated by what is presumed to be seizure. The patient is doing better on IV Keppra. However, seizure itself does not explain the entire clinical picture. We will follow with you.
[2019-08-31] MEDS: KETOROLAC 30 MG/ML VIAL IV PRN (22:16)
[2019-09-01] MEDS: ACYCLOVIR SOD 800 MG in DEXTROSE 5% 250 ML IV SCH ×4 (01:01→19:16)
[2019-09-01] MEDS: ACYCLOVIR 5% OINT 15 GM TUBE EXT SCH ×6 (01:02→21:36)
[2019-09-01] MEDS: cefTRIAXone SODIUM 2,000 MG in DEXTROSE 5% 50 ML IV SCH ×2 (02:53→15:15)
[2019-09-01] MEDS ORDERED: VANCOMYCIN TROUGH ONE ×2 (03:30→07:30)
[2019-09-01] MEDS: VANCOMYCIN HCL 1,000 MG in SODIUM CHLORIDE 0.9% 250 ML IV SCH ×3 (04:34→19:39)
[2019-09-01] MEDS: D5NSS + 20MEQ KCL 20 MEQ/1,000 ML BAG IV SCH ×3 (04:34→19:32)
[2019-09-01] MEDS: HEPARIN SOD 5,000 UNIT/0.5 ML VIAL SQ SCH ×3 (06:04→22:28)
[2019-09-01 08:04] LABS: Basophils # (auto) 0.02 K/uL (0-0.2); Basophils % (auto) 0.3 %; Eosinophils # (auto) 0.02 K/uL (0-0.5); Eosinophils % (auto) 0.3 %; Hematocrit (blood only) 39.3 % (42-52); Hemoglobin 13.6 g/dL (14.0-18.0); Immature Granulocytes # (auto) 0.09 K/uL (0.00-0.02); Immature Granulocytes % (auto) 1.4 %; Lymphocytes # (auto) 1.06 K/uL (1.2-3.4); Lymphocytes % (auto) 16.6 %; Mean Corpuscular Hemoglobin 33.7 pg (25-34); Mean Corpuscular Hgb Conc 34.6 g/dL (32-36); Mean Corpuscular Volume 97.3 fL (80-100); Mean Platelet Volume 9.6 fL (7.4-10.4); Monocytes # (auto) 0.68 K/uL (0.11-0.59); Monocytes % (auto) 10.7 %; Neutrophils % (auto) 70.7 %; Platelet Count 252 K/uL (130-400); RDW Standard Deviation 45.8 fL (36.4-46.3); Red Blood Count 4.04 M/uL (4.7-6.1); White Blood Count 6.37 K/uL (4.8-10.8)
[2019-09-01 08:34] LABS: BUN Creatinine Ratio 6.5 (10-20); Calcium 9.5 mg/dl (8.5-10.1); Creatinine Clr Calc Pharmacy 124.6 ml/min; Est GFR (African American) 132.5; Est GFR (Non-African American) 114.3; Potassium 3.4 mmol/L (3.5-5.1)
[2019-09-01] MEDS: ACETAMINOPHEN 500 MG TAB PO SCH ×4 (09:33→19:40)
[2019-09-01] MEDS: DOXYCYCLINE HYCLATE 100 MG in DEXTROSE 5% 100 ML IV SCH ×2 (09:33→19:35)
[2019-09-01] MEDS: POTASSIUM CHLORIDE 20 MEQ TABCR PO SCH ×3 (09:36→21:37)
[2019-09-01] MEDS: PANTOprazole 40 MG in SYRINGE 0 ML IV SCH ×2 (09:37→21:36)
[2019-09-01] MEDS: levETIRAcetam 750 MG in 0.9 % SODIUM CHLORIDE 100 ML IV SCH ×2 (09:37→19:21)
--- NOTE | 2019-09-01 10:29 | Hospitalist Progress Note ---
Date of Service September 01, 2019 Assessment & Plan (1) Altered mental status: (2) Headache: (3) History of Lyme disease: (4) History of meningitis: (5) Hydrocephalus: (6) Nausea: (7) Vomiting: Patient with acutely altered mental status & headache x 1 week per his mother. Toxic Metabolic encephalopathy sec to Meningitis Likely Lyme Lyme screen + (Equivocal IgM), but patient has hx of Lyme meningitis. WB +Lyme. Anaplasma smear is negative. Continue Ceftriaxone and Doxycycline UA & Cx pending. CT of head and abdomen/pelvis unrevealing. With hx of meningitis, anoxic brain injury, brain abscess, and hydrocephalus, Negative MRI Neurology on case, rec DC MSO4 and start Toradol, Reglan, and Benadryl for pain, and stopped Lexapro Aspiration, fall, & seizure precautions No nuchal rigidity. (8) HTN (hypertension): BP elevated in ED. DC Tele (9) SIADH (syndrome of inappropriate ADH production): (10) Alkalosis: (11) Hyponatremia: (12) Hypokalemia: Chronic SIADH, but very dehydrated on exam. Worsened hyponatremia and also hypokalemia likely secondary to vomiting, decreased appetite, and poor PO intake overall. Lactated ringer's x 2 bags PO Potassium Continue PO intake as well as tolerated (13) Hyperbilirubinemia: Elevated bilirubin level to 3.2 with otherwise normal LFTs, but + vomiting RUQ US-fatty Liver, Gallstones (14) Subclinical hyperthyroidism: TSH low. T4 normal. Likely subclinical hyperthyroidism in the setting of acute issue. (15) History of heroin use: (16) History of opioid abuse: Tox screen negative. (17) DVT prophylaxis: Lovenox Shingles-Valtrex MS a lot better, LP done by Neuro 08/29, CSF c/w Meningitis, Vanco, Rocephin, Doxy and Acyclovir on board, worked well Niece says baseline he sleeps much of the day, not sure of his MS Baseline, Keeps refusing SC Heparin Labs checked ROS- No Headache, No Visual Changes, no Nausea, no Vomiting, No Fever, No Chills, No Neck Pain or Stiffness, No Chest Pain, No Palpitations, No SOB, No AUGUSTE, No Cough, No Sputum, No Wheezing, No Abdominal Pain, No Diarrhea, No Hematemesis, No Hemoptysis, No Unexpected Weight Loss, No Flank pain, No Melena, No Hematochezia, No Frequency, No Urgency, No Burning, No Hematuria, No Rashes, No Diaphoresis. Appetite is Normal Physical Exam Gen-AAO x 1, NAD, Afebrile, MS improving Head-NCAT, EOMI, PERRLA, Anicteric Sclera, No Posterior Pharyngeal Erythema Neck-Supple, No JVD, No Thyromegaly, No Masses, No LAD, No Bruits Lungs-Clear to Auscultation Bilaterally, No Rales, No Rhonchi, No Wheezing, No Crepitus Chest-No S4, +S1, +S2, No S3, No Murmurs, No Rubs, No Gallops, No Ectopy Abdomen-Soft, Bowel Sounds Present, Non Tender, Non Distended, No Hepatomegaly, No Splenomegaly, No Palpable Masses, No Rebound, No Rigidity, No Guarding Musculoskeletal-Full Range of Motion Bilaterally, No CVAT Extremities-No Cyanosis, No Clubbing, No Edema Nuero-Cranial Nerves II-XII grossly intact, Motor WNL, DTRs WNL, Strength WNL, Non Focal Psych-Pleasant, cooperative Admission and Anticipated Discharge Date Admission Date: August 24, 2019 Results & Data Results & Data ([facility]) Vital Signs (Past 12 Hours) Vital Signs Temp Pulse Resp BP Pulse Ox 09/01/19 07:13 36.8 C 86 16 164/117 H 95 08/31/19 23:04 36.6 C 86 18 146/95 H 95 (1) Hydrocephalus Hydrocephalus type: other Qualified Code(s): G91.8 - Other hydrocephalus (2) HTN (hypertension) Hypertension type: unspecified Qualified Code(s): I10 - Essential (primary) hypertension
--- NOTE | 2019-09-01 10:29 | Pharmacy Report ---
Pharmacy Abx Dose Short Note - Date of Service September 01, 2019 - Assessment & Plan Assessment 39 year old M receiving vancomycin for possible meningitis concern Day # 3 of antimicrobial therapy. Plan Vancomycin * Level this AM came back therapeutic at ~16 mcg/ml (goal 15-20 mcg/ml) * Continue same vancomycin dosing / plan to recheck trough tomorrow to ensure no accumulation * Neurology consulted to also follow the patient - recommend ID consult/possible transfer to [facility] for further evaluation Pharmacy will continue to follow and will adjust dose/frequency as necessary. Thank you.
[2019-09-01] MEDS ORDERED: OPTIRAY 320 125ml IV PRN (10:38)
--- NOTE | 2019-09-01 11:19 | CT Scan Report ---
CT ANGIOGRAM OF THE BRAIN COMBO CLINICAL HISTORY: Chronic aseptic meningitis. COMPARISON STUDY: CT of the brain dated 08/30/2019. TECHNIQUE: Unenhanced axial CT scan of the brain is performed. Subsequently, following the IV adminis tration of 120 cc of Optiray 320, CT angiogram of the brain was performed from the skull base to the vertex. Images are reviewed in the axial, sagittal, and coronal planes. 3-D MIPS images are created a nd assessed. IV contrast was administered without complication. A dose lowering technique was utiliz ed adhering to the principles of ALARA. The unenhanced examination is degraded by motion artifact. Th is was performed twice in an effort to improve image quality. CT DOSE: 1615.11 mGy.cm FINDINGS: Brain parenchyma: Hydrocephalus is unchanged from yesterday. Hypodensity the periventricular region i s again noted and favors transependymal flow of CSF. There is no hemorrhage, mass effect, or evidence of acute territorial ischemia by CT criteria. There is no evidence of enhancing mass lesion on the a ngiogram phase images. No extra-axial fluid collection is seen. Bliss-white matter differentiation is preserved. Ventricles, sulci, and cisterns: Hydrocephalus is unchanged from yesterday. The sulci and cisterns ar e normal in appearance. CT angiogram of the brain: There are bilateral posterior communicating arteries. The internal carotid arteries are widely patent, as are the anterior and middle cerebral arteries. Only the right verteb ral artery is identified at the skull base. The right vertebral artery is patent, as is the basilar. The basilar is diminutive. There is origin of both posterior cerebral arteries which are patent . The right P1 segment is atretic versus occluded. No aneurysm is identified throughout the intracran ial circulation. Dural sinuses: The dural sinuses are not opacified, likely due to phase of enhancement. Orbits: The bony orbits are intact. The orbital contents are normal as visualized. Sinuses and mastoids: The visualized paranasal sinuses are clear. The mastoid air cells are well pneu matized. Calvarium: Unremarkable. IMPRESSION: 1. Motion degraded examination. 2. There is no hemorrhage, mass effect, or evidence of acute territorial ischemia by CT criteria. 3. Hydrocephalus with evidence of transependymal flow of CSF is similar to yesterday. 4. Only the right vertebral artery is identified at the skull base. 5. The basilar artery is diminutive and there is origin of both posterior cerebral arteries. 6. The P1 segment on the right is atretic versus occluded. This is of doubtful significance. 7. The dural sinuses are not opacified, likely due to phase of enhancement. These are not diagnostica lly assessed. ACT 112: Negative or not required by law. Electronically signed by: Tyshawn Chávez M.D. 09/01/2019 11:18 AM
--- NOTE | 2019-09-01 12:01 | CT Scan Report ---
CT angio neck with con HISTORY: Mental status change chronic meningitis, eval vasculitis TECHNIQUE: Multiaxial CT angiography of the neck was performed IV contrast: 120 cc nonionic All thang urements were calculated based on NASCET criteria. Maximum intensity projection images were also obt ained. A dose lowering technique was utilized adhering to the principles of ALARA. COMPARISON STUDY: None. FINDINGS: The aortic arch and proximal great vessels are widely patent. There is no significant sten osis, occlusion, or dissection identified within the bilateral common carotid, internal carotid, or v ertebral arteries. The left vertebral artery is congenitally small. IMPRESSION: No significant stenosis, occlusion, or dissection identified within the carotid or vertebral arteries . ACT 112: Negative or not required by law. The above report was generated using voice recognition software. It may contain grammatical, syntax or spelling errors. Electronically signed by: Volodymyr Russo M.D. 09/01/2019 12:00 PM
[2019-09-01] MEDS: POT PHOSPHATE MONOBASIC W/ SOD TAB PO SCH ×3 (12:24→21:37)
[2019-09-01] MEDS: MAGNESIUM OXIDE 400 MG TAB PO SCH ×2 (12:24→21:37)
[2019-09-01] MEDS: CEROVITE ADV FORMULA TAB PO SCH (12:25)
[2019-09-01] MEDS: cloNIDine HCL 0.1 MG TAB PO PRN (12:28)
--- NOTE | 2019-09-01 18:15 | Progress Notes ---
DATE: 09/01/2019 SUBJECTIVE: I am seeing the patient in followup chronic meningitis. Cultures to date have been unremarkable. Antithyroid antibody negative. CSF viral titers pending. Cytology does not appear to have made it on chart yet. The patient has been afebrile. Denies vomiting. Reports 1 week history of urinary incontinence. CTA neck unremarkable, CTA head, basilar diminutive, r vert only visualized. venous sinuses not seen likely related to timing of images and dye. PHYSICAL EXAMINATION: Awake, mild cognitive slowing. Oriented, although initially thought it was June. Neck is supple. Normal extraocular motility, visual nugent, facial symmetry. Symmetric strength. Normal [id number] and [id number]. Brisk lower extremity reflexes. No clonus. I attempted to ambulate him, but the patient had some instability with trunk balance. IMPRESSION: Chronic meningitis with hydrocephalus. The patient I believe is still symptomatic from hydrocephalus given that he urinary incontinence some nausea, gait instabiltiy. ASSESSMENT AND PLAN: The reason for his improvement between the day I initially saw him performed a lumbar puncutreand the following days unclear. New antibiotics were added. Keppra was given intravenously, although the EEG done the day or 2 prior, did not show any subclinical status and perhaps only 12 mL of CSF were removed. I would recommend discussion of plan with Infectious Disease. We have reached out to Neurosurgery to ask them to review the films. Certainly, if the patient were to have waxing and waning if he was declining, it may be appropriate for him to have a high volume lumbar puncture, to see if he improved clinically. This would argue that he was symptomatic for hydrocephalus. Consider transfer to [facility] evaluation and Neurosurgical consultation. Alternatively, consider these appointments as an outpatient. My only concern in that regard is that the patient has at times been unreliable. On a prior admission there was a consideration of whether or not there may have been a valvular vegetation. The patient was to have a transesophageal echo. I do not see that he has had that. Consider transesophageal echo. [facility]
[2019-09-02] MEDS: ACYCLOVIR SOD 800 MG in DEXTROSE 5% 250 ML IV SCH ×3 (00:27→17:33)
[2019-09-02] MEDS: ACYCLOVIR 5% OINT 15 GM TUBE EXT SCH ×5 (00:28→15:35)
[2019-09-02] MEDS: cefTRIAXone SODIUM 2,000 MG in DEXTROSE 5% 50 ML IV SCH ×2 (02:10→15:35)
[2019-09-02] MEDS: DiphenhydrAMINE HCL 50 MG/ML VIAL IV PRN (03:04)
[2019-09-02] MEDS: D5NSS + 20MEQ KCL 20 MEQ/1,000 ML BAG IV SCH (03:07)
[2019-09-02] MEDS: HydrALAZINE HCL 20 MG/ML VIAL IV PRN (03:23)
[2019-09-02] MEDS: VANCOMYCIN HCL 1,000 MG in SODIUM CHLORIDE 0.9% 250 ML IV SCH ×2 (03:25→11:38)
[2019-09-02] MEDS ORDERED: MoRPHine SULFATE 4 MG/ML 1 ML CARP\\VIAL IV STA (03:45)
[2019-09-02] MEDS ORDERED: MoRPHine SULFATE 4 MG/ML 1 ML CARP\\VIAL ONE (03:50)
[2019-09-02] MEDS: HEPARIN SOD 5,000 UNIT/0.5 ML VIAL SQ SCH ×3 (05:30→13:50)
[2019-09-02] MEDS: levETIRAcetam 750 MG in 0.9 % SODIUM CHLORIDE 100 ML IV SCH (07:45)
[2019-09-02] MEDS: ACETAMINOPHEN 500 MG TAB PO SCH ×4 (08:04→21:05)
[2019-09-02] MEDS: PANTOprazole 40 MG in SYRINGE 0 ML IV SCH (08:04)
[2019-09-02] MEDS: DOXYCYCLINE HYCLATE 100 MG in DEXTROSE 5% 100 ML IV SCH (08:04)
[2019-09-02] MEDS: POTASSIUM CHLORIDE 20 MEQ TABCR PO SCH ×2 (08:05→13:50)
[2019-09-02] MEDS: POT PHOSPHATE MONOBASIC W/ SOD TAB PO SCH ×3 (08:05→15:36)
[2019-09-02] MEDS: MAGNESIUM OXIDE 400 MG TAB PO SCH (08:06)
[2019-09-02 08:09] LABS: Basophils # (auto) 0.04 K/uL (0-0.2); Basophils % (auto) 0.4 %; Eosinophils # (auto) 0.02 K/uL (0-0.5); Eosinophils % (auto) 0.2 %; Hematocrit (blood only) 38.5 % (42-52); Hemoglobin 13.8 g/dL (14.0-18.0); Immature Granulocytes # (auto) 0.19 K/uL (0.00-0.02); Immature Granulocytes % (auto) 1.7 %; Lymphocytes # (auto) 1.41 K/uL (1.2-3.4); Lymphocytes % (auto) 12.5 %; Mean Corpuscular Hemoglobin 34.2 pg (25-34); Mean Corpuscular Hgb Conc 35.8 g/dL (32-36); Mean Corpuscular Volume 95.3 fL (80-100); Mean Platelet Volume 9.4 fL (7.4-10.4); Monocytes # (auto) 1.15 K/uL (0.11-0.59); Monocytes % (auto) 10.2 %; Neutrophils # (auto) 8.51 K/uL (1.4-6.5); Platelet Count 251 K/uL (130-400); RDW Coefficient of Variation 13.1 % (11.5-14.5); RDW Standard Deviation 45.2 fL (36.4-46.3); Red Blood Count 4.04 M/uL (4.7-6.1); White Blood Count 11.32 K/uL (4.8-10.8)
[2019-09-02 08:26] LABS: Albumin Level 3.7 gm/dl (3.4-5.0); Calcium 9.7 mg/dl (8.5-10.1); Creatinine Clr Calc Pharmacy 126.3 ml/min; Est GFR (African American) 133.2; Est GFR (Non-African American) 114.9; Magnesium 1.6 mg/dl (1.8-2.4); Potassium 3.6 mmol/L (3.5-5.1)
[2019-09-02 08:37] LABS: Albumin Globulin Ratio 0.9 (0.9-2); Bilirubin,Total 0.9 mg/dl (0.2-1); Globulin 3.9 gm/dl (2.5-4.0); Phosphorus 4.1 mg/dl (2.5-4.9); Total Protein 7.6 gm/dl (6.4-8.2)
--- NOTE | 2019-09-02 10:02 | Hospitalist Progress Note ---
Date of Service September 02, 2019 Assessment & Plan (1) Altered mental status: (2) Headache: (3) History of Lyme disease: (4) History of meningitis: (5) Hydrocephalus: (6) Nausea: (7) Vomiting: Patient with acutely altered mental status & headache x 1 week per his mother. Toxic Metabolic encephalopathy sec to Meningitis/hydrocephalus Lyme screen + (Equivocal IgM), but patient has hx of Lyme meningitis. WB +Lyme. Anaplasma smear is negative. Ceftriaxone and Doxycycline given on admission, ceftriaxone continued through August 25, doxycycline continued during the admission, switch from p.o. to IV form on August 29 UA -negative CT of head and abdomen/pelvis unrevealing. With hx of meningitis, anoxic brain injury, brain abscess, and hydrocephalus, Negative MRI Neurology initially recommended for headache Toradol, Reglan, and Benadryl for pain, and stopped Lexapro Aspiration, fall, & seizure precautions + nuchal rigidity Neurology consulted, patient underwent LP on August 29. CSF consistent with meningitis, opening pressure elevated, protein elevated, WBC elevated, glucose decreased. On August 29, antibiotics started vancomycin, Rocephin restarted, doxycycline continued, IV acyclovir. 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 He was admitted to [facility] in November 2018 for questionable brain abscess, and treated with vancomycin and ceftriaxone, Flagyl History of hydrocephalus possible uncal herniation There was concerned also on TTE for possible vegetation on anterior tricuspid leaflet, and GROVER was recommended, not clear if GROVER was obtained. Discussed with neurology, given that patient is not making significant progress, continues to be confused, has imbalance issues and incontinence, strongly recommend transfer to tertiary Medical Center for further evaluation by infectious disease and neurosurgery. [facility] contacted, Dr. Garnica, from neurology willing to accept the patient for further evaluation. (8) HTN (hypertension): BP elevated in ED. Blood pressure acceptable (9) SIADH (syndrome of inappropriate ADH production): (10) Alkalosis: (11) Hyponatremia: (12) Hypokalemia: Chronic SIADH, but very dehydrated on exam, on admission Worsened hyponatremia and also hypokalemia likely secondary to vomiting, decreased appetite, and poor PO intake overall. Lactated ringer's x 2 bags PO Potassium Continue PO intake as well as tolerated Hyponatremia, hypokalemia now resolved. (13) Hyperbilirubinemia: Elevated bilirubin level to 3.2 with otherwise normal LFTs, but + vomiting RUQ US-fatty Liver, Gallstones (14) Subclinical hyperthyroidism: TSH low. T4 normal. Likely subclinical hyperthyroidism in the setting of acute issue. (15) History of heroin use: (16) History of opioid abuse: Tox screen negative. (17) DVT prophylaxis: Lovenox Shingles (small rash on patient's buttocks)- Valtrex started on August 26 Admission and Anticipated Discharge Date Admission Date: August 24, 2019 Subjective Patient is lying in bed, complains of headache. Says he cannot move his head very much otherwise it hurts more. Patient tells me he can ambulate, after talking to nursing staff, patient is extremely wobbly and cannot ambulate or stand by himself. Per nursing staff, patient continues to be incontinent. And confused. Patient says his been having headache for some time, however he does not remember what exactly brought him to the hospital. Currently denies any chest pain, shortness of breath, abdominal pain. Review of Systems Review of Systems: All systems reviewed & are unremarkable except as noted in HPI & below All systems reviewed however, however patient does not answer all questions appropriately. He does complain of headache. Constitutional: no fever and no chills Respiratory: no cough and no dyspnea Cardiovascular: no chest pain and no palpitations Gastrointestinal: no abdominal pain Genitourinary: + urinary incontinence Neurologic: + headache(s) and + confusion Physical Exam Physical Exam: Gen-young male lying in bed, in no acute distress Head-NCAT, EOMI, PERRL, anicteric Sclera Neck- + nuchal rigidity, No JVD Lungs-Clear to Auscultation Bilaterally, No Rales, No Rhonchi, No Wheezing Chest- RRR, No Murmurs noted Abdomen-Soft, Bowel Sounds Present, Non Tender, Non Distended, No Rebound, No Rigidity, No Guarding Musculoskeletal-patient is able to move his lower and upper extremities, difficulty to move his neck due to pain Extremities-no LE edema, no sensory loss noted Neuro -patient is awake and answering questions, he does not answer all questions appropriately. He is able to move his upper and lower extremities, no sensory loss noted, difficulty moving his neck (did not try to ambulate the patient, per nursing staff patient is very unsteady) Results & Data Results & Data ([facility]) Vital Signs (Past 12 Hours) Vital Signs Temp Pulse Resp BP BP Pulse Ox 09/02/19 04:59 112 H 16 145/92 H 96 09/02/19 04:16 143/102 H 09/02/19 04:15 145/96 H 09/02/19 03:39 147/109 H 09/02/19 03:32 98 H 19 157/105 H 97 09/02/19 03:22 171/117 H 09/02/19 03:14 36.5 C 89 09/01/19 22:50 36.8 C 81 16 157/97 H 95 Laboratory Results 09/02/19 09/02/19 09/02/19 Range/Units 07:52 07:52 07:52 WBC 11.32 H (4.8-10.8) K/uL RBC 4.04 L (4.7-6.1) M/uL Hgb 13.8 L (14.0-18.0) g/dL Hct 38.5 L (42-52) % MCV 95.3 (80-100) fL MCH 34.2 H (25-34) pg MCHC 35.8 (32-36) g/dL RDW Std Deviation 45.2 (36.4-46.3) fL RDW Coeff of Giuliana 13.1 (11.5-14.5) % Plt Count 251 (130-400) K/uL MPV 9.4 (7.4-10.4) fL Immature Gran % (Auto) 1.7 % Neut % (Auto) 75.0 % Lymph % (Auto) 12.5 % [place] % (Auto) 10.2 % Eos % (Auto) 0.2 % Baso % (Auto) 0.4 % Neut # (Auto) 8.51 H (1.4-6.5) K/uL Lymph # (Auto) 1.41 (1.2-3.4) K/uL [place] # (Auto) 1.15 H (0.11-0.59) K/uL Eos # (Auto) 0.02 (0-0.5) K/uL Baso # (Auto) 0.04 (0-0.2) K/uL Immature Gran # (Auto) 0.19 H (0.00-0.02) K/uL Sodium 138 (136-145) mmol/L Potassium 3.6 (3.5-5.1) mmol/L Chloride 106 (98-107) mmol/L Carbon Dioxide 25 (21-32) mmol/L Anion Gap 8.0 (3-11) BUN 3 L (7-18) mg/dl Creatinine 0.76 (0.6-1.4) mg/dl Est Cr Clr Drug Dosing 126.3 ml/min Est GFR ( Amer) 133.2 Est GFR (Non-Af Amer) 114.9 BUN/Creatinine Ratio 4.0 L (10-20) Glucose 89 (70-99) mg/dl Calcium 9.7 (8.5-10.1) mg/dl Ionized Calcium 1.15 (1.12-1.32) mmol/L Phosphorus 4.1 (2.5-4.9) mg/dl Magnesium 1.6 L (1.8-2.4) mg/dl Total Bilirubin 0.9 (0.2-1) mg/dl AST 39 H (15-37) U/L ALT 91 H (12-78) U/L Alkaline Phosphatase 80 (45-117) U/L Total Protein 7.6 (6.4-8.2) gm/dl Albumin 3.7 (3.4-5.0) gm/dl Globulin 3.9 (2.5-4.0) gm/dl Albumin/Globulin Ratio 0.9 (0.9-2) Medications Administered Current Inpatient Medications [facility] Stop: 09/26/19 07:59 Last Admin: 09/02/19 08:04 Dose: 500 mg Documented by: Acyclovir (Zovirax 5%) 1 appln EXT Q4H [facility] Stop: 09/06/19 12:29 Last Admin: 09/02/19 08:05 Dose: 1 appln Documented by: Clonidine HCl (Catapres) 0.1 mg PO Q8H PRN PRN Reason: Blood Pressure - High Stop: 09/29/19 16:33 Last Admin: 09/01/19 12:28 Dose: 0.1 mg Documented by: Diphenhydramine HCl (Benadryl) 25 mg IV Q8H PRN PRN Reason: Headache or Pain Stop: 09/26/19 07:29 Last Admin: 09/02/19 03:04 Dose: 25 mg Documented by: Heparin Sodium (Porcine) (Heparin Sodium (Porcine)) 5,000 units SQ Q8 [facility] Stop: 09/30/19 13:59 Last Admin: 09/02/19 05:35 Dose: Not Given Documented by: Hydralazine HCl (Hydralazine Hcl) 10 mg IV Q6H PRN PRN Reason: hypertension Stop: 09/24/19 16:44 Last Admin: 09/02/19 03:23 Dose: 10 mg Documented by: Pantoprazole Sodium 40 mg/ (Syringe) 10 mls @ 5 mls/min IV BID [facility] Stop: 09/24/19 20:59 Last Admin: 09/02/19 08:04 Dose: 5 mls/min Documented by: Promethazine HCl 6.25 mg/ (Sodium Chloride) 50.25 mls @ 201 mls/hr IV Q6H PRN PRN Reason: Headache or Pain Stop: 09/24/19 13:11 Last Infusion: 08/30/19 13:34 Dose: Infused Documented by: Levetiracetam 750 mg/ Sodium (Chloride) 107.5 mls @ 440 mls/hr IV Q12H [facility] Stop: 09/30/19 07:59 Last Infusion: 09/02/19 08:03 Dose: Infused Documented by: Ceftriaxone Sodium 2,000 mg/ (Dextrose) 70 mls @ 100 mls/hr IV Q12H [facility] Stop: 09/09/19 15:29 Last Infusion: 09/02/19 03:03 Dose: Infused Documented by: Vancomycin HCl 1,000 mg/ (Sodium Chloride) 270 mls @ 125 mls/hr IV Q8H [facility]; Protocol Stop: 09/10/19 00:00 Last Infusion: 09/02/19 05:36 Dose: Infused Documented by: Doxycycline Hyclate 100 mg/ (Dextrose) 110 mls @ 50 mls/hr IV Q12H [facility] Stop: 09/09/19 19:59 Last Admin: 09/02/19 08:04 Dose: 50 mls/hr Documented by: Acyclovir Sodium 800 mg/ (Dextrose) 266 mls @ 250 mls/hr IV Q8H [facility] Stop: 09/09/19 17:29 Last Infusion: 09/02/19 09:55 Dose: Infused Documented by: Magnesium Sulfate/Dextrose (Magnesium Sulfate / D5w) 1 gm in 100 mls @ 50 mls/hr IV ONE ONE Stop: 09/02/19 12:14 Ioversol (Optiray 320 125ml) 120 ml IV ONCE PRN PRN Reason: Interaction Checking Stop: 09/05/19 10:37 Last Admin: 09/01/19 10:39 Dose: 120 ml Documented by: Magnesium Oxide (Mag-Ox) 400 mg PO BID [facility] Stop: 10/01/19 10:44 Last Admin: 09/02/19 08:06 Dose: 400 mg Documented by: Metoclopramide HCl (Reglan) 10 mg IV Q8H PRN PRN Reason: Headache or Pain Stop: 09/26/19 07:29 Last Admin: 08/29/19 12:37 Dose: 10 mg Documented by: Miscellaneous Information (Consult) 1 ea N/A UD PRN PRN Reason: Consult Stop: 09/29/19 15:00 Multivitamins/Minerals (Multivitamin W/ Minerals Tab) 1 tab PO DAILY@1200 [facility] Stop: 09/24/19 11:59 Last Admin: 09/01/19 12:25 Dose: 1 tab Documented by: Ondansetron HCl (Zofran) 4 mg IV Q6H PRN PRN Reason: Nausea Stop: 09/23/19 23:48 Last Admin: 08/30/19 10:45 Dose: 4 mg Documented by: Potassium Chloride (Klor-Con M20) 20 meq PO TID [facility] Stop: 09/28/19 08:59 Last Admin: 09/02/19 08:05 Dose: 20 meq Documented by: Potassium Phosphate (Phospha 250 Neutral 155-852-130 Mg) 1 tab PO QID [facility] Stop: 10/01/19 12:59 Last Admin: 09/02/19 08:05 Dose: 1 tab Documented by: (1) Hydrocephalus Hydrocephalus type: other Qualified Code(s): G91.8 - Other hydrocephalus (2) HTN (hypertension) Hypertension type: unspecified Qualified Code(s): I10 - Essential (primary) hypertension
[2019-09-02] MEDS ORDERED: MAGNESIUM SULFATE / D5W 1 GM/100 ML BAG IV ONE (10:15)
[2019-09-02] MEDS ORDERED: CYANOCOBALAMIN 500 MCG TABLET (VITAMIN B-12) PO SCH (10:45)
[2019-09-02] MEDS ORDERED: THIAMINE HCL 100 MG TAB PO SCH (10:45)
[2019-09-02] MEDS ORDERED: VANCOMYCIN TROUGH ONE (11:30)
[2019-09-02] MEDS: CEROVITE ADV FORMULA TAB PO SCH (11:40)
--- NOTE | 2019-09-02 12:18 | Pharmacy Report ---
Pharmacy Abx Dose Short Note - Date of Service September 02, 2019 - Assessment & Plan Assessment * Mr Roa is a 39 year old M receiving Vancomycin/Ceftriaxone/Doxycycline/Acyclovir for treatment of possible meningitis/Lyme. * Day #4 of antimicrobial therapy. Plan Vancomycin * Trough level of 18.8 mcg/mL is therapeutic * Continue dose of 1000 mg IV every 8 hours * Goal trough level for ?meningitis: 15 to 20 mcg/mL * No further levels have been ordered at this time. If patient remains on vancomycin, will consider the need for additional levels in a couple of days. Pharmacy will continue to follow and will adjust dose/frequency as necessary. Thank you.
--- NOTE | 2019-09-02 18:11 | Discharge Summary ---
Date of Service September 02, 2019 Admission HPI Per Admitting Provider Patient is a 39 yo male who presented to the ED for altered mental status and confusion x 1 week. The patient does not give a very reliable history, but he does state that his mother could be helpful and gave permission for us to call. His mother stated that over the past 1 week, he has started to become very confused. He has had problems walking and getting himself out of bed. He has also lost control of his bladder at times. He has had decreased appetite, vomiting, and headache at home. The patient typically functions much better than he is currently. He does have history of drug abuse, but his mother states he hasn't been using recently that she knows of. 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 The patient has been chronically noncompliant from review of his history. He has eloped from the hospital on multiple occasions in the past. 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 He has no history of alcohol use per his record. Since presentation, patient noted to have WBC count elevated at 12.14, hyponatremia down to 131, hypokalemia down to 2.7, elevated bilirubin of 3.2 but otherwise normal LFTs. Troponin negative. CK normal. TSH low at 0.088 with normal T4. Lyme IgG AB + and IgM AB equivocal. WB pending. Anaplasma smear pending. UA & tox screen pending. Head CT shows no acute changes. CT abd/pelvis showed no acute process. CXR negative. Admission Exam Per Admitting Provider Constitutional: well developed, + ill appearing and + altered mental status; + not appropriately hydrated Eyes: PERRL, conjunctivae normal, anicteric sclerae ENMT: Ears: no hearing impairment Mouth: + lip abnormality (Very dry) and + dentition abnormality Dry mucous membranes Neck: trachea midline, no thyromegaly Respiratory: normal respiratory effort, lungs clear to auscultation Cardiovascular: RRR, no murmur, no edema Gastrointestinal (Abdomen): normal bowel sounds, soft, nontender, no hepatosplenomegaly Musculoskeletal: Head/Neck/Chest: normocephalic and head atraumatic Extremities: extremities normal to inspection Skin: no rashes, warm and dry Neurologic: CN's II-XI intact bilaterally and moves all extremities; no focal motor deficits Speech / Cognition: normal speech Motor/Sensory: no tremor Psychiatric: Alert, Oriented to place and person. Not oriented to time. He states that the month is March. Flat affect Principal Diagnosis Altered mental status likely secondary to chronic meningitis, hydrocephalus Lyme Disease Seizure Headache History of meningitis: Hydrocephalus: Nausea: Vomiting: Discharge Exam Gen-young male lying in bed, in no acute distress Head-NCAT, EOMI, PERRL, anicteric Sclera Neck- + nuchal rigidity, No JVD Lungs-Clear to Auscultation Bilaterally, No Rales, No Rhonchi, No Wheezing Chest- RRR, No Murmurs noted Abdomen-Soft, Bowel Sounds Present, Non Tender, Non Distended, No Rebound, No R igidity, No Guarding Musculoskeletal-patient is able to move his lower and upper extremities, difficulty to move his neck due to pain Extremities-no LE edema, no sensory loss noted Neuro -patient is awake and answering questions, but he does not answer all questions appropriately. He is able to move his upper and lower extremities, no sensory loss noted, difficulty moving his neck (did not try to ambulate the patient, per nursing staff patient is very unsteady) Discharge Data Allergies Allergy/AdvReac Type Severity Reaction Status Date / Time Penicillins Allergy Unknown Unknown Verified 08/24/19 17:10 Consultations 08/24/19 20:36 ED Decision to Admit Stat 08/24/19 23:49 Consult Case Management - Discharge Planning Routine 08/25/19 08:05 Consult Neurology Routine 08/25/19 20:05 Consult Gastroenterology Routine 08/25/19 20:32 Consult Psychiatry Routine 08/28/19 16:50 Consult Case Management - Discharge Planning Routine 09/02/19 18:01 Burn CD for patient Stat Ordered Studies 08/24/19 15:55 CT abd pelvis IV con only Stat FINDINGS: The lung bases are clear. The liver, spleen, gallbladder, pancreas, kidneys, and adrenal glands are within normal limits. No bowel wall thickening or obstruction. The pelvic organs are unremarkable. No suspicious lytic or blastic osseous lesions. Patent urachus. Nonobstructing lower pole left renal calcifications unchanged. No evidence for renal hydronephrosis. IMPRESSION: No acute process in the abdomen or pelvis. CT head/brain wo con Stat Impression: 1. Moderate chronic hydrocephalus. 2. Stable heterogeneity of the periventricular deep white matter regions. 3. No acute or interval process compared to the prior exam. 08/24/19 23:49 MR brain wo/w con Routine IMPRESSION: 1. No acute process. 2. Stable hydrocephalus. 3. Stable dural enhancement US abdomen limited Routine IMPRESSION: 1. Cholelithiasis. 2. Hepatic steatosis. 08/30/19 12:37 CT head/brain wo con Stat IMPRESSION: 1. Motion artifact. No change in mild to moderate hydrocephalus compared to the prior studies. Stable periventricular hypodensity which favors transependymal flow of CSF. 2. No acute intracranial hemorrhage. 08/31/19 21:08 CT angio head wo/w Routine IMPRESSION: 1. Motion degraded examination. 2. There is no hemorrhage, mass effect, or evidence of acute territorial ischemia by CT criteria. 3. Hydrocephalus with evidence of transependymal flow of CSF is similar to yesterday. 4. Only the right vertebral artery is identified at the skull base. 5. The basilar artery is diminutive and there is origin of both posterior cerebral arteries. 6. The P1 segment on the right is atretic versus occluded. This is of doubtful significance. 7. The dural sinuses are not opacified, likely due to phase of enhancement. These are not diagnostically assessed. 08/31/19 21:09 CT angio neck with con Routine FINDINGS: The aortic arch and proximal great vessels are widely patent. There is no significant stenosis, occlusion, or dissection identified within the bilateral common carotid, internal carotid, or vertebral arteries. The left vertebral artery is congenitally small. IMPRESSION: No significant stenosis, occlusion, or dissection identified within the carotid or vertebral arteries. Hospital Course (1) Altered mental status: (2) Headache: (3) History of Lyme disease: (4) History of meningitis: (5) Hydrocephalus: (6) Nausea: (7) Vomiting: Patient with acutely altered mental status & headache x 1 week per his mother. Toxic Metabolic encephalopathy sec to Meningitis/hydrocephalus Lyme screen + (Equivocal IgM), but patient has hx of Lyme meningitis. WB +Lyme. Anaplasma smear is negative. Ceftriaxone and Doxycycline given on admission, ceftriaxone continued through August 25, doxycycline continued during the admission, switched from p.o. to IV form on August 29 UA -negative CT of head and abdomen/pelvis unrevealing. With hx of meningitis, anoxic brain injury, brain abscess, and hydrocephalus, Negative MRI Neurology initially recommended for headache Toradol, Reglan, and Benadryl for pain, and stopped Lexapro Aspiration, fall, & seizure precautions + nuchal rigidity Neurology consulted, patient underwent LP on August 29. CSF consistent with meningitis, opening pressure elevated, protein elevated, WBC elevated, glucose decreased. On August 29, antibiotics started vancomycin, Rocephin restarted, doxycycline continued, IV acyclovir. 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 He was admitted to [facility] in November 2018 for questionable brain abscess, and treated with vancomycin and ceftriaxone, Flagyl History of hydrocephalus possible uncal herniation There was concern also on TTE for possible vegetation on anterior tricuspid leaflet, and GROVER was recommended, not clear if GROVER was obtained. Discussed with neurology, given that patient is not making significant progress, continues to be confused, has imbalance issues and incontinence, strongly recommend transfer to tertiary Medical Center for further evaluation by infectious disease and neurosurgery. [facility] contacted, Dr. Garnica, from neurology willing to accept the patient for further evaluation. (8) HTN (hypertension): BP elevated in ED. Blood pressure acceptable (9) SIADH (syndrome of inappropriate ADH production): (10) Alkalosis: (11) Hyponatremia: (12) Hypokalemia: Chronic SIADH, but very dehydrated on exam, on admission Worsened hyponatremia and also hypokalemia likely secondary to vomiting, decreased appetite, and poor PO intake overall. Lactated ringer's x 2 bags PO Potassium Continue PO intake as well as tolerated Hyponatremia, hypokalemia now resolved. (13) Hyperbilirubinemia: Elevated bilirubin level to 3.2 with otherwise normal LFTs, but + vomiting RUQ US-fatty Liver, Gallstones (14) Subclinical hyperthyroidism: TSH low. T4 normal. Likely subclinical hyperthyroidism in the setting of acute issue. (15) History of heroin use: (16) History of opioid abuse: Tox screen negative. (17) DVT prophylaxis: Lovenox Shingles (small rash on patient's buttocks)- Valtrex started on August 26 Total Time Total Time Spent Total Time Spent (In Minutes): 45 Total Time Includes: Examination of the Patient, Discharge Planning, Medication Reconciliation and Communication With Other Providers Discharge Plan Discharge Items Patient Disposition: Transfer Acute Care Hospital Reason For Visit: ALTERED MENTAL STATUS Discharge Diagnosis: Altered mental status likely secondary to chronic meningitis, hydrocephalus Lyme Disease Seizure Headache History of meningitis: Hydrocephalus: Nausea: Vomiting: Activity: Per Instructions section Non-emergency contact: Primary Care Provider Call non-emergency contact if: you have any medication questions Follow-up/Referrals: Josiane Obrien DO [Primary Care Provider] - Volodymyr Cho MD [Physician] - 09/03/19 10:20 am Diet: Regular Addtl Attending Provider Instructions: Discussed with neurology, given that patient is not making significant progress, continues to be confused, has imbalance issues and incontinence, strongly recommend transfer to [facility] for further evaluation by infectious disease and neurosurgery. [facility] contacted, Dr. Garnica, from neurology willing to accept the patient for further evaluation. Pending Studies at Discharge: No Stand-Alone Forms: My Confabb, Smoking Cessation Skilled Items Patient informed of condition?: Yes DNR: No Discharge Level of Care: Other Communicable Disease: Yes Discharge Prognosis: Other Lines: Peripheral IV Urinary Catheter: No Medications and DC Order Prescriptions: Continued levetiracetam [Keppra] 500 mg tablet 750 mg PO BID RF: 0 Emgality Pen 120 mg/mL pen injector 120 mg SUBCUT MONTHLY RF: 0 multivitamin with minerals [Men's One Daily] Tablet 1 tab PO DAILY RF: 0 Discontinued escitalopram oxalate 10 mg tablet 10 mg PO DIRECTED RF: 0 escitalopram oxalate 20 mg tablet 20 mg PO DIRECTED RF: 0 Discharge Orders: Discharge Order (Routine); Ordered 09/02/19 Ordered By: Luis Bauman Admission Data Admit Date/Time: 08/24/19 21:38 Attending Provider: Luis Bauman Admit Provider: Darrius Palafox Primary Care Provider: Josiane Obrien Other Providers: Varinder Canchola ; Grant Wright ; Miguel Fernando ; Edwardo iHnton Ashley ; Reuben Mace ; Cortez Asher ; Sabino Negron ; Smitha Silva ; Vivek Ellis ; Jocelynn Ramos ; Giovana Schwartz ; Rosie Latham ; Kathy Fontenot ; Eleazar Levy I. ; Leelee Pereira ; Annie Bowen ; Elisa Escalona ; Saul Bravo ; [place] ; [facility] [place] ; [facility] ; Tay Blackwell
[2019-09-02 18:15] LABS: EBV DNA Quant PCR <200 copies/mL (<200); EBV DNA Quant Source CSF; EBV DNA, Quant Log <2.30 Log cps/mL (<2.30)
[2019-09-03 04:50] LABS: Lyme DNA PCR CSF or Synovial Not detected (Not Detected); Lyme DNA Source CSF
== END 2019-09-02 21:40 | disposition short-term general hospital (02) | DRG 867 ==
LOC: ED 14:19 → SUATTDRO 21:38 → 2W 21:38 → 3W 08-30 00:08